=== PATIENT | male | born 1960 | race Caucasian/White ===

== ENCOUNTER 2018-05-11 08:28 | Inpatient (IN) | payer SELFPAY ==
[2018-05-11] VITALS (7 sets, daily range): BP systolic 141–171; BP diastolic 71–99; PULSE 75–108; RESP 15–19; TEMP 36.1–37.3; O2SAT 92–99
--- NOTE | 2018-05-11 09:16 | DI.RAD_ITS ---
SYMPTOMS/DIAGNOSIS: LEFT UPPER QUADRANT ABDOMINAL PAIN, ? ACUTE DISEASE PA AND LATERAL CHEST: There are no prior comparison exams. A hiatal hernia is noted. The lungs are suboptimally inflated on both views, but appear clear. The heart size is within normal limits. IMPRESSION: Hiatal hernia. No acute abnormality.
--- NOTE | 2018-05-11 09:19 | ED.GENADUL_ITS ---
Discharge Plan Discharge Details Chief Complaint: Abd Prob Reason For Visit: ACUTE GALLSTONE PACREATITIS,TRANSMINITIS Admit Date/Time: 05/11/18 11:41 Admit Provider: Jer Olmstead Attending Provider: Jer Olmstead Primary Care Provider: Amos Guevara ED Provider: Dorita Aguirre Discharge Data Discharge Date/Time-TO BE ENTERED AT DEPARTURE: 05/11/18 13:18 Medical Decision Making MDM Narrative Medical decision making narrative: 57-year-old male with a history of gallstones , diabetes, hypertension, hyperlipidemia who presents for dull, sharp, cramping intermittent left upper quadrant abdominal pain since last night. States pain started after eating a T-bone steak. Admits to vomiting 3 times since then, which is mainly been food and clear, last occurring at 7 AM. No relief with Tylenol. Blood pressure 141/71, otherwise vitals within normal limits. Patient appears uncomfortable. Will place an IV, bolus IV fluids, labs, chest x-ray, EKG, ultrasound gallbladder to rule out acute cholecystitis. Dose of morphine ordered. 0848 --EKG notes a rate of 76, sinus, no acute ST elevation or depression. QTc 432. QRS 94. 0915 --no relief after 1st dose of morphine. Second dose morphine ordered. 1000 --lab called to state patient's lipase delayed due to lipemic blood. 1040 --discussed with radiologist Dr. Talamantes -abdominal ultrasound with gallstones but no signs of acute cholecystitis. No biliary dilatation, no pericholecystic fluid, common bile duct normal. Labs reviewed and no white blood cell count 14. Glucose 269. Bicarb 26.4. Anion gap 9.6. Lipase 14,714. Creatinine 1.14. AST 196. ALT 207. Alk phos 183. Troponin 0.03. Presentation appears consistent with gallstone pancreatitis. Will call surgery for admission. Will order CT abdomen and pelvis. 1130 --discussed with Dr. Olmstead -accepts patient for admission. Would like continued fluids and pain medication ordered. Dr. Olmstead will follow up on CT abdomen. 1452 --CT notes severe pancreatitis. CXR no acute disease. HPI - General Adult General Mode of arrival: ambulatory . Date/Time Provider Initiated Documentation: 05/11/18 08:43 . Limitations to Documentation: no limitations . Information obtained by: patient . HPI Narrative: Patient is a 57-year-old male with morbid obesity, diabetes, hypertension, hyperlipidemia and known history of gallstones who presents with left upper quadrant pain since last night. Patient describes the pain is intermittent, dull, sharp and cramping without radiation. Patient vomited 3 times, last at 7 AM which is mainly food and clear. He ate a fatty meal of the [employer] last night. He denies any relief with Tylenol. He denies known fever, urinary symptoms, or diarrhea. He denies chest pain or shortness of breath. Patient states I think it is my gallstones. Past medical history: Diabetes, hypertension, hyperlipidemia Surgical history: Neck lipoma resection Social history: rare ETOH none recent, no tobacco or drugs Meds: Exforge, Aspirin, Lipitor, Metformin, Metoprolol, Sertraline, Spirinolactone, Terazosin Allergies: Denies PCP: Dr. Guevara Related Data Home Medications Medication Instructions Recorded Confirmed amlodipine-valsartan [Exforge 1 ea PO DAILY 10/04/13 05/11/18 10-320 mg Tablet] aspirin [Aspir 81] 81 mg PO DAILY 10/04/13 10/04/13 metformin 500 mg PO BID 10/04/13 10/04/13 metoprolol succinate 200 mg PO DAILY 10/04/13 05/11/18 sertraline 100 mg PO DAILY 10/04/13 05/11/18 atorvastatin 40 mg PO DAILY 05/11/18 05/11/18 spironolactone 25 mg PO DAILY 05/11/18 05/11/18 terazosin 5 mg PO DAILY 05/11/18 05/11/18 Allergies Allergy/AdvReac Type Severity Reaction Status Date / Time No Known Allergies Allergy Unverified 10/04/13 15:23 General Stated Complaint: Abd Prob CHRISTIANO: 3 Review of Systems Review of Systems All systems reviewed & are unremarkable except as noted in HPI and below Constitutional Denies chills, Denies excessive sweating, Denies fatigue, Denies fever(s), Denies weakness and Denies weight loss Eyes Patient Reports system reviewed and no additional complaints, except as docu and Denies blurry vision ENT Denies vertigo, Denies dizziness, Denies otalgia, Denies nasal congestion, Denies sore throat and Denies throat swelling Cardiovascular Denies chest pain, Denies syncope, Denies rapid heart rate and Denies dyspnea Respiratory Denies dyspnea Gastrointestinal Reports abdominal pain, Denies diarrhea, Reports nausea and Reports vomiting Genitourinary Denies hematuria, Denies dysuria and Denies flank pain Musculoskeletal Denies back pain and Denies joint swelling Integumentary/Breasts Denies lesions and Denies rash Neurologic Denies behavioral changes, Denies confusion, Denies vertigo, Denies dizziness, Denies syncope and Denies weakness Psychiatric Denies behavioral changes, Denies confusion and Denies depression Endocrine Denies excessive sweating and Denies fatigue Hematologic/Lymphatic Denies easy bruising and Denies lymphadenopathy Allergic/Immunologic Denies throat swelling [facility] Medical History Acute gallstone pancreatitis (Acute) Diabetes type 2, controlled (Chronic) Essential hypertension (Chronic) Hyperlipidemia (Chronic) Morbid obesity with BMI of 50.0-59.9, adult (Chronic) Social History household members: spouse marital status: current occupation: [employer] Smoking/Tobacco Use Status: Never alcohol intake: current alcohol intake frequency: holidays/special occasions only Alcohol type: beer, wine and hard liquor substance use type: does not use Surgical History History of tonsillectomy (Resolved) Exam Const General: cooperative Nutritional Appearance: obese Orientation: alert, awake and oriented x3 HENMT Head: normal to inspection Ears: hearing grossly normal bilaterally and external ears normal General nose exam: external nose normal Face and sinus: normal facial exam Mouth: oral mucosae normal Eyes General: appearance normal, both eyes and all related structures Eyelids: eyelids normal Pupils: PERRL EOM: EOM intact bilaterally Neck Neck: normal visual inspection Lymphatic: no lymphadenopathy noted Chest Chest: normal inspection of the chest Resp Effort & Inspection: normal respiratory effort and able to speak in complete sentences Auscultation: clear to auscultation bilaterally Cardio Rate: regular rate Rhythm: regular rhythm GI Inspection: normal to inspection Palpation: soft, no guarding, no hepatosplenomegaly, no masses and tender ( obese abdomen) in the epigastrum, in the LUQ and in the RUQ; not in the LLQ, not in the RLQ and with no rebound tenderness Auscultation: normal bowel sounds Back/Spine/Pelvis Back: no CVA tenderness Skin General skin exam: no rashes or lesions noted Neuro General: alert and awake Cognition: normal cognition Speech: speech normal Gait: normal gait Motor: muscle tone normal throughout Sensory Exam: no sensory deficits noted Extrem General: normal to inspection and full ROM Psych Appearance: grossly normal Mental Status: mental status grossly normal Speech and Movement: speech and movement normal Affect: normal affect Thought Process: normal Course Vital Signs Temperature 97.0 F L 05/11/18 08:43 Pulse 75 05/11/18 08:43 Respiratory Rate 15 05/11/18 08:43 Blood Pressure 141/71 H 05/11/18 08:43 Pulse Oximetry 99 05/11/18 08:43 Temperature 97.0 F L 05/11/18 08:43 Pulse 75 05/11/18 08:43 Respiratory Rate 15 05/11/18 08:43 Blood Pressure 141/71 H 05/11/18 08:43 Pulse Oximetry 99 05/11/18 08:43
[2018-05-11 09:23] LABS: Abs Immature Grans 0.02 k/cumm (0.0-0.09); Absolute Basophil Count 0.01 k/cumm (0.0-0.2); Absolute Eosinophil Count 0.01 k/cumm (0.0-0.7); Absolute Lymphocyte Count 0.89 k/cumm (1.2-3.4); Absolute Monocyte Count 0.67 k/cumm (0.11-0.7); Absolute Neutrophil Count 13.05 k/cumm (1.2-6.7); Basophils % 0.1; Eosinophils % 0.1; HCT 40.4 % (40.0-50.0); HGB 13.1 g/dL (13.5-17.5); Immature Grans % 0.1; Lymphocytes % 6.1; Mean Corp. HGB Concentration 32.4 g/dL (32.0-36.0); Mean Corpuscular Hemoglobin 29.3 pg (27.0-33.0); Mean Corpuscular Volume 90.4 fL (80-95); Mean Platelet Volume 9.5 fL (8.0-11.0); Monocytes % 4.6; Platelet Count 303 x1000/uL (130-400); RBC 4.47 m/cumm (4.50-6.00); White Blood Cell Count 14.66 k/cumm (4.4-10.8)
[2018-05-11] MEDS: MORPHine 10 MG/ML VIAL 4 MG IVP ×2 (09:26→10:14)
[2018-05-11 09:32] LABS: ALT 207 U/L (12-78); AST 196 U/L (15-37); Albumin 3.5 g/dL (3.4-5.0); Alkaline Phosphatase 183 U/L (46-116); Anion Gap 9.6 mmol/L (3-11); BUN 24 mg/dL (7-18); Bilirubin, Direct 0.28 mg/dL (0.00-0.20); Bilirubin, Total 0.8 mg/dL (0.2-1.0); CO2 26.4 mmol/L (21.0-32.0); CREATININE 1.14 mg/dL (0.70-1.30); Calcium 9.3 mg/dL (8.5-10.1); Chloride 102 mmol/L (98-107); Glucose 269 mg/dL (70-100); Magnesium 1.9 mg/dL (1.8-2.4); Potassium 4.1 mmol/L (3.5-5.1); Sodium 138 mmol/L (136-145); Total Protein 7.4 g/dL (6.4-8.2); Troponin I 0.03 ng/mL (0.00-0.06)
--- NOTE | 2018-05-11 09:39 | DI.US_ITS ---
SYMPTOM/DIAGNOSIS: UPPER ABD PAIN, R/O ACUTE CHOLECYSTITIS ABDOMEN ULTRASOUND: Comparison is made with 24 March 2014. The exam is quite limited by the patient's body habitus. Stones are again noted in the gallbladder. There is no abnormal gallbladder distension or wall thickening. There is a question of worsening of the liver echotexture. The spleen is at the upper limits of normal in size, 13 cm , unchanged when compared with the previous exam. There is no evidence of biliary dilatation. There is a question of a small amount of fluid near the spleen. The pancreas and aorta are obscured by bowel gas. There is no evidence of hydronephrosis. An area of echogenicity is seen in the right kidney which may be artifactual vs nonobstructing stone. An additional similar appearing echogenic focus is seen in the left renal parenchyma. IMPRESSION: Limited exam due to the patient's body habitus. Cholelithiasis is demonstrated. There is no evidence of biliary dilatation or acute cholecystitis. There is a question of artifact vs nonobstructing bilateral renal calculi.
[2018-05-11 10:19] LABS: Lipase 14714 U/L (73-393)
[2018-05-11] MEDS: Normal Saline 1,000 ML 1000 ML IV (11:14)
[2018-05-11] MEDS: HYDROmorphone 2 MG/ML VIAL (11:16)
--- NOTE | 2018-05-11 11:42 | DI.CT_ITS ---
SYMPTOMS/DIAGNOSIS: GALLSTONE PANCREATITIS, ? ACUTE ABSCESS CT OF THE ABDOMEN AND PELVIS: Images were performed from the lung bases through the ischial tuberosities after IV and without oral contrast. There are tiny bilateral pleural effusions. There is a moderate-sized hiatal hernia. There is a large amount of inflammation seen around the pancreas with fluid seen medial and inferior to the spleen. The liver, spleen, adrenals and kidneys appear normal. There is secondary inflammation of the duodenum. Gallstones are again noted. There is no gallbladder wall thickening. No bowel dilatation is seen. The appendix appears normal. The bladder and prostate are unremarkable. IMPRESSION: Findings are consistent with severe pancreatitis and secondary inflammation of the duodenum. There is cholelithiasis without evidence of cholecystitis.
--- NOTE | 2018-05-11 12:57 | W.PM.HP.N ---
Date of service: 05/11/18 Time of Service: 12:57 Assessment and Plan (1) Acute gallstone pancreatitis: Start date: 05/11/18 Start time: 13:27 Current visit: Yes Status: Acute 57-year-old gentleman with acute gallstone pancreatitis. I reviewed the findings both diagnostic and clinical with Mr. juan alberto Deleon. Will admit him for conservative treatment of gallstone pancreatitis with: IV fluids, antiemetics, pain medication. Repeat labs in the morning to trend lipase and follow bilirubin. Eventual plan for cholecystectomy prior to discharge if the pancreatitis improves and there is no evidence of obstructing stone otherwise will need MRCP/ERCP to evaluate treat for potential obstructing gallstone. History of Present Illness Chief Complaint: Abdominal pain Narrative: 57-year-old gentleman presenting to emergency room less than 24 hours of sudden onset abdominal pain. He has associated nausea and vomiting. He has had pain similar to this in the past but not as intense. He has known gallstones. He has had 4-5 attacks over the last 5 years. His last attack was in March. Review of Systems Constitutional Reports body ache(s), Denies chills, Reports difficulty sleeping, Reports fatigue, Denies fever(s), Denies lethargy and Reports malaise Eyes Patient Denies blurry vision, Denies diplopia and Denies loss of vision ENT Denies vertigo, Denies dizziness, Denies hearing loss, Denies hoarseness, Denies epistaxis and Denies sore throat Cardiovascular Denies chest pain at rest, Denies chest pain with activity, Denies rapid heart rate, Denies pedal edema, Denies dyspnea and Denies dyspnea on exertion Respiratory Denies chest congestion, Denies cough, Denies dyspnea, Denies dyspnea on exertion and Denies wheezing Gastrointestinal Reports abdominal pain, Denies melena, Denies bloating, Denies hematochezia, Denies change in bowel habits, Denies heartburn, Reports nausea and Reports vomiting Genitourinary Denies urinary frequency, Denies urinary hesitancy and Denies urinary urgency Musculoskeletal Denies back pain, Denies myalgias, Denies arthralgias and Denies muscle weakness Integumentary/Breasts Denies rash and Denies jaundice Neurologic Denies behavioral changes, Denies confusion, Denies vertigo, Denies dizziness, Denies focal weakness, Denies loss of vision and Denies seizure-like activity Psychiatric Denies anxiety, Denies behavioral changes, Denies confusion, Denies depression, Reports irritability and Denies mood swings Endocrine Reports fatigue Hematologic/Lymphatic Denies easy bleeding and Denies easy bruising Allergic/Immunologic Denies wheezing PFSH Medical History Acute gallstone pancreatitis (Acute) Diabetes type 2, controlled (Chronic) Essential hypertension (Chronic) Hyperlipidemia (Chronic) Morbid obesity with BMI of 50.0-59.9, adult (Chronic) Social History household members: spouse marital status: 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 Smoking/Tobacco Use Status: Never alcohol intake: current alcohol intake frequency: holidays/special occasions only Alcohol type: beer, wine and hard liquor substance use type: does not use Surgical History History of tonsillectomy (Resolved) Meds Home Medications Medication Instructions Recorded Confirmed Type amlodipine-valsartan [Exforge 1 ea PO DAILY 10/04/13 10/04/13 History 10-320 mg Tablet] aspirin [Aspir 81] 81 mg PO DAILY 10/04/13 10/04/13 History metformin 500 mg PO BID 10/04/13 10/04/13 History metoprolol succinate 200 mg PO DAILY 10/04/13 10/04/13 History sertraline 100 mg PO DAILY 10/04/13 10/04/13 History Allergies Allergy/AdvReac Type Severity Reaction Status Date / Time No Known Allergies Allergy Unverified 10/04/13 15:23 Exam Const General: cooperative, well groomed and acute distress mild Nutritional Appearance: obese morbidly obese Orientation: alert, awake and oriented x3 HENMT Head: normal to inspection Face and sinus: normal facial exam Eyes Sclera: sclerae normal Pupils: PERRL EOM: EOM intact bilaterally Neck Neck: normal visual inspection, no lymphadenopathy, trachea midline and supple Chest Chest: normal inspection of the chest Resp Effort & Inspection: normal respiratory effort, no audible wheezes, no cough and not labored Cardio Rate: regular rate Rhythm: regular rhythm GI Inspection: normal to inspection, non-distended, no incisions, large pannus and obesity Palpation: soft and tender in the epigastrum and in the RUQ Rectal Exam: deferred Skin General skin exam: no rashes or lesions noted Extrem General: full ROM, normal capillary refill and no clubbing, cyanosis or edema Psych Appearance: well kempt Mental Status: mental status grossly normal Judgment: judgment good Results Imaging Chest x-ray: report reviewed Abdomen CT scan report/results: pending CT scan - pelvis: pending Abdominal ultrasound report/results: report reviewed Labs : 05/11/18 09:07 05/11/18 09:07 Laboratory Results - last 24 hr 05/11/18 05/11/18 05/11/18 09:07 09:07 12:38 WBC 14.66 H RBC 4.47 L Hgb 13.1 L Hct 40.4 MCV 90.4 MCH 29.3 MCHC 32.4 RDW 13.0 Plt Count 303 MPV 9.5 Immature Gran % 0.1 Neutrophils % 89.0 Lymphocytes % 6.1 Monocytes % 4.6 Eosinophils % 0.1 Basophils % 0.1 Absolute Neutrophils 13.05 H Absolute Lymphocytes 0.89 L Absolute Monocytes 0.67 Absolute Eosinophils 0.01 Absolute Basophils 0.01 Sodium 138 Cancelled Potassium 4.1 Cancelled Chloride 102 Cancelled Carbon Dioxide 26.4 Cancelled Anion Gap 9.6 Cancelled BUN 24 H Cancelled Creatinine 1.14 Cancelled Estimated GFR/1.73 m2 >= 60.00 Cancelled Glucose 269 H Cancelled Calcium 9.3 Cancelled Magnesium 1.9 Cancelled Total Bilirubin 0.8 Cancelled Conjugated Bilirubin 0.28 H AST 196 H Cancelled ALT 207 H Cancelled Alkaline Phosphatase 183 H Cancelled Troponin I 0.03 C-Reactive Protein Cancelled Total Protein 7.4 Cancelled Albumin 3.5 Cancelled Lipase 52234 H 05/11/18 12:48 WBC RBC Hgb Hct MCV MCH MCHC RDW Plt Count MPV Immature Gran % Neutrophils % Lymphocytes % Monocytes % Eosinophils % Basophils % Absolute Neutrophils Absolute Lymphocytes Absolute Monocytes Absolute Eosinophils Absolute Basophils Sodium Cancelled Potassium Cancelled Chloride Cancelled Carbon Dioxide Cancelled Anion Gap Cancelled BUN Cancelled Creatinine Cancelled Estimated GFR/1.73 m2 Cancelled Glucose Cancelled Calcium Cancelled Magnesium Total Bilirubin Cancelled Conjugated Bilirubin AST Cancelled ALT Cancelled Alkaline Phosphatase Cancelled Troponin I C-Reactive Protein Total Protein Cancelled Albumin Cancelled Lipase
--- NOTE | 2018-05-11 13:30 | DI.VRAD_ITS ---
EXAM: XR Chest, 2 Views EXAM DATE/TIME: 05/11/2018 12:48 PM CLINICAL HISTORY: 57 years old, male; Pain; Other: Gallstone pancreatitis R/O acute abscess TECHNIQUE: XR of the chest, 2 views. COMPARISON: No relevant prior studies available. FINDINGS: Lungs: Low lung volumes Pleural space: Unremarkable. No pleural effusion. No pneumothorax. Heart/Mediastinum: Air-fluid level in the retrocardiac region consistent with hiatal hernia Cardiomegaly Bones/joints: Unremarkable for patient's age. IMPRESSION: No acute process Dictated and Authenticated by: Rekha Carver MD. Ordering:MARK COULTER MD
--- NOTE | 2018-05-11 13:41 | DI.VRAD_ITS ---
EXAM: CT Abdomen and Pelvis With Intravenous Contrast EXAM DATE/TIME: 05/11/2018 12:42 PM CLINICAL HISTORY: 57 years old, male; Pain; Other: Luq abd pain R/O acute disease TECHNIQUE: Axial computed tomography images of the abdomen and pelvis with intravenous contrast. Coronal and sagittal reformatted images were created and reviewed. COMPARISON: US ABDOMEN 05/11/2018 9:41 AM FINDINGS: Lower thorax: Moderate hiatal hernia ABDOMEN: Liver: Normal. No mass. Gallbladder and bile ducts: Gallstones in the gallbladder with adjacent inflammatory changes may represent primary cholecystitis or secondary cholecystitis from adjacent pancreatitis. Pancreas: Normal. No ductal dilation. Spleen: Severe pancreatitis with fluid extending around the spleen and into the left upper quadrant. Inflammatory changes extend around the stomach and duodenum. Fluid extends into the left pericolic gutter and around the gallbladder. Adrenals: 3.1 cm right adrenal adenoma. Kidneys and ureters: 15 mm nodule right kidney 33 Hounsfield units. Stomach and bowel: No obstruction. No mucosal thickening. Inflammatory changes surround the stomach and duodenum and loops of small bowel Appendix: Normal appendix PELVIS: Bladder: Distended bladder . Reproductive: Unremarkable as visualized. ABDOMEN and PELVIS: Intraperitoneal space: Normal. No free air. No significant fluid collection. Bones/joints: No acute fracture. No dislocation. Soft tissues: No evidence of abscess. Ventral hernia contains fat Vasculature: No thrombus in the portal vein or splenic vein. Lymph nodes: Normal. No enlarged lymph nodes. IMPRESSION: 1. Severe pancreatitis with fluid extending around the spleen and into the left upper quadrant. Inflammatory changes extend around the stomach and duodenum. Fluid extends into the left pericolic gutter and around the gallbladder. 2. Gallstones in the gallbladder with adjacent inflammatory changes may represent primary cholecystitis or secondary cholecystitis from adjacent pancreatitis. 3. No thrombus in the portal vein or splenic vein. 4. No evidence of abscess. 5. 3.1 cm right adrenal adenoma. 6. 15 mm nodule right kidney 33 Hounsfield units. THIS REPORT CONTAINS FINDINGS THAT MAY BE CRITICAL TO PATIENT CARE. The findings were verbally communicated via telephone conference with Dr. Jimenez at 1:40 PM EDT on 05/11/2018. The findings were acknowledged and understood. Dictated and Authenticated by: Rekha Carver MD. Ordering:MARK COULTER MD
[2018-05-11] MEDS: ACETAMINOPHEN 1,000 MG/100 ML BTL 400 MG IVPB ×2 (14:41→21:53)
[2018-05-11] MEDS: Lactated Ringers 1,000 ML 150 ML IV ×2 (14:41→21:04)
[2018-05-11] MEDS: Pantoprazole 40 MG VIAL IVP (14:42)
[2018-05-11] MEDS: Normal Saline Flush 10 ML SYR IVP ×5 (14:43→23:49)
[2018-05-11] MEDS: Ondansetron 4 MG/2 ML VIAL IVP ×2 (17:13→23:49)
[2018-05-11] MEDS: Enoxaparin 40 MG/0.4 ML SYR SC (19:21)
[2018-05-11] MEDS: HYDROmorphone 2 MG/ML VIAL 0.5 MG IVP (21:11)
[2018-05-12] VITALS (13 sets, daily range): BP systolic 93–142; BP diastolic 55–88; PULSE 87–141; RESP 17–20; TEMP 36.7–37.6; O2SAT 82–93
[2018-05-12] MEDS: Normal Saline Flush 10 ML SYR IVP ×8 (03:17→20:49)
[2018-05-12] MEDS: Lactated Ringers 1,000 ML 150 ML IV ×2 (03:29→10:23)
[2018-05-12] MEDS: ACETAMINOPHEN 1,000 MG/100 ML BTL 400 MG IVPB ×3 (06:01→21:30)
[2018-05-12] MEDS: HYDROmorphone 2 MG/ML VIAL 0.5 MG IVP ×2 (06:01→09:57)
[2018-05-12 07:36] LABS: Abs Immature Grans 0.05 k/cumm (0.0-0.09); Absolute Monocyte Count 1.58 k/cumm (0.11-0.7); HCT 40.6 % (40.0-50.0); Immature Grans % 0.2; Lymphocytes % 3.3; Mean Corpuscular Hemoglobin 29.6 pg (27.0-33.0); Mean Corpuscular Volume 92.5 fL (80-95); Mean Platelet Volume 9.8 fL (8.0-11.0); Monocytes % 6.9; Neutrophils % 89.8; Platelet Count 331 x1000/uL (130-400); RBC 4.39 m/cumm (4.50-6.00); RBC Distribution Width 13.6 % (11.8-14.1); White Blood Cell Count 22.87 k/cumm (4.4-10.8)
[2018-05-12 07:50] LABS: C-Reactive Protein 9.31 mg/dL (0.0-0.3); Magnesium 1.7 mg/dL (1.8-2.4)
[2018-05-12 07:54] LABS: Absolute Lymphocyte Count 0.75 k/cumm (1.2-3.4); Absolute Neutrophil Count 20.54 k/cumm (1.2-6.7)
[2018-05-12 07:56] LABS: ALT 109 U/L (12-78); AST 49 U/L (15-37); Albumin 2.9 g/dL (3.4-5.0); Alkaline Phosphatase 133 U/L (46-116); Anion Gap 8.1 mmol/L (3-11); BUN 23 mg/dL (7-18); Bilirubin, Total 0.5 mg/dL (0.2-1.0); CO2 27.9 mmol/L (21.0-32.0); CREATININE 1.15 mg/dL (0.70-1.30); Calcium 7.8 mg/dL (8.5-10.1); Chloride 103 mmol/L (98-107); Glucose 187 mg/dL (70-100); Potassium 3.9 mmol/L (3.5-5.1); Sodium 139 mmol/L (136-145); Total Protein 6.7 g/dL (6.4-8.2)
[2018-05-12 08:11] LABS: Lipase 4537 U/L (73-393)
[2018-05-12 08:12] LABS: ESR 35 MM/HR (1-20)
[2018-05-12] MEDS: Sertraline 50 MG TAB 100 MG PO (09:11)
[2018-05-12] MEDS: amLODIPine 10 MG TAB PO (09:11)
[2018-05-12] MEDS: Metoprolol 50 MG TAB PO (09:11)
[2018-05-12] MEDS: Valsartan 80 MG TAB 320 MG PO (09:50)
--- NOTE | 2018-05-12 11:07 | PHARADMIT ---
Addendum entered by David Holder III 05/13/18 10:28: Pharmacy Note Subjective MD increased IV Fluids (LR @200mL/hr) due to soft BP Objective VS-OK (BP- 129/70) Pain:8 Lipase 1,925 (Dropping) LFTs normalizing Lytes,Plts-ok SCr-1.5 (up) WBC-19.87 H&H- 11.1/36.1 No BM yet Assessment Home BP meds ordered (w/parameters). holding of on ABX for high WBC (thinks it's related to pancreatic inflammation) Plan Patient is improving, awaiting Lipase to continue dropping. Original Note: Admission Pharmacy Clinical Review Acute Galllstone, Panacreatitis,, Transaminitis Code Status Full Code Current Weight Wgt- 170.2 kg Renally Cleared and Narrow Therapeutic Index Meds CrCl~ 8 mL/min Meds-OK QTc Value / Action Taken na (on Sertraline) BP Control, Fever BP-117/75 Tmax-37.2C Electrolytes reviewed Na- 139 K+3.9 Mag-1.7 DVT Prophylaxis Lovenox 40mg Opiate Usage / Scheduled Bowel Regimen Ordered Yes No Plt/SCr for Heparin / Enoxaparin Plts--331 SCr-1.15 INR for Warfarin na H/H stable, WBC/Bands H&H- 13.0/40.6 WBC- 22.87 Antibiotic appropriateness none Cultures and Sensitivities none Surgical ABX d/c within 24 hr ns DM control / Insulin Dosing BG- 187 Aspart Heart Failure (Check EF%) (MEGHAN's, B-Block, Diuretics) Norvasc, Lopressor, Hytrin, Valsartan IV to PO Switch No Home Meds Reviewed Yes Home Meds Not Ordered Metformin, Spironolactone, Toprol-XL Comments Lipase- 14,714 ^ 4,537
[2018-05-12] MEDS: Insulin Aspart 300 UNITS/3 ML PEN SC ×2 (11:40→18:26)
[2018-05-12] MEDS: Pantoprazole 40 MG VIAL IVP (11:51)
--- NOTE | 2018-05-12 13:09 | PDOC.CMIN ---
Care Management Initial Assess REASON FOR HOSPITALIZATION:: Acute Gallstone pancreatitis, transminitis PAST MEDICAL HISTORY/PAST SURGICAL HISTORY:: Diabetes non-insulin dependent, hypertension, Hyperlipidemia,. Morbid obesity with BMI of 50.0-59.9, high cholesterol, depression, tonsillectomy, lipoma from neck PREVIOUS FUNCTIONAL STATUS/SOCIAL/FAMILY SUPPORTS:: Terry resides in [place], [place] with his , Autumn. He is currently working as a mail sorter and delivery; is independent with all ADLs in the community. CURRENT FUNCTIONAL STATUS:: Terry appears to struggle to engage; he is quite pleasant in interaction, though not focused on providing information as he shares concerns around next steps in treatment and updates on his lab results. CM notifies Charito CULVER and Nahum WHITTAKER of this information. ADVANCE DIRECTIVES:: To be provided. Has patient been provided with information about the portal?: No Did the patient sign up for the portal?: No CODE STATUS:: Full Code INSURANCE COVERAGE / FINANCIAL ISSUES:: Self Pay status; to be discussed with patient when better able to engage. CURRENT HOME/COMMUNITY SERVICES/EQUIPMENT:: No current services or equipment. PRIMARY CARE PHYSICIAN:: Amos Guveara MD: [facility]. POTENTIAL DISCHARGE NEEDS:: Follow up appointments. PATIENT/FAMILY EDUCATION NEEDS:: Review discharge instructions, discuss Ask Me Three. ANTICIPATED BARRIERS TO DISCHARGE:: None identified. TRANSPORTATION:: Via private vehicle with his . PLAN:: Terry will return home when ready per MD. CM will continue to monitor clinical progress and support discharge planning considerations. Terry will transport via private vehicle with his , Autumn.
--- NOTE | 2018-05-12 14:45 | PGE_ITS ---
Date of service: 05/12/18 Time of Service: 14:34 Assessment and Plan (1) Acute gallstone pancreatitis: Start date: 05/11/18 Start time: 13:27 Current visit: Yes Status: Acute Gallstone Pancreatitis: We will continue fluids increasing rate to 200 mils an hour, lipase is improving pain is improving, white count did increase to 22,000 we will continue to monitor this recheck labs tomorrow. Hypertension: Have restarted his home medications Diabetes: His diabetes is usually diet controlled but will start him on finger sticks and cover him with sliding scale insulin Pain management: Seems to be doing well with current pain regimen will start to transition him to oral once pancreatitis resolved. Infectious disease: White count is elevated but holding off on antibiotics suspect this is secondary to his inflammation from the pancreatitis. Cholelithiasis: Still plan on laparoscopic cholecystectomy prior to discharge. Disposition: Continue current care Subjective Patient reports: feels better, still having pain, pain is less and no bowel movement; denies nausea, vomiting and shortness of breath Exam Const General: cooperative and no acute distress Nutritional Appearance: obese Orientation: alert, awake and oriented x3 Resp Effort & Inspection: normal respiratory effort, able to speak in complete sentences, no audible wheezes and not labored Cardio Rate: regular rate Rhythm: regular rhythm GI Inspection: large pannus and obesity Palpation: tender in the epigastrum; with no rebound tenderness Skin General skin exam: no rashes or lesions noted Extrem General: normal capillary refill and no clubbing, cyanosis or edema Objective Objective Clinical Data: Abnormal lab results 05/12/18 05/12/18 05/12/18 Range/Units 06:35 06:35 06:35 WBC 22.87 H D (4.4-10.8) k/cumm RBC 4.39 L (4.50-6.00) m/cumm Hgb 13.0 L (13.5-17.5) g/dL Absolute Neutrophils 20.54 H (1.2-6.7) k/cumm Absolute Lymphocytes 0.75 L (1.2-3.4) k/cumm Absolute Monocytes 1.58 H (0.11-0.7) k/cumm ESR 35 H (1-20) MM/HR BUN 23 H (7-18) mg/dL Glucose 187 H D (70-100) mg/dL Calcium 7.8 L (8.5-10.1) mg/dL Magnesium 1.7 L (1.8-2.4) mg/dL AST 49 H (15-37) U/L ALT 109 H (12-78) U/L Alkaline Phosphatase 133 H (46-116) U/L C-Reactive Protein 9.31 H (0.0-0.3) mg/dL Albumin 2.9 L (3.4-5.0) g/dL Lipase 4537 H (73-393) U/L Vital Signs Temp 37.3 C 05/12/18 11:35 Pulse 87 05/12/18 11:35 Resp 19 05/12/18 11:35 BP 124/73 05/12/18 11:35 Pulse Ox 93 L 05/12/18 11:35 Intake & Output 05/11/18 05/12/18 05/12/18 18:59 06:59 18:59 Intake Total 770 / 770 1882.5 / 1882.5 627.5 / 627.5 Output Total 1050 / 1050 650 / 650 200 / 200 Balance -280 / -280 1232.5 / 1232.5 427.5 / 427.5 Weight 170.2 kg Intake: IV 770 / 770 1882.5 / 1882.5 597.5 / 597.5 Oral 30 / 30 Output: Urine 1050 / 1050 650 / 650 200 / 200 Other: Urine Color Light Clementina Light Clementina Dark Clementina Urine Appearance Clear Clear Urine Odor None None Comment Void x1 in the toilet. Voiding Methods Toilet Urinal Urinal Laboratory Results WBC 22.87 k/cumm (4.4-10.8) H D 05/12/18 06:35 RBC 4.39 m/cumm (4.50-6.00) L 05/12/18 06:35 Hgb 13.0 g/dL (13.5-17.5) L 05/12/18 06:35 Hct 40.6 % (40.0-50.0) 05/12/18 06:35 MCV 92.5 fL (80-95) 05/12/18 06:35 MCH 29.6 pg (27.0-33.0) 05/12/18 06:35 MCHC 32.0 g/dL (32.0-36.0) 05/12/18 06:35 RDW 13.6 % (11.8-14.1) 05/12/18 06:35 Plt Count 331 x1000/uL (130-400) 05/12/18 06:35 MPV 9.8 fL (8.0-11.0) 05/12/18 06:35 Abs Immat Gran (auto) Cancelled 05/12/18 08:55 Immature Gran % 0.2 05/12/18 06:35 Neutrophils % 89.8 05/12/18 06:35 Lymphocytes % 3.3 05/12/18 06:35 Monocytes % 6.9 05/12/18 06:35 Eosinophils % 0.0 05/12/18 06:35 Basophils % 0.0 05/12/18 06:35 Absolute Neutrophils 20.54 k/cumm (1.2-6.7) H 05/12/18 06:35 Band Neutrophils Cancelled 05/12/18 08:55 Absolute Lymphocytes 0.75 k/cumm (1.2-3.4) L 05/12/18 06:35 Absolute Monocytes 1.58 k/cumm (0.11-0.7) H 05/12/18 06:35 Absolute Eosinophils 0.00 k/cumm (0.0-0.7) 05/12/18 06:35 Absolute Basophils 0.00 k/cumm (0.0-0.2) 05/12/18 06:35 Metamyelocytes Cancelled 05/12/18 08:55 Myelocytes Cancelled 05/12/18 08:55 Promyelocytes Cancelled 05/12/18 08:55 Nucleated RBCs Cancelled 05/12/18 08:55 Differential Comment Cancelled 05/12/18 08:55 Atypical Lymphocytes Cancelled 05/12/18 08:55 Other Cell Type Cancelled 05/12/18 08:55 RBC Morphology Cancelled 05/12/18 08:55 Polychromasia Cancelled 05/12/18 08:55 Hypochromasia Cancelled 05/12/18 08:55 Poikilocytosis Cancelled 05/12/18 08:55 Basophilic Stippling Cancelled 05/12/18 08:55 Anisocytosis Cancelled 05/12/18 08:55 Microcytosis Cancelled 05/12/18 08:55 Macrocytosis Cancelled 05/12/18 08:55 Spherocytes Cancelled 05/12/18 08:55 Target Cells Cancelled 05/12/18 08:55 Tear Drop Cells Cancelled 05/12/18 08:55 Ovalocytes Cancelled 05/12/18 08:55 Stomatocytes Cancelled 05/12/18 08:55 Ger[place] Bodies Cancelled 05/12/18 08:55 Belkis Cells Cancelled 05/12/18 08:55 Acanthocytes (Spur) Cancelled 05/12/18 08:55 Schistocytes Cancelled 05/12/18 08:55 ESR 35 MM/HR (1-20) H 05/12/18 06:35 Sodium 139 mmol/L (136-145) 05/12/18 06:35 Potassium 3.9 mmol/L (3.5-5.1) 05/12/18 06:35 Chloride 103 mmol/L (98-107) 05/12/18 06:35 Carbon Dioxide 27.9 mmol/L (21.0-32.0) 05/12/18 06:35 Anion Gap 8.1 mmol/L (3-11) 05/12/18 06:35 BUN 23 mg/dL (7-18) H 05/12/18 06:35 Creatinine 1.15 mg/dL (0.70-1.30) 05/12/18 06:35 Estimated GFR/1.73 m2 >= 60.00 (mL/min/1.73m2) 05/12/18 06:35 Glucose 187 mg/dL (70-100) H D 05/12/18 06:35 Calcium 7.8 mg/dL (8.5-10.1) L 05/12/18 06:35 Magnesium 1.7 mg/dL (1.8-2.4) L 05/12/18 06:35 Total Bilirubin 0.5 mg/dL (0.2-1.0) 05/12/18 06:35 Conjugated Bilirubin 0.28 mg/dL (0.00-0.20) H 05/11/18 09:07 AST 49 U/L (15-37) H 05/12/18 06:35 ALT 109 U/L (12-78) H 05/12/18 06:35 Alkaline Phosphatase 133 U/L (46-116) H 05/12/18 06:35 Troponin I 0.03 ng/mL (0.00-0.06) 05/11/18 09:07 C-Reactive Protein 9.31 mg/dL (0.0-0.3) H 05/12/18 06:35 Total Protein 6.7 g/dL (6.4-8.2) 05/12/18 06:35 Albumin 2.9 g/dL (3.4-5.0) L 05/12/18 06:35 Lipase 4537 U/L (73-393) H 05/12/18 06:35
--- NOTE | 2018-05-12 15:43 | INITIAL_ITS ---
Care Management Initial Assess REASON FOR HOSPITALIZATION:: Acute Gallstone pancreatitis, transminitis PAST MEDICAL HISTORY/PAST SURGICAL HISTORY:: Diabetes non-insulin dependent, hypertension, Hyperlipidemia,. Morbid obesity with BMI of 50.0-59.9, high cholesterol, depression, tonsillectomy, lipoma from neck PREVIOUS FUNCTIONAL STATUS/SOCIAL/FAMILY SUPPORTS:: Terry resides in [place], [place] with his , Autumn. He is currently working as a data entry email processor; is independent with all ADLs in the community. CURRENT FUNCTIONAL STATUS:: Terry appears to struggle to engage; he is quite pleasant in interaction, though not focused on providing information as he shares concerns around next steps in treatment and updates on his lab results. CM notifies Charito CULVER and Nahum WHITTAKER of this information. ADVANCE DIRECTIVES:: To be provided. Has patient been provided with information about the portal?: No Did the patient sign up for the portal?: No CODE STATUS:: Full Code INSURANCE COVERAGE / FINANCIAL ISSUES:: Self Pay status; to be discussed with patient when better able to engage. CURRENT HOME/COMMUNITY SERVICES/EQUIPMENT:: No current services or equipment. PRIMARY CARE PHYSICIAN:: Amos Guevara MD: [facility]. POTENTIAL DISCHARGE NEEDS:: Follow up appointments. PATIENT/FAMILY EDUCATION NEEDS:: Review discharge instructions, discuss Ask Me Three. ANTICIPATED BARRIERS TO DISCHARGE:: None identified. TRANSPORTATION:: Via private vehicle with his . PLAN:: Terry will return home when ready per MD. CM will continue to monitor clinical progress and support discharge planning considerations. Terry will transport via private vehicle with his , Autumn.
--- NOTE | 2018-05-12 16:34 | CHAPLAIN ---
Terry was resting with his eye closed and lights off in his room. He has a family member/friend with him. He was pleasant but not interested in a longer conversation. He asked for some ice, but his visitor said he isn't allowed any ice. He wasn't up for a longer conversation.
[2018-05-12] MEDS: MAGNESIUM SULFATE 2 GM/50 ML BAG IVPB (16:41)
--- NOTE | 2018-05-12 17:14 | W.PM.PROGNOT ---
Date of service: 05/12/18 Time of Service: 17:00 Assessment and Plan (1) Acute gallstone pancreatitis: Start date: 05/11/18 Start time: 13:27 Current visit: Yes Status: Acute Gallstone Pancreatitis: We will continue fluids increasing rate to 200 mils an hour, lipase is improving pain is improving, white count did increase to 22,000 we will continue to monitor this recheck labs tomorrow. BP has been soft. His BP meds were restarted. Will place parameters. Urine output is OK but still quite dark. Will monitor Diabetes: His diabetes is usually diet controlled but will start him on finger sticks and cover him with sliding scale insulin Pain management: Seems to be doing well with current pain regimen will start to transition him to oral once pancreatitis resolved. Infectious disease: White count is elevated but holding off on antibiotics suspect this is secondary to his inflammation from the pancreatitis. Cholelithiasis: With how severe his Pancreatitis was I think it would be better to wait 4-6 weeks before doing an elective Cholecystectomy to allow all the inflammation to resolve. Disposition: Continue current care Subjective Patient reports: no new complaints and pain is less Exam GI Inspection: normal to inspection and obesity Palpation: soft and nontender Objective Objective Clinical Data: Abnormal lab results 05/12/18 05/12/18 05/12/18 Range/Units 06:35 06:35 06:35 WBC 22.87 H D (4.4-10.8) k/cumm RBC 4.39 L (4.50-6.00) m/cumm Hgb 13.0 L (13.5-17.5) g/dL Absolute Neutrophils 20.54 H (1.2-6.7) k/cumm Absolute Lymphocytes 0.75 L (1.2-3.4) k/cumm Absolute Monocytes 1.58 H (0.11-0.7) k/cumm ESR 35 H (1-20) MM/HR BUN 23 H (7-18) mg/dL Glucose 187 H D (70-100) mg/dL Calcium 7.8 L (8.5-10.1) mg/dL Magnesium 1.7 L (1.8-2.4) mg/dL AST 49 H (15-37) U/L ALT 109 H (12-78) U/L Alkaline Phosphatase 133 H (46-116) U/L C-Reactive Protein 9.31 H (0.0-0.3) mg/dL Albumin 2.9 L (3.4-5.0) g/dL Lipase 4537 H (73-393) U/L Vital Signs Temp 98.6 F 05/12/18 16:13 Pulse 90 05/12/18 16:13 Resp 18 05/12/18 16:13 BP 116/55 L 05/12/18 16:14 Pulse Ox 89 L 05/12/18 16:13 Intake & Output 05/11/18 05/12/18 05/12/18 23:59 11:59 23:59 Intake Total 1360.0 / 1360.0 1920.0 / 1920.0 820 / 820 Output Total 1450 / 1450 450 / 450 250 / 250 Balance -90.0 / -90.0 1470.0 / 1470.0 570 / 570 Weight 375 lb 3.628 oz Intake: IV 1360.0 / 1360.0 1890.0 / 1890.0 790 / 790 Oral 30 / 30 30 / 30 Output: Urine 1450 / 1450 450 / 450 250 / 250 Other: Urine Color Dark Clementina Dark Clementina Dark Clementina Urine Appearance Clear Clear Urine Odor None None None Comment Void x1 in the toilet. Void x1 in the urinal. Voiding Methods Toilet Urinal Urinal Laboratory Results WBC 22.87 k/cumm (4.4-10.8) H D 05/12/18 06:35 RBC 4.39 m/cumm (4.50-6.00) L 05/12/18 06:35 Hgb 13.0 g/dL (13.5-17.5) L 05/12/18 06:35 Hct 40.6 % (40.0-50.0) 05/12/18 06:35 MCV 92.5 fL (80-95) 05/12/18 06:35 MCH 29.6 pg (27.0-33.0) 05/12/18 06:35 MCHC 32.0 g/dL (32.0-36.0) 05/12/18 06:35 RDW 13.6 % (11.8-14.1) 05/12/18 06:35 Plt Count 331 x1000/uL (130-400) 05/12/18 06:35 MPV 9.8 fL (8.0-11.0) 05/12/18 06:35 Abs Immat Gran (auto) Cancelled 05/12/18 08:55 Immature Gran % 0.2 05/12/18 06:35 Neutrophils % 89.8 05/12/18 06:35 Lymphocytes % 3.3 05/12/18 06:35 Monocytes % 6.9 05/12/18 06:35 Eosinophils % 0.0 05/12/18 06:35 Basophils % 0.0 05/12/18 06:35 Absolute Neutrophils 20.54 k/cumm (1.2-6.7) H 05/12/18 06:35 Band Neutrophils Cancelled 05/12/18 08:55 Absolute Lymphocytes 0.75 k/cumm (1.2-3.4) L 05/12/18 06:35 Absolute Monocytes 1.58 k/cumm (0.11-0.7) H 05/12/18 06:35 Absolute Eosinophils 0.00 k/cumm (0.0-0.7) 05/12/18 06:35 Absolute Basophils 0.00 k/cumm (0.0-0.2) 05/12/18 06:35 Metamyelocytes Cancelled 05/12/18 08:55 Myelocytes Cancelled 05/12/18 08:55 Promyelocytes Cancelled 05/12/18 08:55 Nucleated RBCs Cancelled 05/12/18 08:55 Differential Comment Cancelled 05/12/18 08:55 Atypical Lymphocytes Cancelled 05/12/18 08:55 Other Cell Type Cancelled 05/12/18 08:55 RBC Morphology Cancelled 05/12/18 08:55 Polychromasia Cancelled 05/12/18 08:55 Hypochromasia Cancelled 05/12/18 08:55 Poikilocytosis Cancelled 05/12/18 08:55 Basophilic Stippling Cancelled 05/12/18 08:55 Anisocytosis Cancelled 05/12/18 08:55 Microcytosis Cancelled 05/12/18 08:55 Macrocytosis Cancelled 05/12/18 08:55 Spherocytes Cancelled 05/12/18 08:55 Target Cells Cancelled 05/12/18 08:55 Tear Drop Cells Cancelled 05/12/18 08:55 Ovalocytes Cancelled 05/12/18 08:55 Stomatocytes Cancelled 05/12/18 08:55 Gerber[place] Bodies Cancelled 05/12/18 08:55 Belkis Cells Cancelled 05/12/18 08:55 Acanthocytes (Spur) Cancelled 05/12/18 08:55 Schistocytes Cancelled 05/12/18 08:55 ESR 35 MM/HR (1-20) H 05/12/18 06:35 Sodium 139 mmol/L (136-145) 05/12/18 06:35 Potassium 3.9 mmol/L (3.5-5.1) 05/12/18 06:35 Chloride 103 mmol/L (98-107) 05/12/18 06:35 Carbon Dioxide 27.9 mmol/L (21.0-32.0) 05/12/18 06:35 Anion Gap 8.1 mmol/L (3-11) 05/12/18 06:35 BUN 23 mg/dL (7-18) H 05/12/18 06:35 Creatinine 1.15 mg/dL (0.70-1.30) 05/12/18 06:35 Estimated GFR/1.73 m2 >= 60.00 (mL/min/1.73m2) 05/12/18 06:35 Glucose 187 mg/dL (70-100) H D 05/12/18 06:35 Calcium 7.8 mg/dL (8.5-10.1) L 05/12/18 06:35 Magnesium 1.7 mg/dL (1.8-2.4) L 05/12/18 06:35 Total Bilirubin 0.5 mg/dL (0.2-1.0) 05/12/18 06:35 Conjugated Bilirubin 0.28 mg/dL (0.00-0.20) H 05/11/18 09:07 AST 49 U/L (15-37) H 05/12/18 06:35 ALT 109 U/L (12-78) H 05/12/18 06:35 Alkaline Phosphatase 133 U/L (46-116) H 05/12/18 06:35 Troponin I 0.03 ng/mL (0.00-0.06) 05/11/18 09:07 C-Reactive Protein 9.31 mg/dL (0.0-0.3) H 05/12/18 06:35 Total Protein 6.7 g/dL (6.4-8.2) 05/12/18 06:35 Albumin 2.9 g/dL (3.4-5.0) L 05/12/18 06:35 Lipase 4537 U/L (73-393) H 05/12/18 06:35
[2018-05-12] MEDS: Lactated Ringers 1,000 ML 200 ML IV ×2 (17:31→22:35)
[2018-05-12] MEDS: Enoxaparin 40 MG/0.4 ML SYR SC (20:49)
[2018-05-13] VITALS (9 sets, daily range): BP systolic 100–129; BP diastolic 61–70; PULSE 92–103; RESP 18–20; TEMP 36.5–37.4; O2SAT 91–94
[2018-05-13] MEDS: Normal Saline Flush 10 ML SYR IVP ×4 (02:17→16:38)
[2018-05-13] MEDS: Lactated Ringers 1,000 ML 200 ML IV ×4 (03:01→18:46)
[2018-05-13] MEDS: Insulin Aspart 300 UNITS/3 ML PEN SC (06:02)
[2018-05-13] MEDS: ACETAMINOPHEN 1,000 MG/100 ML BTL 400 MG IVPB ×2 (06:03→18:45)
[2018-05-13 06:49] LABS: Abs Immature Grans 0.07 k/cumm (0.0-0.09); Absolute Monocyte Count 1.45 k/cumm (0.11-0.7); Basophils % 0.1; HCT 36.1 % (40.0-50.0); HGB 11.1 g/dL (13.5-17.5); Immature Grans % 0.4; Lymphocytes % 3.5; Mean Corp. HGB Concentration 30.7 g/dL (32.0-36.0); Mean Corpuscular Hemoglobin 29.2 pg (27.0-33.0); Mean Platelet Volume 9.4 fL (8.0-11.0); Monocytes % 7.3; Neutrophils % 88.7; Platelet Count 243 x1000/uL (130-400); RBC Distribution Width 13.7 % (11.8-14.1); White Blood Cell Count 19.81 k/cumm (4.4-10.8)
[2018-05-13 06:51] LABS: Absolute Basophil Count 0.02 k/cumm (0.0-0.2); Absolute Lymphocyte Count 0.69 k/cumm (1.2-3.4); Absolute Neutrophil Count 17.57 k/cumm (1.2-6.7)
[2018-05-13 07:04] LABS: ALT 59 U/L (12-78); AST 31 U/L (15-37); Albumin 2.5 g/dL (3.4-5.0); Alkaline Phosphatase 94 U/L (46-116); Anion Gap 6.2 mmol/L (3-11); BUN 32 mg/dL (7-18); Bilirubin, Total 0.6 mg/dL (0.2-1.0); CO2 28.8 mmol/L (21.0-32.0); Calcium 7.2 mg/dL (8.5-10.1); Chloride 103 mmol/L (98-107); Estimated GFR 48.41 (mL/min/1.73m2); Glucose 151 mg/dL (70-100); Magnesium 1.8 mg/dL (1.8-2.4); Sodium 138 mmol/L (136-145); Total Protein 6.3 g/dL (6.4-8.2)
[2018-05-13 07:05] LABS: Lipase 1925 U/L (73-393)
[2018-05-13] MEDS: Valsartan 80 MG TAB 320 MG PO (07:53)
[2018-05-13] MEDS: Sertraline 50 MG TAB 100 MG PO (07:53)
[2018-05-13] MEDS: amLODIPine 10 MG TAB PO (07:53)
[2018-05-13] MEDS: Metoprolol 50 MG TAB PO ×2 (07:53→19:54)
[2018-05-13] MEDS: Pantoprazole 40 MG VIAL IVP (11:54)
[2018-05-13] MEDS: Normal Saline 1,000 ML 1000 ML IV (12:40)
--- NOTE | 2018-05-13 12:46 | PGE_ITS ---
Date of service: 05/13/18 Time of Service: 12:00 Assessment and Plan (1) Acute gallstone pancreatitis: Current visit: Yes Status: Acute Lipase just below 2000 today. Pain improved. Leukocytosis has imporved No fevers Repeat labs in am If feeeling better and there are normal BS will start clear liquids Plan on outpatient Lap. Esha in 4-6 weeks unless patients pain recurrs or his pancreatitis flaires again (2) Acute renal insufficiency: Current visit: Yes Status: Acute Most likely secondary to dehydration and third spacing due to inflammation Give a fluid bolus Continue IV fluid hydration at 200 cc/hr UOP is marginal will keep an eye on it (3) Insomnia: Current visit: Yes Status: Acute Unable to sleep P\\ STart Melatonin tonight (4) Constipation: Current visit: Yes Status: Acute No BM since admission P\\ Dulcolax suppository Will start stools softener once taking PO (5) Wheezing on auscultation: Current visit: Yes Status: Acute MOst likely secondary to pain with deep breathing as well as patients obesity. No history of asthma P\\ Start albuterol and ISP Up and ambulating WIll check Chest Xray if no improvement Subjective Interval history since last seen: Mr. Luz is doing OK today. His only complaint is that he has not had a BM since his admission and that he has not really slept. His pain is better. He is wanting some fluids. Passing flatus. No new complaints Exam Const General: comfortable and no acute distress Orientation: alert and oriented x3 Resp Effort & Inspection: normal respiratory effort and audible wheezes Auscultation: clear to auscultation bilaterally, diminished lung sounds ( bilateral bases) and wheezes expiratory wheezes and left lower Cardio Jugular venous pressure: no JVD Rate: regular rate Rhythm: regular rhythm Heart Sounds: no gallops, no murmurs and no rubs GI Inspection: normal to inspection and obesity Palpation: soft and tender periumbilically; with no rebound tenderness Auscultation: hypoactive bowel sounds Objective Objective Clinical Data: Abnormal lab results 05/13/18 05/13/18 Range/Units 06:38 06:38 WBC 19.81 H (4.4-10.8) k/cumm RBC 3.80 L (4.50-6.00) m/cumm Hgb 11.1 L (13.5-17.5) g/dL Hct 36.1 L (40.0-50.0) % MCHC 30.7 L (32.0-36.0) g/dL Absolute Neutrophils 17.57 H (1.2-6.7) k/cumm Absolute Lymphocytes 0.69 L (1.2-3.4) k/cumm Absolute Monocytes 1.45 H (0.11-0.7) k/cumm BUN 32 H D (7-18) mg/dL Creatinine 1.50 H (0.70-1.30) mg/dL Glucose 151 H (70-100) mg/dL Calcium 7.2 L (8.5-10.1) mg/dL Total Protein 6.3 L (6.4-8.2) g/dL Albumin 2.5 L (3.4-5.0) g/dL Lipase 1925 H (73-393) U/L Vital Signs Temp 97.7 F 05/13/18 07:35 Pulse 103 H 05/13/18 07:45 Resp 20 05/13/18 07:35 BP 129/70 05/13/18 07:35 Pulse Ox 94 L 05/13/18 11:23 Intake & Output 05/12/18 05/13/18 05/13/18 23:59 11:59 23:59 Intake Total 2350 / 2350 3.334 / 3.334 Output Total 250 / 250 850 / 850 Balance 2099 / 2099 1173.334 / 1173.334 Intake: IV 2290 / 2290 1992.334 / 1992.334 Oral 60 / 60 30 / 30 Output: Urine 250 / 250 850 / 850 Other: Urine Color Dark Clementina Dark Clementina Urine Appearance Clear Clear Urine Odor None Comment pt states he went around 7 pm. Voiding Methods Urinal Urinal Laboratory Results WBC 19.81 k/cumm (4.4-10.8) H 05/13/18 06:38 RBC 3.80 m/cumm (4.50-6.00) L 05/13/18 06:38 Hgb 11.1 g/dL (13.5-17.5) L 05/13/18 06:38 Hct 36.1 % (40.0-50.0) L 05/13/18 06:38 MCV 95.0 fL (80-95) 05/13/18 06:38 MCH 29.2 pg (27.0-33.0) 05/13/18 06:38 MCHC 30.7 g/dL (32.0-36.0) L 05/13/18 06:38 RDW 13.7 % (11.8-14.1) 05/13/18 06:38 Plt Count 243 x1000/uL (130-400) 05/13/18 06:38 MPV 9.4 fL (8.0-11.0) 05/13/18 06:38 Abs Immat Gran (auto) Cancelled 05/12/18 08:55 Immature Gran % 0.4 05/13/18 06:38 Neutrophils % 88.7 05/13/18 06:38 Lymphocytes % 3.5 05/13/18 06:38 Monocytes % 7.3 05/13/18 06:38 Eosinophils % 0.0 05/13/18 06:38 Basophils % 0.1 05/13/18 06:38 Absolute Neutrophils 17.57 k/cumm (1.2-6.7) H 05/13/18 06:38 Band Neutrophils Cancelled 05/12/18 08:55 Absolute Lymphocytes 0.69 k/cumm (1.2-3.4) L 05/13/18 06:38 Absolute Monocytes 1.45 k/cumm (0.11-0.7) H 05/13/18 06:38 Absolute Eosinophils 0.00 k/cumm (0.0-0.7) 05/13/18 06:38 Absolute Basophils 0.02 k/cumm (0.0-0.2) 05/13/18 06:38 Metamyelocytes Cancelled 05/12/18 08:55 Myelocytes Cancelled 05/12/18 08:55 Promyelocytes Cancelled 05/12/18 08:55 Nucleated RBCs Cancelled 05/12/18 08:55 Differential Comment Cancelled 05/12/18 08:55 Atypical Lymphocytes Cancelled 05/12/18 08:55 Other Cell Type Cancelled 05/12/18 08:55 RBC Morphology Cancelled 05/12/18 08:55 Polychromasia Cancelled 05/12/18 08:55 Hypochromasia Cancelled 05/12/18 08:55 Poikilocytosis Cancelled 05/12/18 08:55 Basophilic Stippling Cancelled 05/12/18 08:55 Anisocytosis Cancelled 05/12/18 08:55 Microcytosis Cancelled 05/12/18 08:55 Macrocytosis Cancelled 05/12/18 08:55 Spherocytes Cancelled 05/12/18 08:55 Target Cells Cancelled 05/12/18 08:55 Tear Drop Cells Cancelled 05/12/18 08:55 Ovalocytes Cancelled 05/12/18 08:55 Stomatocytes Cancelled 05/12/18 08:55 Ger[place] Bodies Cancelled 05/12/18 08:55 [place] Cells Cancelled 05/12/18 08:55 Acanthocytes (Spur) Cancelled 05/12/18 08:55 Schistocytes Cancelled 05/12/18 08:55 ESR 35 MM/HR (1-20) H 05/12/18 06:35 Sodium 138 mmol/L (136-145) 05/13/18 06:38 Potassium 4.0 mmol/L (3.5-5.1) 05/13/18 06:38 Chloride 103 mmol/L (98-107) 05/13/18 06:38 Carbon Dioxide 28.8 mmol/L (21.0-32.0) 05/13/18 06:38 Anion Gap 6.2 mmol/L (3-11) 05/13/18 06:38 BUN 32 mg/dL (7-18) H D 05/13/18 06:38 Creatinine 1.50 mg/dL (0.70-1.30) H 05/13/18 06:38 Estimated GFR/1.73 m2 48.41 (mL/min/1.73m2) 05/13/18 06:38 Glucose 151 mg/dL (70-100) H 05/13/18 06:38 Calcium 7.2 mg/dL (8.5-10.1) L 05/13/18 06:38 Magnesium 1.8 mg/dL (1.8-2.4) 05/13/18 06:38 Total Bilirubin 0.6 mg/dL (0.2-1.0) 05/13/18 06:38 Conjugated Bilirubin 0.28 mg/dL (0.00-0.20) H 05/11/18 09:07 AST 31 U/L (15-37) 05/13/18 06:38 ALT 59 U/L (12-78) 05/13/18 06:38 Alkaline Phosphatase 94 U/L (46-116) 05/13/18 06:38 Troponin I 0.03 ng/mL (0.00-0.06) 05/11/18 09:07 C-Reactive Protein 9.31 mg/dL (0.0-0.3) H 05/12/18 06:35 Total Protein 6.3 g/dL (6.4-8.2) L 05/13/18 06:38 Albumin 2.5 g/dL (3.4-5.0) L 05/13/18 06:38 Lipase 1925 U/L (73-393) H 05/13/18 06:38
--- NOTE | 2018-05-13 14:03 | PDOC.CMPRO ---
Care Management Progress Note S/O: Terry was sleeping soundly when CM attempted to meet with him in the morning. Per MD, he is improving clinically, though had not yet had a BM. He continues to be monitored at this time. A: 57 year old male admitted to [facility] 05/11/18 with Acute Gallstone Pancreatitis, Transminitis P: Terry will return home when ready per MD. CM will continue to monitor clinical progress and support discharge planning considerations. Terry will transport via private vehicle with his , Autumn.
--- NOTE | 2018-05-13 14:09 | CMPROGNOTE_ITS ---
Care Management Progress Note S/O: Terry was sleeping soundly when CM attempted to meet with him in the morning. Per MD, he is improving clinically, though had not yet had a BM. He continues to be monitored at this time. A: 57 year old male admitted to [facility] 05/11/18 with Acute Gallstone Pancreatitis, Transminitis P: Terry will return home when ready per MD. CM will continue to monitor clinical progress and support discharge planning considerations. Terry will transport via private vehicle with his , Autumn.
[2018-05-13] MEDS: Bisacodyl 10 MG SUPP PR (16:46)
[2018-05-13] MEDS: Enoxaparin 40 MG/0.4 ML SYR SC (19:53)
[2018-05-13] MEDS: Melatonin 3 MG TAB 6 MG PO (21:34)
[2018-05-14] VITALS (8 sets, daily range): BP systolic 124–151; BP diastolic 70–78; PULSE 101–115; RESP 19–20; TEMP 37.3–38; O2SAT 90–95
[2018-05-14] MEDS: Lactated Ringers 1,000 ML 200 ML IV ×2 (00:08→04:40)
[2018-05-14] MEDS: ACETAMINOPHEN 1,000 MG/100 ML BTL 400 MG IVPB (01:07)
[2018-05-14 07:08] LABS: ALT 44 U/L (12-78); AST 31 U/L (15-37); Abs Immature Grans 0.05 k/cumm (0.0-0.09); Absolute Lymphocyte Count 0.69 k/cumm (1.2-3.4); Absolute Monocyte Count 0.94 k/cumm (0.11-0.7); Absolute Neutrophil Count 13.67 k/cumm (1.2-6.7); Albumin 2.3 g/dL (3.4-5.0); Alkaline Phosphatase 84 U/L (46-116); Anion Gap 6.6 mmol/L (3-11); BUN 21 mg/dL (7-18); Bilirubin, Total 0.7 mg/dL (0.2-1.0); CO2 30.4 mmol/L (21.0-32.0); CREATININE 0.99 mg/dL (0.70-1.30); Calcium 7.3 mg/dL (8.5-10.1); Chloride 103 mmol/L (98-107); Eosinophils % 0.1; Glucose 136 mg/dL (70-100); HCT 34.7 % (40.0-50.0); HGB 10.6 g/dL (13.5-17.5); Immature Grans % 0.3; Lipase 593 U/L (73-393); Lymphocytes % 4.5; Mean Corp. HGB Concentration 30.5 g/dL (32.0-36.0); Mean Corpuscular Volume 95.1 fL (80-95); Mean Platelet Volume 9.6 fL (8.0-11.0); Monocytes % 6.1; Platelet Count 257 x1000/uL (130-400); Potassium 3.7 mmol/L (3.5-5.1); RBC 3.65 m/cumm (4.50-6.00); RBC Distribution Width 13.5 % (11.8-14.1); Sodium 140 mmol/L (136-145); Total Protein 6.3 g/dL (6.4-8.2); White Blood Cell Count 15.36 k/cumm (4.4-10.8)
[2018-05-14 07:12] LABS: Absolute Eosinophil Count 0.02 k/cumm (0.0-0.7)
[2018-05-14] MEDS: Normal Saline Flush 10 ML SYR IVP ×3 (08:35→17:14)
[2018-05-14] MEDS: amLODIPine 10 MG TAB PO (08:36)
[2018-05-14] MEDS: Metoprolol 50 MG TAB PO ×2 (08:36→19:50)
[2018-05-14] MEDS: Valsartan 80 MG TAB 320 MG PO (08:36)
[2018-05-14] MEDS: Sertraline 50 MG TAB 100 MG PO (08:37)
--- NOTE | 2018-05-14 09:11 | W.PM.PROGNOT ---
Date of service: 05/14/18 Assessment and Plan (1) Wheezing on auscultation: Current visit: Yes Status: Acute Respiratory consult ordered evaluation and treatment. Continue with albuterol treatments. Encouraged ambulation and sitting upright in the chair. Continue use of Incentive Spirometer. Will order chest XR if sxs continue (2) Acute renal insufficiency: Current visit: Yes Status: Acute Kidney function has improved continue with IV fluids. (3) Acute gallstone pancreatitis: Current visit: Yes Status: Acute (4) Insomnia: Current visit: Yes Status: Acute Encourage ambulation and getting into the chair during the day. Continue use of Melatonin. (5) Back pain: Current visit: Yes Status: Acute Most likely due to patient's obesity and decreased activity. Physical Therapy consult ordered for evaluation and treatment. Encourage ambulation and sitting upright in the chair. (6) Constipation: Current visit: Yes Status: Acute Dulcolax suppository given. No results Start Miralax 1-2 times per day as needed for constipation If no results will give Mag Citrate Subjective Interval history since last seen: Patient reports that his abdominal pain improved. With complaints of nausea that started yesterday and has continued through this morning. He continues to complain of poor sleep which did not improve with the use of Melatonin last night and progressive worsening of back pain that has been minimally relived with use of a heating pad and position changes. NO Vomiting. Passing flatus. Exam Const General: cooperative and no acute distress Orientation: alert and awake Resp Effort & Inspection: normal respiratory effort and audible wheezes (While in Supine > sitting upright) Auscultation: no crackles, no rhonchi and wheezes Cardio Rate: regular rate Rhythm: regular rhythm Heart Sounds: no click, no gallops, no murmurs and no rubs GI Palpation: soft and tender (left flank) Auscultation: normal bowel sounds Objective Objective Clinical Data: Abnormal lab results 05/14/18 05/14/18 Range/Units 06:40 06:40 WBC 15.36 H (4.4-10.8) k/cumm RBC 3.65 L (4.50-6.00) m/cumm Hgb 10.6 L (13.5-17.5) g/dL Hct 34.7 L (40.0-50.0) % MCV 95.1 H (80-95) fL MCHC 30.5 L (32.0-36.0) g/dL Absolute Neutrophils 13.67 H (1.2-6.7) k/cumm Absolute Lymphocytes 0.69 L (1.2-3.4) k/cumm Absolute Monocytes 0.94 H (0.11-0.7) k/cumm BUN 21 H D (7-18) mg/dL Glucose 136 H (70-100) mg/dL Calcium 7.3 L (8.5-10.1) mg/dL Total Protein 6.3 L (6.4-8.2) g/dL Albumin 2.3 L (3.4-5.0) g/dL Lipase 593 H (73-393) U/L Vital Signs Temp 99.1 F 05/14/18 07:25 Pulse 108 H 05/14/18 08:39 Resp 20 05/14/18 07:25 BP 137/73 05/14/18 07:25 Pulse Ox 90 L 05/14/18 08:55 Intake & Output 05/13/18 05/13/18 05/14/18 11:59 23:59 11:59 Intake Total 2022.334 / 3.334 1959 1886.667 / 1886.667 Output Total 1100 / 1100 450 / 450 200 / 200 Balance 923.334 / 834.169 1752 / 1510 1686.667 / 1686.667 Intake: IV 1992.334 / 9092.846 6439 / 1960 1886.667 / 1886.667 Oral 30 / 30 Output: Urine 1100 / 1100 450 / 450 200 / 200 Other: Urine Color Dark Clementina Dark Clementina Dark Clementina Urine Appearance Clear Clear Clear Voiding Methods Urinal Urinal Laboratory Results WBC 15.36 k/cumm (4.4-10.8) H 05/14/18 06:40 RBC 3.65 m/cumm (4.50-6.00) L 05/14/18 06:40 Hgb 10.6 g/dL (13.5-17.5) L 05/14/18 06:40 Hct 34.7 % (40.0-50.0) L 05/14/18 06:40 MCV 95.1 fL (80-95) H 05/14/18 06:40 MCH 29.0 pg (27.0-33.0) 05/14/18 06:40 MCHC 30.5 g/dL (32.0-36.0) L 05/14/18 06:40 RDW 13.5 % (11.8-14.1) 05/14/18 06:40 Plt Count 257 x1000/uL (130-400) 05/14/18 06:40 MPV 9.6 fL (8.0-11.0) 05/14/18 06:40 Abs Immat Gran (auto) Cancelled 05/12/18 08:55 Immature Gran % 0.3 05/14/18 06:40 Neutrophils % 89.0 05/14/18 06:40 Lymphocytes % 4.5 05/14/18 06:40 Monocytes % 6.1 05/14/18 06:40 Eosinophils % 0.1 05/14/18 06:40 Basophils % 0.0 05/14/18 06:40 Absolute Neutrophils 13.67 k/cumm (1.2-6.7) H 05/14/18 06:40 Band Neutrophils Cancelled 05/12/18 08:55 Absolute Lymphocytes 0.69 k/cumm (1.2-3.4) L 05/14/18 06:40 Absolute Monocytes 0.94 k/cumm (0.11-0.7) H 05/14/18 06:40 Absolute Eosinophils 0.02 k/cumm (0.0-0.7) 05/14/18 06:40 Absolute Basophils 0.00 k/cumm (0.0-0.2) 05/14/18 06:40 Metamyelocytes Cancelled 05/12/18 08:55 Myelocytes Cancelled 05/12/18 08:55 Promyelocytes Cancelled 05/12/18 08:55 Nucleated RBCs Cancelled 05/12/18 08:55 Differential Comment Cancelled 05/12/18 08:55 Atypical Lymphocytes Cancelled 05/12/18 08:55 Other Cell Type Cancelled 05/12/18 08:55 RBC Morphology Cancelled 05/12/18 08:55 Polychromasia Cancelled 05/12/18 08:55 Hypochromasia Cancelled 05/12/18 08:55 Poikilocytosis Cancelled 05/12/18 08:55 Basophilic Stippling Cancelled 05/12/18 08:55 Anisocytosis Cancelled 05/12/18 08:55 Microcytosis Cancelled 05/12/18 08:55 Macrocytosis Cancelled 05/12/18 08:55 Spherocytes Cancelled 05/12/18 08:55 Target Cells Cancelled 05/12/18 08:55 Tear Drop Cells Cancelled 05/12/18 08:55 Ovalocytes Cancelled 05/12/18 08:55 Stomatocytes Cancelled 05/12/18 08:55 Gerber-Leupp Bodies Cancelled 05/12/18 08:55 [place] Cells Cancelled 05/12/18 08:55 Acanthocytes (Spur) Cancelled 05/12/18 08:55 Schistocytes Cancelled 05/12/18 08:55 ESR 35 MM/HR (1-20) H 05/12/18 06:35 Sodium 140 mmol/L (136-145) 05/14/18 06:40 Potassium 3.7 mmol/L (3.5-5.1) 05/14/18 06:40 Chloride 103 mmol/L (98-107) 05/14/18 06:40 Carbon Dioxide 30.4 mmol/L (21.0-32.0) 05/14/18 06:40 Anion Gap 6.6 mmol/L (3-11) 05/14/18 06:40 BUN 21 mg/dL (7-18) H D 05/14/18 06:40 Creatinine 0.99 mg/dL (0.70-1.30) D 05/14/18 06:40 Estimated GFR/1.73 m2 >= 60.00 (mL/min/1.73m2) 05/14/18 06:40 Glucose 136 mg/dL (70-100) H 05/14/18 06:40 Calcium 7.3 mg/dL (8.5-10.1) L 05/14/18 06:40 Magnesium 1.8 mg/dL (1.8-2.4) 05/13/18 06:38 Total Bilirubin 0.7 mg/dL (0.2-1.0) 05/14/18 06:40 Conjugated Bilirubin 0.28 mg/dL (0.00-0.20) H 05/11/18 09:07 AST 31 U/L (15-37) 05/14/18 06:40 ALT 44 U/L (12-78) 05/14/18 06:40 Alkaline Phosphatase 84 U/L (46-116) 05/14/18 06:40 Troponin I 0.03 ng/mL (0.00-0.06) 05/11/18 09:07 C-Reactive Protein 9.31 mg/dL (0.0-0.3) H 05/12/18 06:35 Total Protein 6.3 g/dL (6.4-8.2) L 05/14/18 06:40 Albumin 2.3 g/dL (3.4-5.0) L 05/14/18 06:40 Lipase 593 U/L (73-393) H 05/14/18 06:40
--- NOTE | 2018-05-14 09:38 | PT.INNT ---
Date of service: 05/14/18 Time of Service: 09:38 PT Notes PHYSICAL THERAPY NOTE 05/14/18 PT Consult received, chart reviewed, attempted to see patient for evaluation, pt out of room at testing. Liya Whitman PT
[2018-05-14] MEDS: Acetaminophen 325 MG TAB 650 MG PO ×2 (10:11→19:50)
--- NOTE | 2018-05-14 10:55 | PT.INIE ---
Date of service: 05/14/18 Time of Service: 10:53 PT Notes Inpatient Physical Therapy Evaluation Date: 05/14/18 Referring Doctor: Fozia Medina PT Orders: PT CONSULT: deconditioning needs to be up and walking Precautions: Log Roll for bed transfers Patient Profile/Admitting Diagnosis: Pt is a 57yr old male admitted with gallstone pancreatitis and acute renal insufficiency PMHX: obesity, diabetes mellitus II, hypertension, hyperlipidemia, insomnia, depression, lipoma neck, tonsillectomy Social History/Home Situation: Lives with in a house, 5 steps with railing to enter, a couple steps inside home. Baseline mobility independent gait with no device, independent with ADLS Equipment Owned/DME: none Subjective: Pt lying in bed visiting with in room, agreeable to PT Consult. States he has had back pain since admission, reports it to be mid back, he states he feels like it is muscular due to sleeping on an uncomfortable bed. Bed has been changed and pt provided with a trapeze for position adjustment. Pt has been using K-pad and reports pain reduction with that, is also taking Tylenol. He reports no radiating pain, no sciatica, no loss of muscle strength, just localized muscular pain in thoracic and lumbar regions. He states the pain does not increase with changes of position such as sitting or standing, stays about the same. Objective: General Observation: 1 liter 0 NC for sleeping, removes with activity, IV R UE, telemtry Mental Status: A&O X3 Pain: mild pain reported at start of session thoracic/lumbar paraspinals, after manual the Palpation: Pt tender and tight to palpation thoracic and lumbar paraspinals. ROM: Right Upper Extremity: AROM WNL Left Upper Extremity: AROM WNL Right Lower Extremity: AROM hip flexion 100, knee and ankle WNL Left Lower Extremity: AROM hip flexion 100, knee and ankle WNL Strength: Right Upper Extremity: 5/5 throughout Left Upper Extremity: 5/5 throughout Right Lower Extremity: 5/5 throughout Left Lower Extremity: 5/5 throughout Bed Mobility/Transfers: Supine-sit: HOB 30 degrees, assist by Sit-stand: independent Stand-sit: independent Sit-supine: independent. Pt instructed in use of overhead trapeze for position adjustments in bed Gait: independent gait with no device 200ft, step through gait pattern, steady stride and jacquelin. Back pain not affecting mobility Stairs: Performed up/down 5 steps with railing independent, step over step sequence Balance: Static Sitting: normal Dynamic Sitting: normal Static Standing: good Dynamic Standing: good Special Tests: Mobility Limitations Standardized Measure [facility] AM-PAC 6 clicks Basic Mobility Inpatient Short Form: Raw Score: 21 Standardized Score: 50.25 CMS Score: 28.97% CMS Modifier: CJ Informed Consent/Education: Patient instructed in purpose of PT consult and plan of care. Assessment: Pt is a 57yr old male admitted with gallstone pancreatitis and acute renal insufficiency in setting of obesity, diabetes mellitus II. Patient presents with clinical signs and symptoms consistent with muscular tightness thoracic and lumbar region due to immobility and sleeping positions in hospital bed, as demonstrated by the following impairment level findings: tenderness to palpation thoracic and lumbar regions affecting his bed mobility, responded well to manual therapy for soft tissue release, use of K-pad and pain medication provided by nursing. Pt was issued and instructed in gentle back stretches, lower extremity strengthening exercises. Pt is independent with mobility, discussed with nursing a 3x/day walking schedule in hallway for patient to perform with or DIRECTOR OF ATHLETICS. Pt is not in need of skilled therapy services at this time, recommend nursing mobilize 3x/day in hallways, continue use of k-pad and begin gentle stretches and strengthening program. Home discharge is the plan. Impairments are contributing to the following functional limitations: AMPAC score CMS Score: 28.97% Patient is assessed as a Low 49769 complexity based on the following: History: see pmhx Examination: back, see functional levels above Presentation: stable Decision Making: AMPAC score CMS Score: 28.97% Goals: not applicable Plan of Care/Treatment Plan: PT eval only DISCHARGE RECOMMENDATIONS: Home with home stretching and exercise program, no DME TREATMENT CODE/TIME: 25min IE 10:53 G Codes in the area mobility of walking and moving around: current status [id number] []; projected status GP [id number]-[]. Discharge status (if discharging) GP [id number] based on AMPAC score CMS Score: 28.97% Liya Whitman PT
--- NOTE | 2018-05-14 11:04 | IN_ITS ---
Date of service: 05/14/18 Time of Service: 10:53 PT Notes Inpatient Physical Therapy Evaluation Date: 05/14/18 Referring Doctor: Fozia Medina PT Orders: PT CONSULT: deconditioning needs to be up and walking Precautions: Log Roll for bed transfers Patient Profile/Admitting Diagnosis: Pt is a 57yr old male admitted with gallstone pancreatitis and acute renal insufficiency PMHX: obesity, diabetes mellitus II, hypertension, hyperlipidemia, insomnia, depression, lipoma neck, tonsillectomy Social History/Home Situation: Lives with in a house, 5 steps with railing to enter, a couple steps inside home. Baseline mobility independent gait with no device, independent with ADLS Equipment Owned/DME: none Subjective: Pt lying in bed visiting with in room, agreeable to PT Consult. States he has had back pain since admission, reports it to be mid back , he states he feels like it is muscular due to sleeping on an uncomfortable bed. Bed has been changed and pt provided with a trapeze for position adjustment. Pt has been using K-pad and reports pain reduction with that, is also taking Tylenol. He reports no radiating pain, no sciatica, no loss of muscle strength, just localized muscular pain in thoracic and lumbar regions. He states the pain does not increase with changes of position such as sitting or standing, stays about the same. Objective: General Observation: 1 liter 0 NC for sleeping, removes with activity, IV R UE, telemtry Mental Status: A&O X3 Pain: mild pain reported at start of session thoracic/lumbar paraspinals, after manual the Palpation: Pt tender and tight to palpation thoracic and lumbar paraspinals. ROM: Right Upper Extremity: AROM WNL Left Upper Extremity: AROM WNL Right Lower Extremity: AROM hip flexion 100, knee and ankle WNL Left Lower Extremity: AROM hip flexion 100, knee and ankle WNL Strength: Right Upper Extremity: 5/5 throughout Left Upper Extremity: 5/5 throughout Right Lower Extremity: 5/5 throughout Left Lower Extremity: 5/5 throughout Bed Mobility/Transfers: Supine-sit: HOB 30 degrees, assist by Sit-stand: independent Stand-sit: independent Sit-supine: independent. Pt instructed in use of overhead trapeze for position adjustments in bed Gait: independent gait with no device 200ft, step through gait pattern, steady stride and jacquelin. Back pain not affecting mobility Stairs: Performed up/down 5 steps with railing independent, step over step sequence Balance: Static Sitting: normal Dynamic Sitting: normal Static Standing: good Dynamic Standing: good Special Tests: Mobility Limitations Standardized Measure [facility] AM-PAC 6 clicks Basic Mobility Inpatient Short Form: Raw Score: 21 Standardized Score: 50.25 CMS Score: 28.97% CMS Modifier: CJ Informed Consent/Education: Patient instructed in purpose of PT consult and plan of care. Assessment: Pt is a 57yr old male admitted with gallstone pancreatitis and acute renal insufficiency in setting of obesity, diabetes mellitus II. Patient presents with clinical signs and symptoms consistent with muscular tightness thoracic and lumbar region due to immobility and sleeping positions in hospital bed, as demonstrated by the following impairment level findings: tenderness to palpation thoracic and lumbar regions affecting his bed mobility, responded well to manual therapy for soft tissue release, use of K-pad and pain medication provided by nursing. Pt was issued and instructed in gentle back stretches, lower extremity strengthening exercises. Pt is independent with mobility, discussed with nursing a 3x/day walking schedule in hallway for patient to perform with or SECURITY SCREENER. Pt is not in need of skilled therapy services at this time, recommend nursing mobilize 3x/day in hallways, continue use of k-pad and begin gentle stretches and strengthening program. Home discharge is the plan. Impairments are contributing to the following functional limitations: AMPAC score CMS Score: 28.97% Patient is assessed as a Low 67977 complexity based on the following: History: see pmhx Examination: back, see functional levels above Presentation: stable Decision Making: AMPAC score CMS Score: 28.97% Goals: not applicable Plan of Care/Treatment Plan: PT eval only DISCHARGE RECOMMENDATIONS: Home with home stretching and exercise program, no DME TREATMENT CODE/TIME: 25min IE 10:53 G Codes in the area mobility of walking and moving around: current status [id number] []; projected status GP [id number]-[]. Discharge status (if discharging) GP [id number] based on AMPAC score CMS Score: 28.97% Liya Whitman PT
[2018-05-14] MEDS: Albuterol 2.5 MG/3 ML INH SOLN VIAL UPD (11:11)
[2018-05-14] MEDS: Lactated Ringers 1,000 ML 30 ML IV (11:55)
[2018-05-14] MEDS: Pantoprazole 40 MG VIAL IVP (12:08)
[2018-05-14] MEDS: Polyethylene Glycol 3350 17 GM PACKET PO (12:08)
--- NOTE | 2018-05-14 13:53 | PDOC.CMPRO ---
- If Service Date Differs Date of service: 05/14/18 Time of Service: 13:53 Care Management Progress Note S/O: Terry is lying in bed this morning resting when this specification writer visits. This afternoon his bed was exchanged as he has been having some back pain. Terry also worked with physical therapy today as the physician would like him to ambulate more. A: 57 year old male admitted to [facility] 05/11/18 with Acute Gallstone Pancreatitis, Transminitis P: Terry will return home when ready per MD. CM will continue to monitor clinical progress and support discharge planning considerations. Terry will transport via private vehicle with his , Autumn.
--- NOTE | 2018-05-14 13:56 | CMPROGNOTE_ITS ---
- If Service Date Differs Date of service: 05/14/18 Time of Service: 13:53 Care Management Progress Note S/O: Terry is lying in bed this morning resting when this health technical writer visits. This afternoon his bed was exchanged as he has been having some back pain. Terry also worked with physical therapy today as the physician would like him to ambulate more. A: 57 year old male admitted to [facility] 05/11/18 with Acute Gallstone Pancreatitis, Transminitis P: Terry will return home when ready per MD. CM will continue to monitor clinical progress and support discharge planning considerations. Terry will transport via private vehicle with his , Autumn.
--- NOTE | 2018-05-14 16:23 | DM INPTCON_ITS ---
DESCRIPTION/ASSESSMENT: Appreciate diabetes consult for Mr. Luz who is hospitalized with pancreatitis. BMI 50 No A1c seen in [facility]. Blood sugars have improved since admission now below 140 today without correction insulin. He started eating today without identification of carbohydrate intake. He manages diabetes with Metformin at home. INTERVENTION: No intervention identified at this time. Suggest A1c if current result is not available. PLAN: Will follow blood sugars Suggest A1c be tested if not available
--- NOTE | 2018-05-14 16:42 | W.PM.PROGNOT ---
Date of service: 05/14/18 Time of Service: 16:00 Assessment and Plan (1) Acute gallstone pancreatitis: Current visit: Yes Status: Acute Lipase just below 2000 today. Pain improved. Leukocytosis has improved No fevers Repeat labs in am Tolerated a clear liquid diet for breakfast and lunch. Will advance diet to regular low fat/Diabetic Plan on outpatient Lap. Esha in 4-6 weeks unless patients pain recurs or his pancreatitis flares again (2) Acute renal insufficiency: Current visit: Yes Status: Acute Resolved. Cr is normal today (3) Insomnia: Current visit: Yes Status: Acute Still with difficulty sleeping. Melatonin did not seem to help much D/C fluids. Make Vitals Q6 Try Benadryl po for sleep (4) Constipation: Current visit: Yes Status: Acute Small BM today. Start Miralax daily. Add laxative as needed (5) Wheezing on auscultation: Current visit: Yes Status: Acute Still wheezing. Had an albuteral updraft today. Needs to get up and ambulate more. Will give a little lasix If no improvement then will check a chest Xray tomorrow Subjective Interval history since last seen: New new complaints. Feels tired. Feels short of breath, maybe a bit better then this am. He did have a treatment with albuterol. Has had a small BM and is passing some flatus Objective Objective Clinical Data: Abnormal lab results 05/14/18 05/14/18 Range/Units 06:40 06:40 WBC 15.36 H (4.4-10.8) k/cumm RBC 3.65 L (4.50-6.00) m/cumm Hgb 10.6 L (13.5-17.5) g/dL Hct 34.7 L (40.0-50.0) % MCV 95.1 H (80-95) fL MCHC 30.5 L (32.0-36.0) g/dL Absolute Neutrophils 13.67 H (1.2-6.7) k/cumm Absolute Lymphocytes 0.69 L (1.2-3.4) k/cumm Absolute Monocytes 0.94 H (0.11-0.7) k/cumm BUN 21 H D (7-18) mg/dL Glucose 136 H (70-100) mg/dL Calcium 7.3 L (8.5-10.1) mg/dL Total Protein 6.3 L (6.4-8.2) g/dL Albumin 2.3 L (3.4-5.0) g/dL Lipase 593 H (73-393) U/L Vital Signs Temp 100.0 F H 05/14/18 15:56 Pulse 105 H 05/14/18 15:56 Resp 20 05/14/18 15:56 BP 136/78 05/14/18 15:56 Pulse Ox 94 L 05/14/18 15:56 Intake & Output 05/13/18 05/14/18 05/14/18 23:59 11:59 23:59 Intake Total 1959 3996.667 / 3996.667 Output Total 450 / 450 500 / 500 Balance 1510 / 1510 3496.667 / 3496.667 Intake: IV 1959 3756.667 / 3756.667 Oral 240 / 240 Output: Urine 450 / 450 500 / 500 Other: Urine Color Dark Clementina Dark Clementina Urine Appearance Clear Clear Comment voided into toilet-enc to use urinal voided into toilet-enc to use urinal Voiding Methods Urinal Toilet Toilet Laboratory Results WBC 15.36 k/cumm (4.4-10.8) H 05/14/18 06:40 RBC 3.65 m/cumm (4.50-6.00) L 05/14/18 06:40 Hgb 10.6 g/dL (13.5-17.5) L 05/14/18 06:40 Hct 34.7 % (40.0-50.0) L 05/14/18 06:40 MCV 95.1 fL (80-95) H 05/14/18 06:40 MCH 29.0 pg (27.0-33.0) 05/14/18 06:40 MCHC 30.5 g/dL (32.0-36.0) L 05/14/18 06:40 RDW 13.5 % (11.8-14.1) 05/14/18 06:40 Plt Count 257 x1000/uL (130-400) 05/14/18 06:40 MPV 9.6 fL (8.0-11.0) 05/14/18 06:40 Abs Immat Gran (auto) Cancelled 05/12/18 08:55 Immature Gran % 0.3 05/14/18 06:40 Neutrophils % 89.0 05/14/18 06:40 Lymphocytes % 4.5 05/14/18 06:40 Monocytes % 6.1 05/14/18 06:40 Eosinophils % 0.1 05/14/18 06:40 Basophils % 0.0 05/14/18 06:40 Absolute Neutrophils 13.67 k/cumm (1.2-6.7) H 05/14/18 06:40 Band Neutrophils Cancelled 05/12/18 08:55 Absolute Lymphocytes 0.69 k/cumm (1.2-3.4) L 05/14/18 06:40 Absolute Monocytes 0.94 k/cumm (0.11-0.7) H 05/14/18 06:40 Absolute Eosinophils 0.02 k/cumm (0.0-0.7) 05/14/18 06:40 Absolute Basophils 0.00 k/cumm (0.0-0.2) 05/14/18 06:40 Metamyelocytes Cancelled 05/12/18 08:55 Myelocytes Cancelled 05/12/18 08:55 Promyelocytes Cancelled 05/12/18 08:55 Nucleated RBCs Cancelled 05/12/18 08:55 Differential Comment Cancelled 05/12/18 08:55 Atypical Lymphocytes Cancelled 05/12/18 08:55 Other Cell Type Cancelled 05/12/18 08:55 RBC Morphology Cancelled 05/12/18 08:55 Polychromasia Cancelled 05/12/18 08:55 Hypochromasia Cancelled 05/12/18 08:55 Poikilocytosis Cancelled 05/12/18 08:55 Basophilic Stippling Cancelled 05/12/18 08:55 Anisocytosis Cancelled 05/12/18 08:55 Microcytosis Cancelled 05/12/18 08:55 Macrocytosis Cancelled 05/12/18 08:55 Spherocytes Cancelled 05/12/18 08:55 Target Cells Cancelled 05/12/18 08:55 Tear Drop Cells Cancelled 05/12/18 08:55 Ovalocytes Cancelled 05/12/18 08:55 Stomatocytes Cancelled 05/12/18 08:55 Gerber-Bone Gap Bodies Cancelled 05/12/18 08:55 [place] Cells Cancelled 05/12/18 08:55 Acanthocytes (Spur) Cancelled 05/12/18 08:55 Schistocytes Cancelled 05/12/18 08:55 ESR 35 MM/HR (1-20) H 05/12/18 06:35 Sodium 140 mmol/L (136-145) 05/14/18 06:40 Potassium 3.7 mmol/L (3.5-5.1) 05/14/18 06:40 Chloride 103 mmol/L (98-107) 05/14/18 06:40 Carbon Dioxide 30.4 mmol/L (21.0-32.0) 05/14/18 06:40 Anion Gap 6.6 mmol/L (3-11) 05/14/18 06:40 BUN 21 mg/dL (7-18) H D 05/14/18 06:40 Creatinine 0.99 mg/dL (0.70-1.30) D 05/14/18 06:40 Estimated GFR/1.73 m2 >= 60.00 (mL/min/1.73m2) 05/14/18 06:40 Glucose 136 mg/dL (70-100) H 05/14/18 06:40 Calcium 7.3 mg/dL (8.5-10.1) L 05/14/18 06:40 Magnesium 1.8 mg/dL (1.8-2.4) 05/13/18 06:38 Total Bilirubin 0.7 mg/dL (0.2-1.0) 05/14/18 06:40 Conjugated Bilirubin 0.28 mg/dL (0.00-0.20) H 05/11/18 09:07 AST 31 U/L (15-37) 05/14/18 06:40 ALT 44 U/L (12-78) 05/14/18 06:40 Alkaline Phosphatase 84 U/L (46-116) 05/14/18 06:40 Troponin I 0.03 ng/mL (0.00-0.06) 05/11/18 09:07 C-Reactive Protein 9.31 mg/dL (0.0-0.3) H 05/12/18 06:35 Total Protein 6.3 g/dL (6.4-8.2) L 05/14/18 06:40 Albumin 2.3 g/dL (3.4-5.0) L 05/14/18 06:40 Lipase 593 U/L (73-393) H 05/14/18 06:40
[2018-05-14] MEDS: Furosemide 20 MG/2 ML VIAL IVP (17:14)
[2018-05-14] MEDS: Insulin Aspart 300 UNITS/3 ML PEN SC (17:15)
[2018-05-14] MEDS: Enoxaparin 40 MG/0.4 ML SYR SC (19:50)
[2018-05-14] MEDS: Melatonin 3 MG TAB 6 MG PO (22:34)
[2018-05-15] MEDS: Normal Saline Flush 10 ML SYR IVP (04:55)
[2018-05-15 07:17] VITALS: PULSE 107
[2018-05-15 07:24] LABS: Abs Immature Grans 0.05 k/cumm (0.0-0.09); Absolute Eosinophil Count 0.02 k/cumm (0.0-0.7); Absolute Lymphocyte Count 0.88 k/cumm (1.2-3.4); Absolute Monocyte Count 1.06 k/cumm (0.11-0.7); Basophils % 0.1; Eosinophils % 0.1; HCT 33.1 % (40.0-50.0); HGB 10.2 g/dL (13.5-17.5); Immature Grans % 0.3; Lymphocytes % 5.4; Mean Corp. HGB Concentration 30.8 g/dL (32.0-36.0); Mean Platelet Volume 9.4 fL (8.0-11.0); Monocytes % 6.5; Neutrophils % 87.6; Platelet Count 325 x1000/uL (130-400); RBC 3.52 m/cumm (4.50-6.00); RBC Distribution Width 13.5 % (11.8-14.1); White Blood Cell Count 16.32 k/cumm (4.4-10.8)
[2018-05-15 07:27] LABS: Absolute Basophil Count 0.02 k/cumm (0.0-0.2)
[2018-05-15 07:30] VITALS: BP 116/82; PULSE 106; RESP 20; TEMP 37.2; O2SAT 96
[2018-05-15 07:30] LABS: Anion Gap 9.1 mmol/L (3-11); BUN 14 mg/dL (7-18); CO2 27.9 mmol/L (21.0-32.0); CREATININE 0.83 mg/dL (0.70-1.30); Calcium 7.8 mg/dL (8.5-10.1); Chloride 101 mmol/L (98-107); Glucose 141 mg/dL (70-100); Lipase 270 U/L (73-393); Potassium 3.2 mmol/L (3.5-5.1); Sodium 138 mmol/L (136-145)
--- NOTE | 2018-05-15 08:45 | DI.RAD_ITS ---
SYMPTOM/DIAGNOSIS: LOW SATS, LEUKOCYTOSIS PA AND LATERAL CHEST: Comparison is made with 05/11/18. The heart is enlarged, unchanged. A hiatal hernia is again noted. There is now a small left pleural effusion and tiny right pleural effusion. The lungs are otherwise clear. No infiltrate is seen. IMPRESSION: Small bilateral pleural effusions, left greater than right.
--- NOTE | 2018-05-15 09:17 | PGE_ITS ---
Documented by User: FLORINA Clark 05/15/18 09:17 Date of service: 05/15/18 Assessment and Plan (1) Acute gallstone pancreatitis: Current visit: Yes Status: Acute Lipase 270 today. Pain improved. Leukocytosis Low grade temps in the evening. Repeat labs in am Plan on outpatient Lap. Esha in 4-6 weeks unless patients pain recurs or his pancreatitis flares again (2) Insomnia: Current visit: Yes Status: Acute Unable to sleep P// Continue melatonin. (3) Constipation: Current visit: Yes Status: Acute Having small bowel movements P\\ start stools softener once taking PO (4) Wheezing on auscultation: Current visit: Yes Status: Acute MOst likely secondary to pain with deep breathing as well as patients obesity. No history of asthma Leukocytosis P\\ Continue albuterol and ISP Up and ambulating Ordered Chest Xray Use Incentive Spirometer Reviewed and discussed the above assessment and plan with Dr. Medina. Subjective Patient reports: feels better Interval history since last seen: Patient reports that he is feeling better. Tolerating clear liquids without any abdominal pain. He reports he did have some cramping after a popsicle which did not recur. He states that he had 2 soft BMs last night. He continues to have difficulty sleeping due to his back pain. Which has not changed. Exam Const General: cooperative and comfortable Orientation: oriented x3 Resp Effort & Inspection: normal respiratory effort Auscultation: no rales, no rhonchi and wheezes Cardio Rate: regular rate Rhythm: regular rhythm Heart Sounds: no click, no gallops and no murmurs GI Inspection: normal to inspection Palpation: soft and nontender Auscultation: hypoactive bowel sounds Objective Objective Clinical Data: Abnormal lab results 05/15/18 05/15/18 Range/Units 06:55 06:55 WBC 16.32 H (4.4-10.8) k/cumm RBC 3.52 L (4.50-6.00) m/cumm Hgb 10.2 L (13.5-17.5) g/dL Hct 33.1 L (40.0-50.0) % MCHC 30.8 L (32.0-36.0) g/dL Absolute Neutrophils 14.30 H (1.2-6.7) k/cumm Absolute Lymphocytes 0.88 L (1.2-3.4) k/cumm Absolute Monocytes 1.06 H (0.11-0.7) k/cumm Potassium 3.2 L (3.5-5.1) mmol/L Glucose 141 H (70-100) mg/dL Calcium 7.8 L (8.5-10.1) mg/dL Vital Signs Temp 37.2 C 05/15/18 07:30 Pulse 106 H 05/15/18 07:30 Resp 20 05/15/18 07:30 BP 116/82 05/15/18 07:30 Pulse Ox 96 05/15/18 07:30 Intake & Output 05/14/18 05/14/18 05/15/18 11:59 23:59 11:59 Intake Total 3996.667 / 3996.667 864.5 / 864.5 350 / 350 Output Total 500 / 500 450 / 450 150 / 150 Balance 3496.667 / 3496.667 414.5 / 414.5 200 / 200 Intake: IV 3756.667 / 3756.667 144.5 / 144.5 Oral 240 / 240 720 / 720 350 / 350 Output: Urine 500 / 500 450 / 450 150 / 150 Other: Urine Color Dark Clementina Yellow Yellow Urine Appearance Clear Clear Clear Comment voided into toilet-enc to use urinal voided into toilet-enc to use urinal Voiding Methods Toilet Urinal Urinal Laboratory Results WBC 16.32 k/cumm (4.4-10.8) H 05/15/18 06:55 RBC 3.52 m/cumm (4.50-6.00) L 05/15/18 06:55 Hgb 10.2 g/dL (13.5-17.5) L 05/15/18 06:55 Hct 33.1 % (40.0-50.0) L 05/15/18 06:55 MCV 94.0 fL (80-95) 05/15/18 06:55 MCH 29.0 pg (27.0-33.0) 05/15/18 06:55 MCHC 30.8 g/dL (32.0-36.0) L 05/15/18 06:55 RDW 13.5 % (11.8-14.1) 05/15/18 06:55 Plt Count 325 x1000/uL (130-400) 05/15/18 06:55 MPV 9.4 fL (8.0-11.0) 05/15/18 06:55 Abs Immat Gran (auto) Cancelled 05/12/18 08:55 Immature Gran % 0.3 05/15/18 06:55 Neutrophils % 87.6 05/15/18 06:55 Lymphocytes % 5.4 05/15/18 06:55 Monocytes % 6.5 05/15/18 06:55 Eosinophils % 0.1 05/15/18 06:55 Basophils % 0.1 05/15/18 06:55 Absolute Neutrophils 14.30 k/cumm (1.2-6.7) H 05/15/18 06:55 Band Neutrophils Cancelled 05/12/18 08:55 Absolute Lymphocytes 0.88 k/cumm (1.2-3.4) L 05/15/18 06:55 Absolute Monocytes 1.06 k/cumm (0.11-0.7) H 05/15/18 06:55 Absolute Eosinophils 0.02 k/cumm (0.0-0.7) 05/15/18 06:55 Absolute Basophils 0.02 k/cumm (0.0-0.2) 05/15/18 06:55 Metamyelocytes Cancelled 05/12/18 08:55 Myelocytes Cancelled 05/12/18 08:55 Promyelocytes Cancelled 05/12/18 08:55 Nucleated RBCs Cancelled 05/12/18 08:55 Differential Comment Cancelled 05/12/18 08:55 Atypical Lymphocytes Cancelled 05/12/18 08:55 Other Cell Type Cancelled 05/12/18 08:55 RBC Morphology Cancelled 05/12/18 08:55 Polychromasia Cancelled 05/12/18 08:55 Hypochromasia Cancelled 05/12/18 08:55 Poikilocytosis Cancelled 05/12/18 08:55 Basophilic Stippling Cancelled 05/12/18 08:55 Anisocytosis Cancelled 05/12/18 08:55 Microcytosis Cancelled 05/12/18 08:55 Macrocytosis Cancelled 05/12/18 08:55 Spherocytes Cancelled 05/12/18 08:55 Target Cells Cancelled 05/12/18 08:55 Tear Drop Cells Cancelled 05/12/18 08:55 Ovalocytes Cancelled 05/12/18 08:55 Stomatocytes Cancelled 05/12/18 08:55 [place] Bodies Cancelled 05/12/18 08:55 Belkis Cells Cancelled 05/12/18 08:55 Acanthocytes (Spur) Cancelled 05/12/18 08:55 Schistocytes Cancelled 05/12/18 08:55 ESR 35 MM/HR (1-20) H 05/12/18 06:35 Sodium 138 mmol/L (136-145) 05/15/18 06:55 Potassium 3.2 mmol/L (3.5-5.1) L 05/15/18 06:55 Chloride 101 mmol/L (98-107) 05/15/18 06:55 Carbon Dioxide 27.9 mmol/L (21.0-32.0) 05/15/18 06:55 Anion Gap 9.1 mmol/L (3-11) 05/15/18 06:55 BUN 14 mg/dL (7-18) D 05/15/18 06:55 Creatinine 0.83 mg/dL (0.70-1.30) 05/15/18 06:55 Estimated GFR/1.73 m2 >= 60.00 (mL/min/1.73m2) 05/15/18 06:55 Glucose 141 mg/dL (70-100) H 05/15/18 06:55 Calcium 7.8 mg/dL (8.5-10.1) L 05/15/18 06:55 Magnesium 1.8 mg/dL (1.8-2.4) 05/13/18 06:38 Total Bilirubin 0.7 mg/dL (0.2-1.0) 05/14/18 06:40 Conjugated Bilirubin 0.28 mg/dL (0.00-0.20) H 05/11/18 09:07 AST 31 U/L (15-37) 05/14/18 06:40 ALT 44 U/L (12-78) 05/14/18 06:40 Alkaline Phosphatase 84 U/L (46-116) 05/14/18 06:40 Troponin I 0.03 ng/mL (0.00-0.06) 05/11/18 09:07 C-Reactive Protein 9.31 mg/dL (0.0-0.3) H 05/12/18 06:35 Total Protein 6.3 g/dL (6.4-8.2) L 05/14/18 06:40 Albumin 2.3 g/dL (3.4-5.0) L 05/14/18 06:40 Lipase 270 U/L (73-393) 05/15/18 06:55
[2018-05-15] MEDS: Valsartan 80 MG TAB 320 MG PO (09:27)
[2018-05-15] MEDS: Metoprolol 50 MG TAB PO (09:28)
[2018-05-15] MEDS: Spironolactone 25 MG TAB PO (09:28)
[2018-05-15] MEDS: Sertraline 50 MG TAB 100 MG PO (09:28)
[2018-05-15] MEDS: amLODIPine 10 MG TAB PO (09:28)
--- NOTE | 2018-05-15 09:59 | DSE_ITS ---
Date of service: 05/15/18 Time of Service: 09:57 DS: Diagnosis Discharge Diagnosis (1) Acute gallstone pancreatitis: Status: Acute (2) Insomnia: Status: Acute (3) Constipation: Status: Acute (4) Wheezing on auscultation: Status: Acute Discharge Plan Disposition Patient Disposition: HOME Condition: Improving Discharge Details Reason For Visit: ACUTE GALLSTONE PACREATITIS,TRANSMINITIS Admit Date/Time: 05/11/18 11:41 Admit Provider: Jer Olmstead Attending Provider: Jer Olmstead Primary Care Provider: [facility] Hospital Course: Mr. Vaughn is a pleasant 57-year-old gentleman who was admitted on May 11 with gallstone pancreatitis. Lipase on admission was over 17,000. Today his lipase is down to 200. His white count went up to 22,000 and has slowly come down to 16,000. He was made n.p.o. on admission and started clear liquids yesterday May 14. Abdominal pain is resolved at this time. Patient was on oxygen up to 4 L. Respiratory consultation was done and the patient was started on some albuterol treatments incentive spirometer and increased ambulation. Today May 15 patient is off oxygen satting in the low 90s. I suspect that this is where she is normally at due to his body habitus. There is concern for sleep apnea and I have asked him and his to speak to Dr. Guevara about a possible sleep study. Chest x-ray was done on to rule out pneumonia due to his white count still being 16,000. Chest x-ray showed small pleural effusions but otherwise no signs of pneumonia. He does have an enlarged heart and a small hiatal hernia. Due to the amount of inflammation on his CAT scan patient will be discharged on a low-fat diet. We will await a few weeks to try to get more of the inflammation to go down prior to doing an elective cholecystectomy. Allowing the inflammation to reduce will hopefully make his surgery a little bit easier. I think the patient would also benefit from a anesthesia consultation due to his size. Patient was on telemetry the entire time he was hospitalized and had no issues. Patient did not require any insulin while hospitalized. Patient did not get his metformin which he states he has not been taking as his diabetes is under control. Patient will go home with his incentive spirometer I have asked him to use this whenever there is a commercial on the TV. I have asked him to be up and ambulating as much as possible. We have stressed a low-fat diet. He will see a day trader before he is discharged. We will have patient get labs drawn on Friday to follow his white count. We will also have him see Dr. Smith as an outpatient. Home Meds and New Rx's Prescriptions: Continue metoprolol succinate 100 MG tablet extended release 24 hr 200 mg PO DAILY RF: 0 sertraline 100 MG tablet 100 mg PO DAILY RF: 0 aspirin [Aspir-81] 81 MG tablet,delayed release (DR/EC) 81 mg PO DAILY RF: 0 metformin 500 MG tablet extended release 24 hr 500 mg PO BID RF: 0 amlodipine-valsartan [Exforge] 1 EACH tablet 1 ea PO DAILY RF: 0 terazosin 5 mg Capsule 5 mg PO DAILY RF: 0 atorvastatin 40 mg Tablet 40 mg PO DAILY RF: 0 spironolactone 25 mg Tablet 25 mg PO DAILY RF: 0 Discharge Instructions Instructions: Pancreatitis (DC), Low Fat Diet (DC) Additional Instructions: Please return to the ER or call the hospital if you develop: fevers >101.5 Nausea or Vomiting Worsening abdominal pain No New Medications: Other: Please go to outpatient lab on Friday to have your blood drawn. I would like to check your white blood cell count to make sure it is still getting better. Stand Alone Forms: Nursing Discharge Form Referrals: Jer Olmstead DO [ [facility] STAFF PHYSICIAN] - 05/25/18 1:30 pm Amos Guevara MD [Primary Care Provider] - (2-3 weeks please. Follow up hoispitalization) Activity:: Activity as Tolerated Equipment/Supplies:: No Equipment Needed Diet:: low fat, diabetic Discharge Orders Other Ambulatory Orders: Complete Blood Count w/Diff (Routine) Timeframe: 3 Days Facility: [facility] - Location: Laboratory Outpatient Ordered By: Fozia Medina DS: Summary Status at Discharge Functional status at discharge: independent ambulation Overall status at discharge: patient is progressing back to baseline Time Spent with Patient Greater than 30 minutes Exam Const General: comfortable Nutritional Appearance: obese Resp Effort & Inspection: normal respiratory effort Auscultation: clear to auscultation bilaterally and diminished lung sounds ( bilateral bases) Cardio Rate: regular rate Rhythm: regular rhythm Heart Sounds: no click, no gallops and no murmurs GI Inspection: normal to inspection Palpation: soft, no hepatosplenomegaly and nontender Auscultation: normal bowel sounds DS: Data Vitals/I&O Vitals and I&O: Vital Signs Temp 99.0 F 05/15/18 07:30 Pulse 106 H 05/15/18 07:30 Resp 20 05/15/18 07:30 BP 116/82 05/15/18 07:30 Pulse Ox 96 05/15/18 07:30 Intake & Output 05/14/18 05/14/18 05/15/18 11:59 23:59 11:59 Intake Total 3996.667 / 3996.667 864.5 / 864.5 350 / 350 Output Total 500 / 500 450 / 450 150 / 150 Balance 3496.667 / 3496.667 414.5 / 414.5 200 / 200 Intake: IV 3756.667 / 3756.667 144.5 / 144.5 Oral 240 / 240 720 / 720 350 / 350 Output: Urine 500 / 500 450 / 450 150 / 150 Other: Urine Color Dark Clementina Yellow Yellow Urine Appearance Clear Clear Clear Comment voided into toilet-enc to use urinal voided into toilet-enc to use urinal Voiding Methods Toilet Urinal Urinal Labs on day of discharge: Labs from last 24 hours 05/15/18 05/15/18 06:55 06:55 WBC 16.32 H RBC 3.52 L Hgb 10.2 L Hct 33.1 L MCV 94.0 MCH 29.0 MCHC 30.8 L RDW 13.5 Plt Count 325 MPV 9.4 Immature Gran % 0.3 Neutrophils % 87.6 Lymphocytes % 5.4 Monocytes % 6.5 Eosinophils % 0.1 Basophils % 0.1 Absolute Neutrophils 14.30 H Absolute Lymphocytes 0.88 L Absolute Monocytes 1.06 H Absolute Eosinophils 0.02 Absolute Basophils 0.02 Sodium 138 Potassium 3.2 L Chloride 101 Carbon Dioxide 27.9 Anion Gap 9.1 BUN 14 D Creatinine 0.83 Estimated GFR/1.73 m2 >= 60.00 Glucose 141 H Calcium 7.8 L Lipase 270
--- NOTE | 2018-05-15 10:53 | PDOC.CMDIS ---
LACE Index Scoring Tool - Questions: Length of Stay (in days): 4 - 6 Acuity (Admit via E.D.?): Yes Comorbidities: Diabetes w/o Complication, Any Tumor E.D. Visits: 1 - Answers: Total Score: 11 Risk of Readmission: High Risk Care Management Discharge Reason for Hospitalization: Acute Gallstone pancreatitis, transminitis Discharge Plan: Terry will return home when ready per MD, he will have nutritional recommendations, follow up with the lab on 05/18/18 and per his report have a planned surgical intervention in the future. CM provided follow up contact information for patient accounts, [employer] assistance, and [employer] as Terry is undecided if he wants to sign up for insurance or create payment plan with [facility] for self pay status. Terry will transport via private vehicle with his , Autumn. Patient/Family Education Needs: Review of discharge instructions, discuss Ask Me Three. Terry verbalizes understanding of discharge plan of care including initiating a low fat diet and follow up labs.
--- NOTE | 2018-05-15 10:53 | NUTRITION ---
Instructed patient on fat restricted nutrition therapy. Provided written materials. Answered questions. Patient verbalized a good understanding of the information. Provided my contact information and encouraged him to follow up with me with any questions or concerns regarding his nutrition therapy. Thank you for the consult.
--- NOTE | 2018-05-15 11:00 | CMDISCH_ITS ---
LACE Index Scoring Tool - Questions: Length of Stay (in days): 4 - 6 Acuity (Admit via E.D.?): Yes Comorbidities: Diabetes w/o Complication, Any Tumor E.D. Visits: 1 - Answers: Total Score: 11 Risk of Readmission: High Risk Care Management Discharge Reason for Hospitalization: Acute Gallstone pancreatitis, transminitis Discharge Plan: Terry will return home when ready per MD, he will have nutritional recommendations, follow up with the lab on 05/18/18 and per his report have a planned surgical intervention in the future. CM provided follow up contact information for patient accounts, [employer] assistance, and [employer] as Terry is undecided if he wants to sign up for insurance or create payment plan with [facility] for self pay status. Terry will transport via private vehicle with his , Autumn. Patient/Family Education Needs: Review of discharge instructions, discuss Ask Me Three. Terry verbalizes understanding of discharge plan of care including initiating a low fat diet and follow up labs.
== END 2018-05-15 11:42 | disposition home or self-care (01) | DRG 439 ==
LOC: ER 13:19 → MS 14:50
PROVIDERS: Surgery; Admitting Provider Surgery; Emergency Provider Physician Assistant; PCP Internal Medicine; Visit Provider Surgery
DX: K85.10 Biliary acute pancreatitis without necrosis or infection (principal); J90 Pleural effusion, not elsewhere classified; N17.9 Acute kidney failure, unspecified; Z68.43 Body mass index [BMI] 50.0-59.9, adult; D72.829 Elevated white blood cell count, unspecified; E86.0 Dehydration; R06.2 Wheezing; I51.7 Cardiomegaly; K44.9 Diaphragmatic hernia without obstruction or gangrene; E11.9 Type 2 diabetes mellitus without complications; I10 Essential (primary) hypertension; E66.9 Obesity, unspecified; G47.00 Insomnia, unspecified; K59.00 Constipation, unspecified; M54.9 Dorsalgia, unspecified
CPT/HCPCS: 36415; 80048; 80053; 80076; 83690; 85652; 93005; 96361; 96374; 96375; 97161; 99223; 99231; 99232; 99239; 99285; J1650; 71046; 74177; 76700; 83735; 84484; 85025; 86140; 93010; 94640; J0131; J1941; J2270; J2405; J3490; J7613

== ENCOUNTER 2018-05-18 10:08 | Outpatient (CLI) | payer SELFPAY ==
[2018-05-18 10:56] LABS: Abs Immature Grans 0.17 k/cumm (0.0-0.09); Absolute Eosinophil Count 0.28 k/cumm (0.0-0.7); Basophils % 0.1; Eosinophils % 1.2; HCT 32.7 % (40.0-50.0); HGB 10.2 g/dL (13.5-17.5); Immature Grans % 0.7; Lymphocytes % 5.8; Mean Corp. HGB Concentration 31.2 g/dL (32.0-36.0); Mean Corpuscular Hemoglobin 29.2 pg (27.0-33.0); Mean Corpuscular Volume 93.7 fL (80-95); Mean Platelet Volume 9.1 fL (8.0-11.0); Monocytes % 8.2; Platelet Count 443 x1000/uL (130-400); RBC 3.49 m/cumm (4.50-6.00); RBC Distribution Width 14.1 % (11.8-14.1); White Blood Cell Count 23.46 k/cumm (4.4-10.8)
[2018-05-18 10:57] LABS: Absolute Basophil Count 0.02 k/cumm (0.0-0.2); Absolute Lymphocyte Count 1.36 k/cumm (1.2-3.4); Absolute Monocyte Count 1.92 k/cumm (0.11-0.7); Absolute Neutrophil Count 19.71 k/cumm (1.2-6.7)
[2018-05-18 11:22] LABS: Diff Comment Diff Reviewed; RBC Morphology Normal
== END 2018-05-18 10:28 ==
PROVIDERS: PCP Internal Medicine; Visit Provider Surgery
DX: D72.829 Elevated white blood cell count, unspecified (principal)
CPT/HCPCS: 36415; 85025

== ENCOUNTER 2018-05-18 17:44 | Emergency (ER) | payer SELFPAY ==
[2018-05-18] VITALS (11 sets, daily range): BP systolic 73–141; BP diastolic 38–88; PULSE 16–111; RESP 16–31; TEMP 36.6–37.1; O2SAT 92–95
--- NOTE | 2018-05-18 20:20 | DI.COMBO_ITS ---
SYMPTOM/DIAGNOSIS: LEUKOCYTOSIS, COLD SWEATS, ? PNEUMONIA OR PANCREATIC ABSCESS , RECENT GALLSTONE PANCREATITIS PA AND LATERAL CHEST: There is a small region of left basilar atelectasis or infiltrate. The pleural spaces are unremarkable. The heart is normal. Note is incidentally made of a small hiatus hernia. The bony structures are unremarkable. SUMMARY: A small area of left basilar atelectasis versus infiltrate is demonstrated. There is a small hiatus hernia. ABDOMEN AND PELVIC CT: The study was conducted according to the usual protocol with intravenous contrast enhancement. A small region of atelectasis or infiltration involving the left lower lobe is demonstrated. There is a small bilateral pleural effusion. The liver is intact. Large gallstones are identified in the gallbladder. There is a large amount of peripancreatic and retroperitoneal edema, improved when compared with the previous study. The spleen and adrenals and kidneys are unremarkable. The stomach and bowel are intact. There are no findings to suggest an acute appendix. The bladder is unremarkable. The reproductive organs as visualized are unremarkable. There is no evidence of free air or free fluid in the intraperitoneal space. No acute bony abnormality is seen. Note is made of a small fat containing umbilical hernia. There is no aortic aneurysm. There is no lymphadenopathy. SUMMARY: There is a large amount of peripancreatic edema which has decreased slightly when compared with the prior study. There is no evidence of a focal fluid collection or abscess on today's examination. There are small bilateral pleural effusions and a small region of left lower lobe atelectasis versus infiltrate is seen. There is evidence of cholelithiasis and a small fat containing umbilical hernia is demonstrated.
--- NOTE | 2018-05-18 20:28 | ED.GENADUL_ITS ---
Discharge Plan Disposition Patient Disposition: HOME Condition: Good Discharge Details Chief Complaint: Abd Prob Clinical Impression: Leukocytosis, Cholelithiasis, History of pancreatitis Primary Care Provider: Amos Guevara ED Provider: Dorita Aguirre Home Meds and New Rx's Prescriptions: Continue metoprolol succinate 100 MG tablet extended release 24 hr 200 mg PO DAILY RF: 0 sertraline 100 MG tablet 100 mg PO DAILY RF: 0 aspirin [Aspir-81] 81 MG tablet,delayed release (DR/EC) 81 mg PO DAILY RF: 0 amlodipine-valsartan [Exforge] 1 EACH tablet 1 ea PO DAILY RF: 0 terazosin 5 mg Capsule 5 mg PO DAILY RF: 0 atorvastatin 40 mg Tablet 40 mg PO DAILY RF: 0 spironolactone 25 mg Tablet 25 mg PO DAILY RF: 0 Discharge Instructions Instructions: Leukocytosis (ED) Additional Instructions: You should receive a call from surgery tomorrow regarding plan for repeat labs and possible gallbladder ultrasound later this week. Return immediately to the emergency department if you have any worsening or new concerning symptoms such as fever, worsening abdominal pain, or unable to eat or drink. Discharge Data Discharge Date/Time-TO BE ENTERED AT DEPARTURE: 05/18/18 23:15 Discharge Physician: Dorita Aguirre Medical Decision Making MDM Narrative Medical decision making narrative: Patient is a 57-year-old male with history of diabetes, hyperlipidemia, hypertension, morbid obesity who presents directed by Dr. Medina for CT abdomen. Patient was seen here last week for abdominal pain found to be related to acute gallstone pancreatitis. Patient's lipase was 17,000 at that time. Plan per surgery was for holding on elective cholecystectomy until significant inflammation around pancreas decreased over the next couple weeks. Patient's lipase prior to discharge was 200. Patient had scheduled repeat labs today to assess his white blood cell count which was noted to be 23 this morning. Patient was sent by Dr. Medina for CT of the abdomen to rule out a pancreatic abscess. Patient states he otherwise has been feeling much better than last week. He does admit to cold sweats 2 days ago and this morning but denies any known fever. He has been mainly eating fruit and no fatty foods. He denies any abdominal pain. His last bowel movement today was diarrhea yellow and green which he states he has been having for days. He otherwise denies cough, chest pain, shortness of breath, urinary symptoms, nausea or vomiting. He was not sent home on narcotic pain medication or antibiotics. Abdomen slightly tender in the epigastric region. Lungs clear to auscultation. He is afebrile and remainder of vitals noted a blood pressure 141/88 and normal heart rate and respiratory rate. Will place an IV, check labs, urinalysis, chest xray, and obtain CT abdomen to rule out abscess or any other acute process. 2229 --labs and imaging reviewed. White blood cell count 24. Hemoglobin 11. Potassium 3.4. Bicarb 32.3. Lactate 1.2. AST 38. ALT 46. Alk phos 175. Lipase 370. T bili 0.6. urinalysis notes 10-20 WBCs but negative nitrate, bacteria, leukocyte esterase. Chest x-ray negative. CT notes large amount of elsa-pancreatic edema but this is improved from previous CT and there is no fluid collection or abscess noted. Will call surgery to discuss plan. 2244 --discussed with Dr. Olmstead -states in the setting of improving CT without abscess, no obvious signs of cholecystitis on CT, normal lipase, unremarkable AST/ALT/T. bili, patient otherwise improving and eating well, okay to discharge home with plans for repeat labs and ultrasound later this week. Patient will be called tomorrow by surgery with plan for repeat labs and ultrasound. 2299 --pt states he feels much better and feel better than I have in days and is requesting to go home. Vitals stable. Patient instructed to return immediately to the emergency department with any worsening or new concerning symptoms such as fever, worsening abdominal pain or unable to take p.o. HPI - General Adult General Mode of arrival: ambulatory . Date/Time Provider Initiated Documentation: 05/18/18 19:02 . Limitations to Documentation: no limitations . Information obtained by: patient . HPI Narrative: Patient is a 57-year-old male with a history of recently diagnosed acute gallstone pancreatitis, diabetes, hypertension, hyperlipidemia, and morbid obesity who presents after directed to the ED by Dr. Medina for CAT scan of his abdomen due to leukocytosis noted on labs today. Pt states he has been feeling better overall and denies any abdominal since last week while admitted to the hospital for his gallstone pancreatitis. States I feel better today than I have in days. does state that pt c/o cold sweats 2 days ago and this morning but pt denies known fever. States he has had watery yellow/ green diarrhea for days and that he has been eating a low fat diet with mainly fruit since discharge from the hospital. He denies nausea, vomiting, urinary symptoms, chest pain or shortness of breath. He is not taking narcotic pain medicine or antibiotics. PMH: Gallstone pancreatitis, DM, HLD, HTN Past surgical history: Tonsillectomy, Neck lipoma resection Social history: Rare ETOH, denies tobacco or drugs Meds: see list Allergies: NKDA Related Data Home Medications Medication Instructions Recorded Confirmed amlodipine-valsartan [Exforge] 1 ea PO DAILY 10/04/13 05/18/18 aspirin [Aspir-81] 81 mg PO DAILY 10/04/13 05/18/18 metoprolol succinate 200 mg PO DAILY 10/04/13 05/18/18 sertraline 100 mg PO DAILY 10/04/13 05/18/18 atorvastatin 40 mg PO DAILY 05/11/18 05/18/18 spironolactone 25 mg PO DAILY 05/11/18 05/18/18 terazosin 5 mg PO DAILY 05/11/18 05/18/18 Allergies Allergy/AdvReac Type Severity Reaction Status Date / Time No Known Allergies Allergy Unverified 05/18/18 18:08 General Stated Complaint: Abd Prob CHRISTIANO: 3 Review of Systems Review of Systems All systems reviewed & are unremarkable except as noted in HPI and below Constitutional Denies chills, Denies fatigue, Denies fever(s), Denies weakness, Denies weight loss and Reports other (cold sweats 2 days ago and this morning) Eyes Patient Reports system reviewed and no additional complaints, except as docu and Denies blurry vision ENT Denies vertigo, Denies dizziness, Denies otalgia, Denies nasal congestion, Denies sore throat and Denies throat swelling Cardiovascular Denies chest pain, Denies syncope, Denies rapid heart rate and Denies dyspnea Respiratory Denies dyspnea Gastrointestinal Denies abdominal pain, Reports diarrhea and Denies vomiting Genitourinary Denies hematuria, Denies dysuria and Denies flank pain Musculoskeletal Denies back pain and Denies joint swelling Integumentary/Breasts Denies lesions and Denies rash Neurologic Denies behavioral changes, Denies confusion, Denies vertigo, Denies dizziness, Denies syncope and Denies weakness Psychiatric Denies behavioral changes, Denies confusion and Denies depression Endocrine Denies fatigue Hematologic/Lymphatic Denies easy bruising and Denies lymphadenopathy Allergic/Immunologic Denies throat swelling Exam Const General: cooperative and healthy appearing Orientation: alert and awake [facility] Head: normal to inspection Ears: hearing grossly normal bilaterally and external ears normal General nose exam: external nose normal Face and sinus: normal facial exam Mouth: oral mucosae normal Eyes General: appearance normal, both eyes and all related structures Eyelids: eyelids normal EOM: EOM intact bilaterally Neck Neck: normal visual inspection Chest Chest: normal inspection of the chest Resp Effort & Inspection: normal respiratory effort and able to speak in complete sentences Auscultation: clear to auscultation bilaterally Cardio Rate: regular rate Rhythm: regular rhythm GI Inspection: normal to inspection and other (obese) Palpation: soft, not firm, no guarding, no hepatosplenomegaly, no masses and tender (mild) in the epigastrum and in the LLQ Auscultation: normal bowel sounds Back/Spine/Pelvis Back: no CVA tenderness Skin General skin exam: no rashes or lesions noted Neuro General: alert and awake Cognition: normal cognition Speech: speech normal Gait: normal gait Motor: muscle tone normal throughout Extrem General: normal to inspection, full ROM and normal capillary refill Psych Appearance: grossly normal Mental Status: mental status grossly normal Speech and Movement: speech and movement normal Affect: normal affect Thought Process: normal Course Vital Signs Temperature 97.9 F 05/18/18 18:06 Pulse 16 L 05/18/18 18:06 Respiratory Rate 16 05/18/18 18:06 Blood Pressure 141/88 H 05/18/18 18:06 Temperature 97.9 F 05/18/18 18:06 Pulse 16 L 05/18/18 18:06 Respiratory Rate 16 05/18/18 18:06 Blood Pressure 141/88 H 05/18/18 18:06
[2018-05-18 20:49] LABS: Lactate-non-spesis 1.2 mmol/L (0.6-1.4)
[2018-05-18] MEDS: Normal Saline 500 ML IV (20:49)
[2018-05-18 21:05] LABS: ALT 46 U/L (12-78); AST 38 U/L (15-37); Albumin 2.4 g/dL (3.4-5.0); Alkaline Phosphatase 175 U/L (46-116); Anion Gap 4.7 mmol/L (3-11); BUN 10 mg/dL (7-18); Bilirubin, Total 0.6 mg/dL (0.2-1.0); CO2 32.3 mmol/L (21.0-32.0); CREATININE 1.19 mg/dL (0.70-1.30); Calcium 8.4 mg/dL (8.5-10.1); Chloride 100 mmol/L (98-107); Glucose 177 mg/dL (70-100); Lipase 370 U/L (73-393); Potassium 3.4 mmol/L (3.5-5.1); Sodium 137 mmol/L (136-145); Total Protein 6.9 g/dL (6.4-8.2)
[2018-05-18 21:15] LABS: Abs Immature Grans 0.24 k/cumm (0.0-0.09); Basophils % 0.1; Eosinophils % 1.5; HGB 11.1 g/dL (13.5-17.5); Lymphocytes % 7.2; Mean Corp. HGB Concentration 30.8 g/dL (32.0-36.0); Mean Corpuscular Hemoglobin 28.5 pg (27.0-33.0); Mean Corpuscular Volume 92.5 fL (80-95); Mean Platelet Volume 9.1 fL (8.0-11.0); Monocytes % 7.2; Platelet Count 460 x1000/uL (130-400); RBC 3.89 m/cumm (4.50-6.00); RBC Distribution Width 14.3 % (11.8-14.1); White Blood Cell Count 24.79 k/cumm (4.4-10.8)
[2018-05-18 21:16] LABS: Absolute Basophil Count 0.02 k/cumm (0.0-0.2); Absolute Eosinophil Count 0.37 k/cumm (0.0-0.7); Absolute Lymphocyte Count 1.78 k/cumm (1.2-3.4); Absolute Monocyte Count 1.78 k/cumm (0.11-0.7); Absolute Neutrophil Count 20.58 k/cumm (1.2-6.7)
[2018-05-18 21:35] LABS: Diff Comment Diff Reviewed
[2018-05-18] MEDS: Omnipaque 350 MG/ML 100 ML BTL IJ (21:44)
--- NOTE | 2018-05-18 22:09 | DI.VRAD_ITS ---
EXAM: CT Abdomen and Pelvis With Intravenous Contrast CLINICAL HISTORY: 57 years old, male; Condition or disease; Pancreatic condition; Pancreatitis; Patient HX: Recent gallstone pancreatitis; Additional info: R/O pancreas abscess TECHNIQUE: Axial computed tomography images of the abdomen and pelvis with intravenous contrast. Coronal and sagittal reformatted images were created and reviewed. COMPARISON: CT - Abdomen^ROUTINE ABDOMEN PELVIS WITH CONTRAST (Adult) 05/11/2018 12:30 PM FINDINGS: Lung bases: Unremarkable. No mass. No consolidation. Pleural space: Small pleural effusions. ABDOMEN: Liver: Unremarkable. No mass. Gallbladder and bile ducts: Large stones in the gallbladder. Pancreas: Large amount of peripancreatic and retroperitoneal edema, improved since the comparison study. Spleen: Unremarkable. No splenomegaly. Adrenals: Unremarkable. No mass. Kidneys and ureters: Unremarkable. No solid mass. No hydronephrosis. Stomach and bowel: Unremarkable. No obstruction. No mucosal thickening. PELVIS: Appendix: No findings to suggest acute appendicitis. Bladder: Unremarkable. No mass. Reproductive: Unremarkable as visualized. ABDOMEN and PELVIS: Intraperitoneal space: Unremarkable. No free air. No significant fluid collection. Bones/joints: No acute fracture. No dislocation. Soft tissues: Small fat-containing umbilical hernia. Vasculature: Unremarkable. No abdominal aortic aneurysm. Lymph nodes: Unremarkable. No enlarged lymph nodes. IMPRESSION: There is a large amount of peripancreatic edema but it has improved slightly since the comparison study. No evidence of any focal fluid collection or abscess at this point in time. Small pleural effusions. Small fat containing umbilical hernia. Cholelithiasis. Dictated and Authenticated by: Amos Garcia MD. Ordering:MARK COULTER MD
--- NOTE | 2018-05-18 22:12 | DI.VRAD_ITS ---
EXAM: XR Chest, 2 Views CLINICAL HISTORY: 57 years old, male; Signs and symptoms; Other: Leukocytosis, cold sweats; Additional info: R/0 pneumonia TECHNIQUE: Frontal and lateral views of the chest. COMPARISON: CR - XR CHEST 2V PA LATERAL 05/15/2018 8:36 AM FINDINGS: Lungs: Small amount of left base atelectasis, improved. Pleural space: Unremarkable. No pneumothorax. Heart: Unremarkable. No cardiomegaly. Mediastinum: Small hiatal hernia. Bones/joints: Unremarkable. IMPRESSION: Minimal left base atelectasis Hiatal hernia Dictated and Authenticated by: Amos Garcia MD. Ordering:MARK COULTER MD
[2018-05-18 22:16] LABS: Bilirubin Negative (Negative); Blood Negative (Negative); Clarity Clear; Glucose Negative (Negative); Ketones Negative (Negative); Leukocyte Esterase Negative (Negative); Nitrite Negative (Negative)
[2018-05-18 22:38] LABS: Bacteria Negative HPF (Negative); C & S Indicated? Yes; Casts Negative LPF (Negative); Crystals Negative HPF (Negative); Epithelial Cells Negative HPF (Negative); Mucus Moderate (Negative); Other Cells Negative (Negative); RBC Negative (0-2)
== END 2018-05-18 23:15 | disposition home or self-care (01) ==
PROVIDERS: Emergency Provider Physician Assistant; PCP Internal Medicine
DX: K80.20 Calculus of gallbladder without cholecystitis without obstruction (principal); D72.829 Elevated white blood cell count, unspecified; K85.90 Acute pancreatitis without necrosis or infection, unspecified; E11.9 Type 2 diabetes mellitus without complications; I10 Essential (primary) hypertension
CPT/HCPCS: 36415; 80053; 83690; 96360; 99285; 71046; 74177; 81003; 81015; 83605; 85025; 87086; 99284; J3490

== ENCOUNTER 2018-05-22 00:19 | Outpatient (CLI) | payer SELFPAY ==
--- NOTE | 2018-05-22 07:49 | DI.US_ITS ---
SYMPTOM/DIAGNOSIS: ELEVATED WBC, LIPASE, ? ACUTE CHOLECYSTITIS, ACUTE GALLSTONE , BILIARY ACUTE PANCREATITIS, K85.10 RUQ PAIN ABDOMEN ULTRASOUND: Routine examination. Comparison is made with 05/18/18 and 05/11/18. The aorta and IVC are unremarkable. The liver is enlarged measuring 23 cm. in length. No hepatic mass is seen. There is a 2.3 cm. stone in the body of the gallbladder. No gallbladder wall thickening or pericholecystic fluid is seen. There is a negative sonographic German's sign. The common duct is within normal limits at .6 cm. The pancreas is unremarkable as are the kidneys. The spleen is enlarged measuring 14 cm. in length. IMPRESSION: 1. Cholelithiasis. No sonographic findings to suggest acute cholecystitis. 2. Hepatosplenomegaly.
[2018-05-22 10:14] LABS: Absolute Basophil Count 0.02 k/cumm (0.0-0.2); Absolute Eosinophil Count 0.28 k/cumm (0.0-0.7); Basophils % 0.1; Eosinophils % 1.4; HCT 32.9 % (40.0-50.0); HGB 9.9 g/dL (13.5-17.5); Immature Grans % 0.5; Lymphocytes % 7.6; Mean Corpuscular Hemoglobin 28.2 pg (27.0-33.0); Mean Corpuscular Volume 93.7 fL (80-95); Mean Platelet Volume 9.1 fL (8.0-11.0); Monocytes % 6.5; Neutrophils % 83.9; Platelet Count 518 x1000/uL (130-400); RBC 3.51 m/cumm (4.50-6.00); White Blood Cell Count 20.24 k/cumm (4.4-10.8)
[2018-05-22 10:18] LABS: Absolute Lymphocyte Count 1.54 k/cumm (1.2-3.4); Absolute Monocyte Count 1.32 k/cumm (0.11-0.7); Absolute Neutrophil Count 16.98 k/cumm (1.2-6.7)
[2018-05-22 10:19] LABS: Mean Corp. HGB Concentration 30.1 g/dL (32.0-36.0)
== END 2018-05-22 00:39 ==
PROVIDERS: PCP Internal Medicine; Visit Provider Surgery
DX: K85.10 Biliary acute pancreatitis without necrosis or infection (principal); K80.20 Calculus of gallbladder without cholecystitis without obstruction; R16.2 Hepatomegaly with splenomegaly, not elsewhere classified
CPT/HCPCS: 36415; 76700; 85025

== ENCOUNTER 2018-05-26 09:23 | Outpatient (CLI) | payer SELFPAY ==
[2018-05-26 09:55] LABS: Abs Immature Grans 0.06 k/cumm (0.0-0.09); Absolute Basophil Count 0.03 k/cumm (0.0-0.2); Absolute Lymphocyte Count 1.85 k/cumm (1.2-3.4); Absolute Monocyte Count 0.72 k/cumm (0.11-0.7); Absolute Neutrophil Count 10.42 k/cumm (1.2-6.7); Basophils % 0.2; Eosinophils % 2.5; HGB 11.2 g/dL (13.5-17.5); Immature Grans % 0.4; Lymphocytes % 13.8; Mean Corp. HGB Concentration 31.1 g/dL (32.0-36.0); Mean Corpuscular Hemoglobin 28.4 pg (27.0-33.0); Mean Corpuscular Volume 91.4 fL (80-95); Monocytes % 5.4; Neutrophils % 77.7; Platelet Count 590 x1000/uL (130-400); RBC 3.94 m/cumm (4.50-6.00); RBC Distribution Width 13.3 % (11.8-14.1); White Blood Cell Count 13.41 k/cumm (4.4-10.8)
[2018-05-26 09:56] LABS: Absolute Eosinophil Count 0.34 k/cumm (0.0-0.7)
[2018-05-26 10:44] LABS: ALT 25 U/L (12-78); AST 15 U/L (15-37); Albumin 2.8 g/dL (3.4-5.0); Alkaline Phosphatase 145 U/L (46-116); Anion Gap 7.7 mmol/L (3-11); BUN 13 mg/dL (7-18); Bilirubin, Total 0.3 mg/dL (0.2-1.0); CO2 30.3 mmol/L (21.0-32.0); CREATININE 1.11 mg/dL (0.70-1.30); Calcium 9.1 mg/dL (8.5-10.1); Chloride 97 mmol/L (98-107); Glucose 312 mg/dL (70-100); Lipase 527 U/L (73-393); Potassium 4.7 mmol/L (3.5-5.1); Sodium 135 mmol/L (136-145); Total Protein 6.8 g/dL (6.4-8.2)
== END 2018-05-26 09:43 ==
PROVIDERS: PCP Internal Medicine; Visit Provider Surgery
DX: K85.10 Biliary acute pancreatitis without necrosis or infection (principal)
CPT/HCPCS: 36415; 80053; 83690; 85025

== ENCOUNTER 2018-06-04 12:39 | Outpatient (REF) | payer SELFPAY ==
[2018-06-04 21:19] LABS: Abs Immature Grans 0.02 k/cumm (0.0-0.09); Absolute Basophil Count 0.03 k/cumm (0.0-0.2); Absolute Eosinophil Count 0.33 k/cumm (0.0-0.7); Absolute Lymphocyte Count 1.84 k/cumm (1.2-3.4); Absolute Monocyte Count 0.64 k/cumm (0.11-0.7); Absolute Neutrophil Count 6.52 k/cumm (1.2-6.7); Basophils % 0.3; Eosinophils % 3.5; HCT 36.5 % (40.0-50.0); HGB 11.2 g/dL (13.5-17.5); Immature Grans % 0.2; Lymphocytes % 19.6; Mean Corp. HGB Concentration 30.7 g/dL (32.0-36.0); Mean Corpuscular Hemoglobin 27.6 pg (27.0-33.0); Mean Corpuscular Volume 89.9 fL (80-95); Mean Platelet Volume 10.2 fL (8.0-11.0); Monocytes % 6.8; Neutrophils % 69.6; Platelet Count 502 x1000/uL (130-400); RBC 4.06 m/cumm (4.50-6.00); RBC Distribution Width 13.8 % (11.8-14.1); White Blood Cell Count 9.38 k/cumm (4.4-10.8)
[2018-06-04 21:31] LABS: ALT 24 U/L (12-78); AST 19 U/L (15-37); Albumin 3.3 g/dL (3.4-5.0); Alkaline Phosphatase 139 U/L (46-116); BUN 17 mg/dL (7-18); Bilirubin, Total 0.7 mg/dL (0.2-1.0); Calcium 9.6 mg/dL (8.5-10.1); Chloride 101 mmol/L (98-107); Glucose 172 mg/dL (70-100); Lipase 330 U/L (73-393); Potassium 4.5 mmol/L (3.5-5.1); Sodium 138 mmol/L (136-145); Total Protein 7.1 g/dL (6.4-8.2)
== END 2018-06-04 12:59 ==
LOC: NCHCN 12:39
PROVIDERS: PCP Internal Medicine; Visit Provider Nurse Practitioner
DX: I51.7 Cardiomegaly (principal); Z87.19 Personal history of other diseases of the digestive system; D72.829 Elevated white blood cell count, unspecified
CPT/HCPCS: 80053; 83690; 85025

== ENCOUNTER 2018-07-02 06:14 | Day surgery (SDC) | payer SELFPAY ==
[2018-07-02] VITALS (8 sets, daily range): BP systolic 104–131; BP diastolic 52–68; PULSE 63–74; RESP 15–20; TEMP 36.5–37.1; O2SAT 93–97
--- NOTE | 2018-07-02 06:32 | W.PM.DSUDISC ---
Discharge Plan Disposition Patient Disposition: HOME Condition: Good Discharge Details Reason For Visit: Laparoscopic Cholecystectomy Attending Provider: Fozia Medina Primary Care Provider: Amos Guevara Home Meds and New Rx's Prescriptions: New acetaminophen [Tylenol 8 Hour] 650 mg tablet extended release 650 mg PO Q6H PRN PRN (Reason: pain) Qty: 30 RF: 0 ibuprofen 600 mg tablet 600 mg PO QID PRN (Reason: pain) Qty: 30 RF: 0 polyethylene glycol 3350 [Miralax] 17 gram/dose powder 17 gm PO DAILY PRN (Reason: constipation) Qty: 238 RF: 0 oxycodone 5 mg tablet 5 mg PO Q6H PRN (Reason: pain) Qty: 20 RF: 0 Continue metoprolol succinate 100 MG tablet extended release 24 hr 200 mg PO DAILY RF: 0 sertraline 100 MG tablet 100 mg PO DAILY RF: 0 terazosin 5 mg Capsule 5 mg PO DAILY RF: 0 atorvastatin 40 mg Tablet 40 mg PO DAILY RF: 0 spironolactone 25 mg Tablet 25 mg PO DAILY RF: 0 amlodipine-valsartan 10-320 mg Tablet 1 tab PO DAILY RF: 0 Discharge Instructions Instructions: Laparoscopic Cholecystectomy (DC) Additional Instructions: Follow up: 07/14/[address] at [address] Medina Medications: Tylenol 650 mg every 6 hours as needed Ibuprofen 600 mg every 6 hours as needed (may alternate with Tylenol. Example take Tylenol and 3 hours later may take ibuprofen) Oxycodon 5 mg every 6 hours as needed for severe pain Miralax 17 gm daily as needed for constipation Other: May shower tomorrow Do not soak incision for 1 week May use ice and/or heat to help with pain, swelling and bruising Walk around at least 4-5 times per day. Diet: Low fat for 2 weeks 1. Because there will be medication in your system for the next 24 hours, you may feel a little sleepy. Your coordination will be affected. Therefore: a. Do not drive or operate dangerous equipment for 24 hours. b. Do not drink alcohol beverages for 24 hours (not even beer). c. Plan to go home and rest for the day. 2. Generally the only restriction on your activity is no lifting, pulling or pushing more then 20 lb for 4 weeks. You may feel fatigued for 2-4 weeks. 3 After you arrive home you may have a light meal and return to a normal diet as you can tolerate it without feeling sick to your stomach. 4. After surgery, you may feel pain or discomfort. Take the medications as prescribed. 5. If there are any questions regarding the findings of your procedure, please feel free to contact your doctor. 6. If you are unable to contact your doctor with a problem, contact the hospital at [phone]. 7. Continue all your regular medications unless directed otherwise. 8. You are being prescribed a Narcotic pain medication. Narcotic pain medications have an addiction potential for everyone. It is important that you take the medication as prescribed There is a limit on how many tablets we can prescribed, this has been decided by the state Please keep the medications in a secure place and do not let anyone know you have them at home If you have medication left over please discard them by crushing them in a little water and mixing in used coffee grounds or cat litter and putting in the trash. I understand the above instructions and have no questions. Signature of Patient or Responsible Adult Escort Date/Time Name of Responsible Adult Escort Signature of Nurse Date/Time Referrals: Fozia Medina MD [ [facility] STAFF PHYSICIAN] - 07/14/18 2:00 pm Amos Guevara MD [Primary Care Provider] - (1-2 weeks for BP recheck as you are running low and are having dizziness.) Activity:: No lifting, pushing or pulling >20 lb x 2 weeks Diet:: low fat for 2 weeks Discharge Orders Discharge Orders: Discharge Order (Routine); Ordered 07/02/18 Ordered By: Fozia Medina DS: Diagnosis Discharge Diagnosis (1) Biliary acute pancreatitis without necrosis or infection: Status: Acute (2) S/P laparoscopic cholecystectomy: Status: Acute
[2018-07-02] MEDS: Lactated Ringers 1,000 ML 80 ML IV ×2 (06:56→08:36)
[2018-07-02 07:16] LABS: ALT 18 U/L (12-78); AST 14 U/L (15-37); Albumin 3.3 g/dL (3.4-5.0); Alkaline Phosphatase 110 U/L (46-116); Anion Gap 10.1 mmol/L (3-11); BUN 21 mg/dL (7-18); Bilirubin, Total 0.6 mg/dL (0.2-1.0); CO2 26.9 mmol/L (21.0-32.0); CREATININE 1.21 mg/dL (0.70-1.30); Calcium 9.3 mg/dL (8.5-10.1); Chloride 101 mmol/L (98-107); Glucose 154 mg/dL (70-100); Lipase 184 U/L (73-393); Potassium 3.7 mmol/L (3.5-5.1); Sodium 138 mmol/L (136-145); Total Protein 7.3 g/dL (6.4-8.2)
[2018-07-02] MEDS: AMPICILLIN/SULBACTAM 3 GM in Normal Saline 100 ML IVPB (07:43)
[2018-07-02] MEDS: IOHEXOL 50 ML 23 ML (08:52)
--- NOTE | 2018-07-02 09:06 | DI.RAD_ITS ---
SYMPTOMS/DIAGNOSIS: GALLSTONE PANCREATITIS OPERATIVE CHOLANGIOGRAM: Fluoroscopy Time: 38.4 sec 19.82 mGy A single image of the right upper quadrant was obtained during an OR cholangiogram. There is apparent faint opacification of the gallbladder. The visualized portions of the common duct appear grossly normal. Please see Dr. Medina's procedure report for further information.
--- NOTE | 2018-07-02 09:21 | GB_PTH ---
PATIENT: Terry Luz LOC: [facility] U#:[id number] AGE/SX: 58/M ROOM: RE07/02/[address]: Fozia Medina MD : 1960 BED: DIS: 07/02/2018 SPEC #: [id number] RECD: 07/02/18 13:01 STATUS: CEZAR REJorge #: [id number] DEDE: 07/02/18 09:[address]: Fozia Medina DEPT: Surgical Specimen RECD BY: Autumn Medina ENTERED: 07/02/18 13:02 SP TYPE: GB OTHR DR: Amos Guevara Tissues: 1 - GALLBLADDER Procedures: GROSS AND MICRO LEVEL 3 Comments: [id number]
[2018-07-02] MEDS: Lidocaine 1% Pres-Free 5 ML VIAL (09:34)
--- NOTE | 2018-07-02 10:07 | ROE_ITS ---
Date of service: 07/02/18 Time of Service: 09:52 Operative Note DATE OF PROCEDURE: 07/02/18 PRE-OP DIAGNOSIS: Gallstone Pancreatitis POST-OP DIAGNOSIS: same PROCEDURE: Laparoscopic Cholecystectomy with attempted cholangiogram SURGEON: Fozia Medina PULVERIZING AND SIFTING OPERATOR: Annamarie Vazquez ANESTHESIA: GETA (Brandy Luciano CRNA) ESTIMATED BLOOD LOSS: 50 PATHOLOGY: other (Gallbladder and stones) COMPLICATIONS: None Patient was transported to: PACU Patient's condition: stable Indications: Mr. Luz is a pleasant 58-year-old gentleman who was admitted about 8 weeks ago with acute gallstone pancreatitis. He was seen in the office a few times to make sure that his white blood cell count was normal his C- reactive protein was down to normal and that he was eating without pain. Risks benefits and complications of a Laparoscopic Cholecystectomy with intraoperative cholangiogram were reviewed with him. His questions were answered to his satisfaction and he wished to proceed. No guarantees were given or implied. Findings: Gallbladder looked fairly normal. There was a large stone stuck in the neck of the gallbladder. Adhesions of omentum were noted. When the duct was cut there was free flow of bile. Cholangiogram was attempted twice once the catheter fell out and the dye went into the belly the second time it was flowing easily into the duct but we could not get an appropriate picture to come up. At this point with bile flowing freely I decided to go ahead with Laparoscopic Cholecystectomy and not attempt a third cholangiogram. Procedure Description: The patient was taken to the operating room and placed in a supine position. SCDs were applied as well as monitors. He was then sedated and intubated by Brandy Luciano CRNA without difficulty. Ospina catheter was then placed in a standard sterile fashion. His abdomen was then clipped and prepped and draped in a sterile surgical fashion with chlorhexidine. 1% lidocaine mixed with half percent Marcaine was then injected above the umbilicus and a small 5 mm incision was. The skin was grasped on either side with a sharp towel clamp and pulled up while a 5 mm Visiport was placed under direct visualization into the abdomen without difficulty. The abdomen was then insufflated. 3 more ports were then placed under direct visualization. An 11 mm port was placed in the subxiphoid area, and 2 5 mm ports were placed in the right upper quadrant. Patient's head was then placed in a reverse Trendelenburg position and he was tilted to the left to allow better visualization of the gallbladder. Omentum was noted to be stuck to the gallbladder and this was removed using both a Maryland dissector and cautery as well as the MEGHAN Harmonic. Once the neck of the gallbladder was visualized a large stone was noted in the neck of the gallbladder. The stone was gently dislodged with the Maryland dissector so that I could grasp the neck of the gallbladder. A clip was placed and a small incision was made in the cystic duct. The cystic artery was then identified dissected 365 degrees and clipped one proximal and 2 distal and then cut. Next the cholangiogram catheter was placed into the cystic duct and clamped in place dye was injected and unfortunately the catheter fell out. The catheter was again placed back into the duct and irrigated with a little saline which flowed easily and then dye was injected unfortunately we could not see it on the screen even though the dye was flowing easily there was no contrast at all on the screen itself so we felt that there was an issue with the monitor. At this point I did not want to hold up the case and so the catheter was removed and 2 more clips were placed underneath the cut on the cystic duct. The duct was then cut completely. The gallbladder was then dissected using the harmonic scalpel as well as the Maryland dissector and cautery. The right hepatic artery was identified and was being pulled up towards the gallbladder it was gently dissected away from the gallbladder without injury. One accessory cystic artery was identified coming off of the right hepatic and this was clipped one proximal and one distal and cut. Once the gallbladder was completely dissected away from the liver bed it was placed into an Endo bag. The bag was removed through the 11 mm millimeter port site. I did have to increase the size of the port site due to the size of the stone. Once the bag and gallbladder were removed the 11 mm port was placed back into the incision and a towel clamp was placed around it to keep the insufflation from escaping. A Ray-Ty was then placed through the 11 mm port site and the liver bed was irrigated thoroughly no bleeding was noted from the liver bed. The clips were then identified again on the 2 cystic arteries as well as the cystic duct no bile leak was identified and no bleeding. Once the effluent was clear the rest of the local anesthetic was injected above the liver bed to help with postoperative shoulder pain. The right upper quadrant 5 mm ports were then removed and then the 11 mm port was removed under direct visualization. There was no bleeding noted from the fascia. The last 5 mm port was removed and the abdomen was completely deflated. The fascia of the 11 mm port site was closed with a 0 Vicryl [id number] suture. The skin was closed with 4-0 Vicryl. The other 3 port sites were also closed with 4-0 Vicryl. The skin was cleaned and dried and skin affix was applied. Patient was woken up and extubated and taken back to recovery in stable condition. Sponge instrument and needle counts were correct at the end of the case x2. This operative note was dictated with Awilda so there may be some mistakes.
[2018-07-02] MEDS: Normal Saline Flush 10 ML SYR IV (12:04)
[2018-07-02] MEDS: Ibuprofen 600 MG TAB PO (12:36)
== END 2018-07-02 13:20 | disposition home or self-care (01) ==
PROVIDERS: PCP Internal Medicine; Visit Provider Surgery
PROC: 0FT44ZZ Resection of Gallbladder, Percutaneous Endoscopic Approach (ICD-10-PCS; CPT 47563; principal; 2018-07-02 07:30)
DX: K85.10 Biliary acute pancreatitis without necrosis or infection (principal); K80.10 Calculus of gallbladder with chronic cholecystitis without obstruction; E11.9 Type 2 diabetes mellitus without complications; I10 Essential (primary) hypertension
CPT/HCPCS: 47563; 36415; 80053; 83690; 74300; 88304; J0131; J0295; J1100; J1885; J2405; Q9967

== ENCOUNTER 2019-07-09 17:08 | Outpatient (REF) | payer BC, SELFPAY ==
[2019-07-09 21:54] LABS: COMMENT (LAB VIEW ONLY) 108.53 mg/dL; Prot/Crea Ur Ratio 0.09
== END 2019-07-09 17:28 ==
LOC: NCHCN 17:08
PROVIDERS: PCP Internal Medicine; Visit Provider Internal Medicine
DX: I10 Essential (primary) hypertension (principal); R80.9 Proteinuria, unspecified; D72.829 Elevated white blood cell count, unspecified
CPT/HCPCS: 82565; 84156

== ENCOUNTER 2020-09-14 18:43 | Outpatient (REF) | payer OTHER, SELFPAY ==
[2020-09-14 20:56] LABS: HCT 39.7 % (40.0-50.0); HGB 13.4 g/dL (13.5-17.5); MCH 32.5 pg (27.0-33.0); MCHC 33.8 % (32.0-36.0); MCV 96.4 fL (80-95); MPV 9.7 fL (8.0-11.0); Platelet Count 324 10^3/uL (130-400); RBC 4.12 10^6/uL (4.36-5.78); RDW 11.2 % (11.8-14.1); RDW-SD 40.2 fL; WBC 7.91 10^3/uL (4.4-10.8)
[2020-09-14 20:59] LABS: Anion Gap 7.9 mmol/L (3-11); BUN 24 mg/dL (7-18); CO2 27.1 mmol/L (21.0-32.0); CREATININE 1.21 mg/dL (0.70-1.30); Calcium 9.1 mg/dL (8.5-10.1); Calculated LDL 70 mg/dL (<100); Chloride 103 mmol/L (98-107); Cholesterol 137 mg/dL (<200); Glucose 77 mg/dL (74-106); HDL Cholesterol 50 mg/dL (40-60); Potassium 4.1 mmol/L (3.5-5.1); Sodium 138 mmol/L (136-145); Triglyceride 89 mg/dL (<150)
== END 2020-09-14 19:03 ==
LOC: NCHCN 18:43
PROVIDERS: PCP Internal Medicine; Visit Provider Internal Medicine
DX: I10 Essential (primary) hypertension (principal); E78.5 Hyperlipidemia, unspecified; D64.9 Anemia, unspecified; F41.8 Other specified anxiety disorders
CPT/HCPCS: 80048; 80061; 85027

== ENCOUNTER 2021-11-05 14:56 | Outpatient (CLI) | payer OTHER, SELFPAY ==
--- NOTE | 2021-11-05 14:15 | DI.RAD_ITS ---
Exam(s) XR SHOULDER LT COMPLETE 2+V EXAM: XR SHOULDER LT COMPLETE 2+V CLINICAL HISTORY: shoulder pain. TECHNIQUE: 2D digital imaging was performed. COMPARISON: No exams were available for comparison FINDINGS: BONES: No acute fracture is present. No bony destructive lesion is seen. JOINTS: No dislocation present. Mild spurring at the AC joint. Glenohumeral joint spaces well maint ained. There is mild spurring at the glenoid. 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 DATA REPOSITORY: RADIATION DOSE DELIVERED:
--- NOTE | 2021-11-05 14:15 | DI.RAD_ITS ---
Exam(s) XR SHOULDER RT COMPLETE 2+V EXAM: XR SHOULDER RT COMPLETE 2+V CLINICAL HISTORY: shoulder pain. TECHNIQUE: 2D digital imaging was performed. Three views COMPARISON: CR XR SHOULDER LT COMPLETE 2+V from 11/05/2021 FINDINGS: BONES: No acute fracture is present. No bony destructive lesion is seen. JOINTS: No dislocation present. Significant spurring at the AC joint. Glenohumeral joint space is w ell maintained. SOFT TISSUE: Tiny calcifications superior to the greater tuberosity could represent tendon calcificat ion. IMPRESSION: AC joint degenerative changes. Mild calcific tendinosis. DATA REPOSITORY: RADIATION DOSE DELIVERED:
== END 2021-11-05 14:57 | disposition home or self-care (01) ==
LOC: DIORS 14:57
PROVIDERS: PCP Internal Medicine; Visit Provider Physician Assistant
DX: M25.511 Pain in right shoulder (principal); M25.512 Pain in left shoulder; M19.011 Primary osteoarthritis, right shoulder; M19.012 Primary osteoarthritis, left shoulder; M75.31 Calcific tendinitis of right shoulder; M75.32 Calcific tendinitis of left shoulder
CPT/HCPCS: 73030

== ENCOUNTER 2022-11-19 16:54 | Outpatient (REF) | payer OTHER, SELFPAY ==
[2022-11-19 21:00] LABS: Anion Gap 6.6 mmol/L (3-11); BUN 20 mg/dL (7-18); CO2 28.4 mmol/L (21.0-32.0); CREATININE 1.1 mg/dL (0.70-1.30); Calcium 9.4 mg/dL (8.5-10.1); Chloride 104 mmol/L (98-107); Estimated GFR 76.37 (mL/min/1.73m2); Glucose 80 mg/dL (74-106); Potassium 4.1 mmol/L (3.5-5.1); Sodium 139 mmol/L (136-145)
[2022-11-19 21:04] LABS: Hemoglobin A1C 4.7 % (<5.7)
== END 2022-11-19 16:55 | disposition home or self-care (01) ==
LOC: NCHCN 16:54
PROVIDERS: PCP Internal Medicine; Visit Provider Family Medicine
DX: Z00.00 Encounter for general adult medical examination without abnormal findings (principal); I10 Essential (primary) hypertension; R73.03 Prediabetes
CPT/HCPCS: 80048; 83036

== ENCOUNTER 2023-11-26 11:17 | Outpatient (REF) | payer OTHER, SELFPAY ==
[2023-11-26 14:33] LABS: HCT 44.1 % (40.0-50.0); MCH 30.9 pg (27.0-33.0); MCHC 31.7 % (32.0-36.0); MCV 97 fL (80-95); MPV 9.4 fL (8.0-11.0); Platelet Count 370 10^3/uL (130-400); RBC 4.53 10^6/uL (4.36-5.78); RDW 11.9 % (11.8-14.1); RDW-SD 42.8 fL; WBC 7.48 10^3/uL (4.4-10.8)
[2023-11-26 14:54] LABS: ALT 26 U/L (16-63); AST 32 U/L (15-37); Albumin 3.8 g/dL (3.4-5.0); Alkaline Phosphatase 102 U/L (46-116); Anion Gap 6.8 mmol/L (3-11); BUN 21 mg/dL (7-18); Bilirubin, Total 0.6 mg/dL (0.2-1.0); CO2 28.2 mmol/L (21.0-32.0); CREATININE 1.1 mg/dL (0.70-1.30); Calcium 9.5 mg/dL (8.5-10.1); Chloride 104 mmol/L (98-107); Glucose 108 mg/dL (74-106); LDL CHOLESTEROL 65 mg/dL (<100); Potassium 4.9 mmol/L (3.5-5.1); Sodium 139 mmol/L (136-145)
[2023-11-26 14:55] LABS: Hemoglobin A1C 4.9 % (<5.7)
== END 2023-11-26 11:18 | disposition home or self-care (01) ==
LOC: NCHCN 11:17
PROVIDERS: PCP Internal Medicine; Visit Provider Family Medicine
DX: Z00.00 Encounter for general adult medical examination without abnormal findings (principal)
CPT/HCPCS: 80053; 83721; 85027; 83036

== ENCOUNTER 2024-07-02 10:38 | Observation (INO) | payer OTHER, SELFPAY ==
[2024-07-02] VITALS (19 sets, daily range): BP systolic 113–161; BP diastolic 65–84; PULSE 61–97; RESP 13–27; TEMP 36.9–37.1; O2SAT 93–99
--- NOTE | 2024-07-02 11:00 | RT.EKG_ITS ---
APPROVED REPORT Exam: Resting ECG Reason for Exam: abd pain Patient Location: E HR:81 bpm ECG Measurements Heart Rate 81 AXIS RI 170 P 34 QRSd 95 QRS -20 QT 366 T 56 QTc 425 Conclusion Sinus rhythm 81 normal axis no stemi
[2024-07-02 11:34] LABS: Abs Immature Grans 0.02 10^3/uL (0.0-0.06); Absolute Basophil Count 0.02 10^3/uL (0.0-0.2); Absolute Eosinophil Count 0.16 10^3/uL (0.0-0.7); Absolute Lymphocyte Count 1.15 10^3/uL (1.2-3.4); Absolute Monocyte Count 0.68 10^3/uL (0.1-0.8); Absolute Neutrophil Count 7.76 10^3/uL (1.2-6.7); Basophils % 0.2 %; Eosinophils % 1.6 %; HCT 45.5 % (40.0-50.0); Immature Grans % 0.2 %; Lymphocytes % 11.7 %; MCH 30.4 pg (27.0-33.0); MCV 92 fL (80-95); MPV 9.3 fL (8.0-11.0); Monocytes % 6.9 %; Neutrophils % 79.4 %; Platelet Count 321 10^3/uL (130-400); RBC 4.94 10^6/uL (4.36-5.78); RDW 12.3 % (11.8-14.1); RDW-SD 41.9 fL; WBC 9.79 10^3/uL (4.4-10.8)
[2024-07-02] MEDS: Ketorolac 15 MG/ML VIAL 10 MG IVP (11:34)
[2024-07-02 11:54] LABS: Albumin 3.5 g/dL (3.4-5.0); Alkaline Phosphatase 404 U/L (46-116); Anion Gap 11.6 mmol/L (3-11); BUN 14 mg/dL (7-18); Bilirubin, Total 4.98 mg/dL (0.2-1.0); CO2 26.4 mmol/L (21.0-32.0); CREATININE 1.3 mg/dL (0.70-1.30); Calcium 9.4 mg/dL (8.5-10.1); Chloride 104 mmol/L (98-107); Estimated GFR 61.73 (mL/min/1.73m2); Glucose 135 mg/dL (74-106); Potassium 3.5 mmol/L (3.5-5.1); Sodium 142 mmol/L (136-145); Total Protein 7.7 g/dL (6.4-8.2); Troponin I 9 ng/L (<or=76)
[2024-07-02 11:55] LABS: AST 950 U/L (15-37); Lipase > 375 U/L (16-77)
[2024-07-02 12:13] LABS: ALT 1152 U/L (16-63)
[2024-07-02 12:30] LABS: ESR 36 mm/hr (0-20)
--- NOTE | 2024-07-02 12:30 | DI.MRI_ITS ---
Exam(s) MR ABDOMEN WO EXAM: MR ABDOMEN WO CLINICAL HISTORY: Ruq pain, concerned for stone, prior kyrie TECHNIQUE: Multiplanar multisequence MRI of the Abdomen was performed. MRCP sequences also performed. CT CT ABDOMEN PELVIS W from 07/02/2024 FINDINGS: Lung bases. Trace left pleural effusion. Left posterior lower lobe fat containing diaphragmatic her avi. Liver: Unremarkable. Gallbladder: Unremarkable. Bile Ducts: Minimal intrahepatic biliary dilatation common bile duct measures 7 millimeters. The sma ll stones noted on CT is not visible on the current exam. Proximal pancreatic duct measures 5 millim eters. Pancreas: Enlargement of the head and surrounding inflammation. No pseudocyst. Adrenals: Unremarkable. Kidneys: Unremarkable. Spleen: Unremarkable. Aorta: Unremarkable. Soft Tissues: Unremarkable. Bone: Unremarkable. Lymph Nodes: Unremarkable. Mesentery: Edema around the pancreas and mesenteric fat. No ascites. No focal fluid collection. Bowel: No abnormal dilatation or wall thickening. IMPRESSION: Inflammation around the pancreas, consistent with pancreatitis as seen on CT. Noted at distal common bile duct on CT is not visible on this exam. This could be secondary to techn ical factors such as motion and large slice thickness. No significant common bile duct dilatation. Mild dilatation of proximal pancreatic duct. Findings called to Dr. Queen, ER provider. DATA REPOSITORY:
[2024-07-02] MEDS: Normal Saline - Diluent 50 ML VIAL IJ (12:31)
[2024-07-02] MEDS: Omnipaque 350 MG/ML 100 ML BTL IJ (12:41)
[2024-07-02 12:42] LABS: C-Reactive Protein 1.18 mg/dL (<or=0.5)
--- NOTE | 2024-07-02 12:44 | DI.CT_ITS ---
Exam(s) CT ABDOMEN PELVIS W EXAM: CT ABDOMEN PELVIS W CLINICAL HISTORY: abd pain. TECHNIQUE: Imaging Protocol: Axial computed tomography images with coronal and sagittal reformatted images were created and reviewed CONTRAST MATERIAL: Intravenous: Omnipaque 350 Contrast volume:100 ml Oral: no FINDINGS: ABDOMEN and PELVIS: Exam mildly limited by motion. Lung Bases: Atelectasis left lung base. Large fatty containing are left diaphragmatic hernia noted. A trace left pleural effusion. Liver: Normal density. No suspicious mass. Gallbladder and biliary tract: Status post cholecystectomy question of a 3 millimeter stone at the di stal common bile duct. A common bile duct measures 8 millimeters maximally at the level of the wendy hepatis. It measures 5 millimeters in the pancreatic head. Pancreas: The head appears enlarged.. No abnormal calcifications. Inflammation noted around the hea d of the pancreas and adjacent mesenteric fat. No evidence of pseudocyst. No evidence of mass. Spleen: Normal. Kidneys: Normal size, contour and axis. No radiodense stones. No obstructive uropathy. No suspicious masses seen. Adrenal glands: No masses seen. Vasculature: Abdominal aorta non-dilated. Soft tissues: Small fatty containing umbilical hernia. Bladder: No gross wall thickening. No calculi.No focal mass. Bowel: No obstruction. Inflammation of duodenum adjacent to pancreas. Appendix normal. Peritoneal cavity: No ascites. No focal collection. No mesenteric inflammatory response. Bones: Degenerative changes and mild scoliosis. Reproductive organs: Unremarkable. Lymph nodes: No pathologically enlarged lymph nodes. IMPRESSION:: Findings consistent with acute pancreatitis. There is adjacent inflammation of the duo denum. There is a probable 3 millimeter stone at the distal common bile duct with minimal biliary di latation. Findings called to Dr. Queen of the emergency department. RADIATION DOSE DELIVERED: Total DLP DATA REPOSITORY: All CT scans at this facility are submitted to the National Radiology Data Registry (NRDR) Dose Index Registry (DIR) with the [employer] [place] [employer] (ACR). RADIATION OPTIMIZATION: All CT scans at this facility use at least one of these dose optimization te chniques: automated exposure control; mA and/or kV adjustment per patient size (includes targeted exa ms where dose is matched to clinical indication); or iterative reconstruction.
[2024-07-02 12:51] LABS: LDH 356 U/L (85-227)
--- NOTE | 2024-07-02 13:13 | ED.GENADUL_ITS ---
Discharge Plan Discharge Details Chief Complaint: Abd Prob Primary Care Provider: Amos Guevara ED Provider: Goldie Queen Home Meds and New Rx's Prescriptions: No Action losartan 100 mg tablet 100 mg PO DAILY sertraline 100 MG tablet 100 mg PO DAILY atorvastatin 40 mg Tablet 40 mg PO DAILY spironolactone 25 mg Tablet 25 mg PO DAILY acetaminophen [Tylenol 8 Hour] 650 mg tablet extended release 650 mg PO Q6H PRN PRN (Reason: pain) Qty: 30 0RF ibuprofen 600 mg tablet 600 mg PO QID PRN (Reason: pain) Qty: 30 0RF HPI General Date/Time Provider Initiated Documentation: 07/02/24 10:47 . Limitations to Documentation: no limitations . Information obtained by: patient . HPI Narrative: 64-year-old gentleman with past medical history of gallstone pancreatitis, status post cholecystectomy in 2018 presents for evaluation of epigastric and right upper quadrant abdominal pain. Reports that symptoms have been ongoing for the last week.. No fever. No diarrhea. Reports that pain significantly worsened last night. It was associated with vomiting. He has not noticed any c olor change of skin or eyes, but has noticed that his stools appear pale. He reports that the pain feels exactly like gallstone pain. He denies any chest pain or shortness of breath. Related Data Home Medications ?Medication ?Instructions ?Recorded ?Confirmed sertraline 100 mg tablet 100 mg PO DAILY 10/04/13 07/02/24 atorvastatin 40 mg tablet 40 mg PO DAILY 05/11/18 07/02/24 spironolactone 25 mg tablet 25 mg PO DAILY 05/11/18 07/02/24 acetaminophen 650 mg 650 mg PO Q6H PRN PRN pain #30 tabs 07/02/18 07/02/24 tablet,extended release (Tylenol 8 Hour) ibuprofen 600 mg tablet 600 mg PO QID PRN pain #30 tabs 07/02/18 07/02/24 losartan 100 mg tablet 100 mg PO DAILY 09/19/21 07/02/24 Previous Rx's ?Medication ?Instructions ?Recorded acetaminophen 650 mg 650 mg PO Q6H PRN PRN pain #30 tabs 07/02/18 tablet,extended release (Tylenol 8 Hour) ibuprofen 600 mg tablet 600 mg PO QID PRN pain #30 tabs 11/01/18 Allergies Allergy/AdvReac Type Severity Reaction Status Date / Time lisinopril (From Prinivil) AdvReac Unknown Verified 07/02/24 10:45 General Stated Complaint: Abd Prob CHRISTIANO: 3 Exam Narrative Exam Narrative: Review of Systems: All systems reviewed & are unremarkable except as noted in HPI and below Well-developed, no acute distress NCAT PERRL, normal conjunctiva no appreciable sclearal icterus RRR, no murmu Unlabored respiratory effort, CTAB Nondistended abdomen , + epigastric and RUQ tenderness, no CVTA no focal neurologic deficits Course Vital Signs Vital signs: Vital Signs Temperature 37.1 C 07/02/24 10:39 Pulse 97 H 07/02/24 10:39 Respiratory Rate 16 07/02/24 10:39 Blood Pressure 126/84 07/02/24 10:39 Pulse Oximetry 93 07/02/24 10:39 Temperature 37.1 C 07/02/24 11:35 Temperature Source Temporal Artery Scan 07/02/24 11:35 Pulse 97 H 07/02/24 11:35 Respiratory Rate 16 07/02/24 11:35 Respiratory Effort Normal, Non-Labored 07/02/24 10:45 Blood Pressure 126/84 07/02/24 11:35 Blood Pressure Position Sitting 07/02/24 11:35 Pulse Oximetry 93 07/02/24 11:35 Oxygen Delivery Method Room Air 07/02/24 11:35 Oxygen Flow Rate 0 07/02/24 11:35 Pain Level 5 07/02/24 11:35 Lab/Test Results Lab/Test Results: Laboratory Tests Range/Units 07/02/24 07/02/24 11:29 12:25 WBC (4.4-10.8) 10^3/uL 9.79 RBC (4.36-5.78) 10^6/uL 4.94 Hgb (13.5-17.5) g/dL 15.0 Hct (40.0-50.0) % 45.5 MCV (80-95) fL 92 MCH (27.0-33.0) pg 30.4 MCHC (32.0-36.0) % 33.0 RDW (11.8-14.1) % 12.3 Plt Count (130-400) 10^3/uL 321 MPV (8.0-11.0) fL 9.3 Immature Gran % % 0.2 Neutrophils % % 79.4 Lymphocytes % % 11.7 Monocytes % % 6.9 Eosinophils % % 1.6 Basophils % % 0.2 Nucleated RBC % (0.0-0.3) % 0.0 Absolute Neutrophils (1.2-6.7) 10^3/uL 7.76 H Absolute Lymphocytes (1.2-3.4) 10^3/uL 1.15 L Absolute Monocytes (0.1-0.8) 10^3/uL 0.68 Absolute Eosinophils (0.0-0.7) 10^3/uL 0.16 Absolute Basophils (0.0-0.2) 10^3/uL 0.02 ESR (0-20) mm/hr 36 H Sodium (136-145) mmol/L 142 Potassium (3.5-5.1) mmol/L 3.5 Chloride (98-107) mmol/L 104 Carbon Dioxide (21.0-32.0) mmol/L 26.4 Anion Gap (3-11) mmol/L 11.6 H BUN (7-18) mg/dL 14 Creatinine (0.70-1.30) mg/dL 1.3 Est GFR (CKD-EPI 2020) (mL/min/1.73m2) 61.73 Glucose (74-106) mg/dL 135 H Calcium (8.5-10.1) mg/dL 9.4 Magnesium (1.8-2.4) mg/dL 2.0 Total Bilirubin (0.2-1.0) mg/dL 4.98 H AST (15-37) U/L 950 H ALT (16-63) U/L 1152 H Alkaline Phosphatase (46-116) U/L 404 H Lactate Dehydrogenase (85-227) U/L 356 H Troponin I (<or=76) ng/L 9 C-Reactive Protein (<or=0.5) mg/dL 1.18 H Total Protein (6.4-8.2) g/dL 7.7 Albumin (3.4-5.0) g/dL 3.5 Lipase (16-77) U/L > 375 H Medical Decision Making Emergent evaluation of epigastric abdominal pain. Initial differential includes pancreatitis, [place] stone, gastritis. Less likely bowel obstruction. Would also consider renal stone but his symptoms are more likely to be in the front. Does not have any chest pain or shortness of breath concerning for possible cardiac etiology. EKG reviewed and independently interpreted: Sinus 81 normal axis no STEMI. Plan for lab work, CT imaging of the abdomen pelvis and pain control. 1145 Lab work reviewed. There is no leukocytosis or anemia. He does have a slight shift. There is concern for acute pancreatitis with his lipase at the upper limit of our readable range. He also has elevation in his liver function that is new. His bilirubin is also concerning light elevated at 5. I have added additional lab work for further evaluation of acute pancreatitis. I discussed with Dr. Dean who does recommend MRCP given the elevated bilirubin. [address] findings with radiologist. There is concern for acute pancreatitis without any abscess or phlegmon. There is a questionable 3 mm stone at the distal common bile duct. Will get MR CP to further evaluate. At this time patient is hemodynamically stable and pain free. 1310 Discussed admission with hospitalist Dr Herrera. He is unclear on the clinical management of acute pancreatitis and would like to consult with [facility] prior to accepting this patient for admission. 1435 Discussed with radiologist, MRCP does not demonstrate stone. Have updated Dr jones on the findings. 1545 Will be admitted here for further management. Quality:SDOH Health Related Social Needs: No Data to Display PFSH All Active Problems Calcific tendonitis of right shoulder (Acute) Calcific tendinitis of left shoulder (Acute) Trigger finger, left ring finger (Acute) Injection: 11/05/2021 Depression with anxiety (Acute) S/P laparoscopic cholecystectomy (Acute ~07/02/18) Biliary acute pancreatitis without necrosis or infection (Acute) Encounter for postoperative care (Chronic) Back pain (Acute) Back pain due to injury (Acute) Wheezing on auscultation (Acute) Constipation (Acute) Insomnia (Acute) Acute renal insufficiency (Acute) Medical History Anemia IBS (irritable bowel syndrome) Morbid obesity with BMI of 45.0-49.9, adult Acute gallstone pancreatitis Hyperlipidemia Diabetes type 2, controlled Essential hypertension Surgical History History of tonsillectomy Social History Smoking/Tobacco Use Status: Never Smoking risk assessment performed?: Yes Alcohol Intake: current Alcohol Intake frequency: holidays/special occasions only Alcohol type: beer, wine and hard liquor Drug use: Never Substance use type: does not use Household members: spouse Housing: house 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
[2024-07-02] MEDS: DEXTROSE 5%-0.9% SALINE 1,000 ML 125 ML IV (16:00)
--- NOTE | 2024-07-02 16:18 | W.PC.ACHO ---
Registration Status: Primary Language: Preferred Language: ED Information & Data Chief Complaint Abd Prob 07/02/24 13:14 Triage Note last friday woke up with 07/02/24 10:39 sharp stomach pain, similar to gall stone attacks in the past. few episodes of vomiting. has had a few episodes off and on throughout the week, worsening since yesterday. pale color stools, dark urine. pain in back near R shoulder blade since yesterday. denies chest pain , SOB. took 3 advil around 8am. gallbladder removed 5 years ago Medical / Surgical History (Last Reviewed 07/02/24 @ 13:42 by Goldie Queen MD) Anemia IBS (irritable bowel syndrome) Morbid obesity with BMI of 45.0-49.9, adult Acute gallstone pancreatitis Hyperlipidemia Diabetes type 2, controlled Essential hypertension (Last Reviewed 07/02/24 @ 13:42 by Goldie Queen MD) History of tonsillectomy Most Recent Vital Signs Temperature 37.1 C 07/02/24 11:35 Temperature Source Temporal Artery Scan 07/02/24 11:35 Pulse 78 07/02/24 16:05 Respiratory Rate 18 07/02/24 16:05 Respiratory Effort Normal 07/02/24 12:50 Respiratory Depth Normal 07/02/24 12:50 Respiratory Pattern Normal 07/02/24 12:50 Blood Pressure 127/78 07/02/24 16:05 Blood Pressure Position Sitting 07/02/24 11:35 Pulse Oximetry 96 07/02/24 16:05 Oxygen Delivery Method Room Air 07/02/24 16:05 Oxygen Flow Rate 0 07/02/24 16:05 Pain Level 5 07/02/24 11:35 Allergies lisinopril (From Prinivil) Adverse Reaction (Verified 07/02/24 10:45) Unknown Precautions Isolation Standard precaution 07/02/24 10:45 Active Medications Generic Name Dose Route Start Last Admin Trade Name Freq PRN Reason Stop Dose Admin Dextrose/Sodium Chloride 1,000 mls @ 125 mls/hr 07/02/24 15:45 07/02/24 16:00 Dextrose 5%-Ns IV 125 mls/hr INFUSION GILBERTO Administration Iohexol 100 ml 07/02/24 12:45 07/02/24 12:41 Omnipaque 350 Mg/Ml 100 Ml Btl IJ 08/01/24 23:59 100 ml DIRECTED GILBERTO Administration Sodium Chloride 50 ml 07/02/24 12:45 07/02/24 12:31 Normal Saline - Diluent 50 Ml Vial IJ 50 ml .FOR DI USE GILBERTO Administration IV IV Catheter Type [Right Saline Lock Forearm] IV Catheter Gauge [Right 18 Forearm] Diet Orders Category Date Time Status npo [Nothing Per Oral] [DIET] Nutrition 07/02/24 Dinner Active Diagnostics 07/02/24 07/02/24 07/02/24 Range/Units 12:25 11:29 10:50 WBC 9.79 (4.4-10.8) 10^3/uL RBC 4.94 (4.36-5.78) 10^6/uL Hgb 15.0 (13.5-17.5) g/dL Hct 45.5 (40.0-50.0) % MCV 92 (80-95) fL MCH 30.4 (27.0-33.0) pg MCHC 33.0 (32.0-36.0) % RDW 12.3 (11.8-14.1) % Plt Count 321 (130-400) 10^3/uL MPV 9.3 (8.0-11.0) fL Immature Gran % 0.2 % Neutrophils % 79.4 % Lymphocytes % 11.7 % Monocytes % 6.9 % Eosinophils % 1.6 % Basophils % 0.2 % Nucleated RBC % 0.0 (0.0-0.3) % Absolute Neutrophils 7.76 H (1.2-6.7) 10^3/uL Absolute Lymphocytes 1.15 L (1.2-3.4) 10^3/uL Absolute Monocytes 0.68 (0.1-0.8) 10^3/uL Absolute Eosinophils 0.16 (0.0-0.7) 10^3/uL Absolute Basophils 0.02 (0.0-0.2) 10^3/uL ESR 36 H (0-20) mm/hr Sodium 142 (136-145) mmol/L Potassium 3.5 (3.5-5.1) mmol/L Chloride 104 (98-107) mmol/L Carbon Dioxide 26.4 (21.0-32.0) mmol/L Anion Gap 11.6 H (3-11) mmol/L BUN 14 (7-18) mg/dL Creatinine 1.3 (0.70-1.30) mg/dL Est GFR (CKD-EPI 2020) 61.73 (mL/min/1.73m2) Glucose 135 H (74-106) mg/dL Calcium 9.4 (8.5-10.1) mg/dL Magnesium 2.0 (1.8-2.4) mg/dL Total Bilirubin 4.98 H (0.2-1.0) mg/dL AST 950 H (15-37) U/L ALT 1152 H (16-63) U/L Alkaline Phosphatase 404 H (46-116) U/L Lactate Dehydrogenase 356 H (85-227) U/L Troponin I 9 (<or=76) ng/L C-Reactive Protein 1.18 H (<or=0.5) mg/dL Total Protein 7.7 (6.4-8.2) g/dL Albumin 3.5 (3.4-5.0) g/dL Lipase > 375 H (16-77) U/L Urine Color Pending Urine Clarity Pending Urine pH Pending Ur Specific [place] Pending Urine Protein Pending Urine Ketones Pending Urine Blood Pending Urine Nitrite Pending Urine Bilirubin Pending Urine Urobilinogen Pending Ur Leukocyte Esterase Pending Urine Glucose Pending Intake and Output - 24 Hour Total 07/02/24 10:38 thru 07/02/24 11:28 Intake Total 20 Balance 20 Weight 122.47 kg Intake: IV 20 Falls Risk Assessment History of Falls No History 07/02/24 11:35 Contributing Factors No Factors 07/02/24 11:35 Ambulatory Aids Independent 07/02/24 11:35 Tubes/Lines None 07/02/24 11:35 Gait Evaluation No gait disturbance 07/02/24 11:35 Cognition No cognitive impairment 07/02/24 11:35 Fall Total Score 0 07/02/24 11:35 Level of Risk Standard/Low Risk 07/02/24 11:35 v v v v v v v v v Sending and/or Receiving Nurses: Please use comment section below to note any information pertinent to the patient hand-off not included above. Information / Comments: All questions answered Report received from: Nuvia Turner RN
--- NOTE | 2024-07-02 17:38 | HPE_ITS ---
Date of service: 07/02/24 Time of Service: 17:39 Assessment and Plan Assessment and plan (1) Biliary acute pancreatitis without necrosis or infection: Status: Acute Assessment and plan: Acute pancreatitis likely secondary to common bile duct stone near the ampulla of Rosal[place]. He will likely need an ERCP if his symptoms and lab abnormalities do not improve. Given he has improved somewhat even since presentation to the emergency room I suspect he may have passed the stone. There may be a component of ductal stenosis that is causing some of these liver and pancreatic abnormalities. He may also be a candidate for medications to prevent stone formation. The plan is to trend his labs and discuss again with [facility] gastroenterology in the a.m. regarding the need for EUS/ERCP. (2) Hepatitis: Status: Acute Assessment and plan: He has an acute hepatitis with marked elevation of his transaminases and bilirubin. He does not seem high risk for hepatitis AB or C but will check serology. He does not appear to have had any recent medications that would cause an acute hepatitis. At this point it seems related to a common bile duct blockage. Will trend his liver function tests and discuss EUS/ERCP in the a.m. (3) S/P laparoscopic cholecystectomy: Status: Acute Assessment and plan: Patient is status post laparoscopic scopic cholecystectomy in 2018. CT scan shows absent of her gallbladder. He may have some common bile duct stenosis as a result of the surgery. ERCP may help. He could be a candidate for dilation procedure if needed. (4) Depression with anxiety: Status: Acute Assessment and plan: This appears to be stable. He is here with his and appears to have a full affect. He is going to be n.p.o. sorter hold on his antidepressant. History of Present Illness History of Present Illness Chief Complaint: Pancreatitis/hepatitis Narrative: 64-year-old male with a history of gallstone pancreatitis in 2018, status post laparoscopic cholecystectomy here at [facility]. He had a large gallstone at that time. He has done well since then until the evening of Friday. He developed severe epigastric pain that lasted about an hour and went away completely. On Thursday, June 27, 2024 he had another episode of epigastric pain lasting 15 to 20 minutes and went away completely. This past evening he developed epigastric pain that did not go away. He presented to the emergency room this morning. In the emergency room his labs showed a lipase of greater than 375, abdominal CT scan showed marked pancreatitis with surrounding edema including the duodenum. There appeared to be a 3 mm stone in the distal common duct. We discussed the case with [facility] gastroenterology and they felt that given his liver enzyme abnormalities he would need EUS/ERCP. They reviewed his studies and due to capacity issues felt we should admit him here and trend his labs daily, n.p.o., check hepatitis screen, and hold atorvastatin. He is admitted to the ICU for further monitoring. Review of Systems Narrative: As per HPI. He is otherwise felt well without any chest pain or shortness of breath. No new neurologic symptoms. He has not recently been on an antibiotic nor started any new herbal medications. He does occasionally take apple cider vinegar and honey. Since his laparoscopic cholecystectomy in 2018 he is lost 160 pounds. He admits that in the last few months he has been off of his diet slightly. PFSH All Active Problems (Updated 07/02/24 @ 18:23 by Obey Henderson MD) Hepatitis (Acute) Depression with anxiety (Acute) S/P laparoscopic cholecystectomy (Acute ~07/02/18) Biliary acute pancreatitis without necrosis or infection (Acute) Medical History (Updated 07/02/24 @ 18:23 by Obey Henderson MD) Acute gallstone pancreatitis Acute renal insufficiency Insomnia Constipation Wheezing on auscultation Back pain due to injury Back pain Encounter for postoperative care Trigger finger, left ring finger Injection: 11/05/2021 Calcific tendinitis of left shoulder Calcific tendonitis of right shoulder Anemia IBS (irritable bowel syndrome) Morbid obesity with BMI of 45.0-49.9, adult Acute gallstone pancreatitis Hyperlipidemia Diabetes type 2, controlled Essential hypertension Surgical History History of tonsillectomy Social History Smoking/Tobacco Use Status: Never Smoking risk assessment performed?: Yes Alcohol Intake: current Alcohol Intake frequency: holidays/special occasions only Alcohol type: beer, wine and hard liquor Drug use: Never Substance use type: does not use Household members: spouse Housing: house current occupation: complaint clerk Do you feel safe at home: Yes Do you feel safe in your relationship?: Yes Meds Allergies and Home Medications Allergies Allergy/AdvReac Type Severity Reaction Status Date / Time lisinopril (From Prinivil) AdvReac Unknown Verified 07/02/24 10:45 Home Medications ?Medication ?Instructions ?Recorded ?Confirmed ?Type sertraline 100 mg tablet 100 mg PO DAILY 10/04/13 07/02/24 History atorvastatin 40 mg tablet 40 mg PO DAILY 05/11/18 07/02/24 History spironolactone 25 mg tablet 25 mg PO DAILY 05/11/18 07/02/24 History acetaminophen 650 mg 650 mg PO Q6H PRN PRN pain #30 tabs 07/02/18 07/02/24 Rx tablet,extended release (Tylenol 8 Hour) ibuprofen 600 mg tablet 600 mg PO QID PRN pain #30 tabs 07/02/18 07/02/24 Rx losartan 100 mg tablet 100 mg PO DAILY 09/19/21 07/02/24 History Exam Narrative Exam Narrative: On exam he is fully alert and talkative and in no apparent distress. He is able to give a thorough and accurate history. His lung sounds are clear bilaterally. Heart sounds are regular and strong. His abdomen is obese with redundant tissue. There is no tenderness to palpation in all 4 quadrants. He does note after my exam his epigastric region did feel sore. The lower extremities are both well-perfused and show no evidence of any edema. Neurologically there are no focal deficits. Results Imaging Abdomen CT scan report/results: report reviewed Additional studies: MRI without contrast duplicated CT abdomen results Labs 07/02/24 11:29 07/02/24 11:29 Labs: Laboratory Results - last 24 hr 07/02/24 07/02/24 11:29 12:25 WBC 9.79 RBC 4.94 Hgb 15.0 Hct 45.5 MCV 92 MCH 30.4 MCHC 33.0 RDW 12.3 Plt Count 321 MPV 9.3 Immature Gran % 0.2 Neutrophils % 79.4 Lymphocytes % 11.7 Monocytes % 6.9 Eosinophils % 1.6 Basophils % 0.2 Nucleated RBC % 0.0 Absolute Neutrophils 7.76 H Absolute Lymphocytes 1.15 L Absolute Monocytes 0.68 Absolute Eosinophils 0.16 Absolute Basophils 0.02 ESR 36 H Sodium 142 Potassium 3.5 Chloride 104 Carbon Dioxide 26.4 Anion Gap 11.6 H BUN 14 Creatinine 1.3 Est GFR (CKD-EPI 2020) 61.73 Glucose 135 H Calcium 9.4 Magnesium 2.0 Total Bilirubin 4.98 H AST 950 H ALT 1152 H Alkaline Phosphatase 404 H Lactate Dehydrogenase 356 H Troponin I 9 C-Reactive Protein 1.18 H Total Protein 7.7 Albumin 3.5 Lipase > 375 H Last Vital Signs Temp 36.9 C 07/02/24 16:51 Pulse 62 07/02/24 16:42 Resp 13 07/02/24 17:00 BP 113/76 07/02/24 16:42 Pulse Ox 99 07/02/24 17:00 PAWSS Pt Consumed Any Amount of Alcohol Within the Last 30 days OR had positive NINFA Upon Admission: No Time Spent Time spent with Patient: 40-54 minutes Time was spent: preparing to see the patient(eg.review tests), obtaining and/or reviewing separately otained hiistory, ordering medications,tests, procedures, referring, communicating with other health critical care unit manager, indepentently interpreting results, counseling the patient and care coordination
[2024-07-02] MEDS: Enoxaparin 40 MG/0.4 ML SYR SC (18:48)
[2024-07-03] VITALS (11 sets, daily range): BP systolic 120–122; BP diastolic 76–79; PULSE 66–88; RESP 13–22; TEMP 37–37.7; O2SAT 92–95
[2024-07-03] MEDS: DEXTROSE 5%-0.45% SALINE 1,000 ML 125 ML IV (01:11)
[2024-07-03 01:44] LABS: Bilirubin Small (Negative); Blood Trace-intact (Negative); Clarity Clear (Clear); Glucose Negative (Negative); Ketones Negative (Negative); Leukocyte Esterase Negative (Negative); Nitrite Negative (Negative); pH 5.5 (5-8)
[2024-07-03 01:47] LABS: Bacteria Rare HPF (Negative); C & S Indicated? No; Casts Negative LPF (Negative); Crystals Negative HPF (Negative); Epithelial Cells Negative HPF (Negative); Mucus Negative (Negative); RBC 0-2 HPF (0-2); WBC Negative HPF (0-5)
[2024-07-03 06:40] LABS: Abs Immature Grans 0.02 10^3/uL (0.0-0.06); Absolute Basophil Count 0.03 10^3/uL (0.0-0.2); Absolute Eosinophil Count 0.26 10^3/uL (0.0-0.7); Absolute Monocyte Count 0.72 10^3/uL (0.1-0.8); Absolute Neutrophil Count 9.25 10^3/uL (1.2-6.7); Basophils % 0.3 %; Eosinophils % 2.3 %; Immature Grans % 0.2 %; Lymphocytes % 9.7 %; MCH 30.8 pg (27.0-33.0); MCHC 32.6 % (32.0-36.0); MCV 95 fL (80-95); MPV 9.5 fL (8.0-11.0); Monocytes % 6.3 %; Neutrophils % 81.2 %; Platelet Count 297 10^3/uL (130-400); RBC 4.55 10^6/uL (4.36-5.78); RDW 12.6 % (11.8-14.1); RDW-SD 43.4 fL; WBC 11.39 10^3/uL (4.4-10.8)
[2024-07-03 06:57] LABS: ALT 786 U/L (16-63); AST 447 U/L (15-37); Albumin 2.9 g/dL (3.4-5.0); Alkaline Phosphatase 354 U/L (46-116); Anion Gap 9.8 mmol/L (3-11); BUN 11 mg/dL (7-18); Bilirubin, Total 1.31 mg/dL (0.2-1.0); CO2 27.2 mmol/L (21.0-32.0); CREATININE 1.2 mg/dL (0.70-1.30); Chloride 107 mmol/L (98-107); Estimated GFR 67.95 (mL/min/1.73m2); Glucose 118 mg/dL (74-106); Potassium 3.5 mmol/L (3.5-5.1); Sodium 144 mmol/L (136-145); Total Protein 6.9 g/dL (6.4-8.2)
[2024-07-03 07:14] LABS: Calcium 8.5 mg/dL (8.5-10.1); Lipase > 375 U/L (16-77)
--- NOTE | 2024-07-03 08:57 | INITIAL_ITS ---
Date of service: 07/03/24 Time of Service: 08:58 Care Management Initial Assmt Initial Assessment Reason for Hospitalization: acute pancreatitis Functional Status/Living Situation Patient Presentation: Terry was sitting up on the edge of the bed, talking with his , when CM met with him. He was feeling much better than when he came in last night for abdominal pain. He was found to have a stone in his distal common duct, and pancreatitis. Terry passed the stone on his own, and was discharged this afternoon with plans to f/u with his PCP and possible work-up for ERCP Town of Residence: [facility] Resides with: Spouse (Autumn) Significant Other/Family: Out of area (3 sons and 2 grandchildren. ) Natural Supports: , Autumn, and family Employment Status: Employed (vegetable harvest worker) Advance Directives Advance Directives: Do you have an Advance Directive: N 05/25/18 14:11 AD On File at [facility]: N 05/25/18 14:11 Date Asked 07/02/24 07/02/24 11:03 AD Date Reviewed COLST On File at [facility] No 07/02/24 16:32 COLST Date Scanned Code Status Resuscitation Status Full Code Insurance Coverage/Financial Issues Insurance: [employer] Care Team Visit Care Team Role Provider Type Keenan Cordon MD Primary Care Provider NON-[facility] STAFF PHYSICIAN Goldie Queen MD Emergency Provider [facility] STAFF PHYSICIAN Obey Henderson MD Admit Provider [facility] STAFF PHYSICIAN Attending Provider Discharge Potential Discharge Needs: PCP F/U Appt Anticipated Barriers to Discharge: None Identified Patient/Family Education Needs: Review discharge instructions, discuss Ask Me Three Transportation: Private vehicle Plan: Terry was discharged home early this afternoon with no new orders. He was given instruction to f/u with his PCP for lab work next week. He will drive himself home, followed by his in her car. PFSH All Active Problems (Updated 07/02/24 @ 18:23 by Obey Henderson MD) Hepatitis (Acute) Depression with anxiety (Acute) S/P laparoscopic cholecystectomy (Acute ~07/02/18) Biliary acute pancreatitis without necrosis or infection (Acute) Medical History (Updated 07/02/24 @ 18:23 by Obey Henderson MD) Acute gallstone pancreatitis Acute renal insufficiency Insomnia Constipation Wheezing on auscultation Back pain due to injury Back pain Encounter for postoperative care Trigger finger, left ring finger Injection: 11/05/2021 Calcific tendinitis of left shoulder Calcific tendonitis of right shoulder Anemia IBS (irritable bowel syndrome) Morbid obesity with BMI of 45.0-49.9, adult Acute gallstone pancreatitis Hyperlipidemia Diabetes type 2, controlled Essential hypertension Surgical History History of tonsillectomy Social History Smoking/Tobacco Use Status: Never Smoking risk assessment performed?: Yes Alcohol Intake: current Alcohol Intake frequency: holidays/special occasions only Alcohol type: beer, wine and hard liquor Drug use: Never Substance use type: does not use Household members: spouse Housing: house 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 Do you feel safe at home: Yes Do you feel safe in your relationship?: Yes Readmission Within the Past 30 Days Yes or No: No SDOH(Care Management) Screening Will the Patient Participate in the Screening?: Yes Do you worry about having a steady place to live?: no Problems where you live: no known problems In the past 12 months, have you had to go without electric, gas, oil or water in your home?: no Have you or anyone in your house had to go without enough food to eat?: no Has lack of transportation kept you from medical appointments or from doing things needed for daily living?: no Has anyone in your support network made you feel unsafe for any reason?: no
--- NOTE | 2024-07-03 16:39 | DSE_ITS ---
Date of service: 07/03/24 Time of Service: 13:05 DS: Diagnosis Discharge Diagnosis (1) Biliary acute pancreatitis without necrosis or infection: Status: Acute Asessment and Plan: Presented with a bilirubin of 4.98. Transaminases were markedly elevated. There was evidence of a 3 mm stone near the sphincter of Oddi. Overnight his symptoms improved and his labs markedly improved with a bilirubin dropping to 1.31. It appears that he produces gallstones that he is unable to pass immediately causing transient pancreatitis and hepatitis. Plan is for outpatient ERCP. I spoke with gastroenterology and they are planning to get him on the schedule within 1 to 2 weeks. They will call his home with an appointment. If he has further problems in the meantime he would need to be present to an emergency room and be considered for emergent ERCP. (2) Hepatitis: Status: Acute Asessment and Plan: Acute hepatitis appears to be on the basis of a gallstone causing obstruction. Serology for hepatitis AB and C were sent today. He does not appear to be an infectious hepatitis. He never showed significant jaundice despite a bilirubin of 4.98. His transaminases dropped dramatically overnight. (3) S/P laparoscopic cholecystectomy: Status: Acute Asessment and Plan: History of cholecystectomy. He may have some scarring at the sphincter of Oddi and may benefit from a sphincterotomy at the time of ERCP. (4) Depression with anxiety: Status: Acute Asessment and Plan: His antidepressant meds were held while he was n.p.o. He was in good spirits and left without evidence of significant depressive disorder. Resume home medications. Discharge Plan Disposition Patient Disposition: Home Condition: Improving Discharge Details Reason For Visit: Acute pancreatitis/ hepatitis Admit Date/Time: 07/02/24 15:45 Admit Provider: Obey Henderson Attending Provider: Obey Henderson Primary Care Provider: Keenan Cordon Hospital Course Hospital Course: 64-year-old male with a history of gallstone pancreatitis in 2018, status post laparoscopic cholecystectomy here at [facility]. He had a large gallstone at that time. He has done well since then until the evening of Friday. He developed severe epigastric pain that lasted about an hour and went away completely. On Friday, June 27, 2024 he had another episode of epigastric pain lasting 15 to 20 minutes and went away completely. 07/01 he developed epigastric pain that did not go away. He presented to the emergency room 07/02. In the emergency room his labs showed a lipase of greater than 375, abdominal CT scan showed marked pancreatitis with surrounding edema including the duodenum. There appeared to be a 3 mm stone in the distal common duct. We discussed the case with [facility] gastroenterology and they felt that given his liver enzyme abnormalities he would need EUS/ERCP. They reviewed his studies and due to capacity issues felt we should admit him here and trend his labs daily, n.p.o., check hepatitis screen, and hold atorvastatin. He was admitted to the ICU for further monitoring. Overnight his pain improved. LFTs dropped by 50% and T-bili came down to 1.31, D/W [facility]astro, no need for emergent ERCP, schedule elective outpt ERCP for r 1-2 weeks, (they will arrange). Repeat labs this week. No need for Ursidiol. Home Meds and New Rx's Prescriptions: Continued losartan 100 mg tablet 100 mg PO DAILY sertraline 100 MG tablet 100 mg PO DAILY atorvastatin 40 mg Tablet 40 mg PO DAILY spironolactone 25 mg Tablet 25 mg PO DAILY acetaminophen [Tylenol 8 Hour] 650 mg tablet extended release 650 mg PO Q6H PRN PRN (Reason: pain) Qty: 30 0RF ibuprofen 600 mg tablet 600 mg PO QID PRN (Reason: pain) Qty: 30 0RF Discharge Instructions Instructions: Gallstones (DC) Referrals: Keenan Cordon MD [Primary Care Provider] - (Please call Dr. Cordon's office to order LFTs and lipase for , 07/08) Activity:: Activity as Tolerated Equipment/Supplies:: No Equipment Needed Diet:: As Tolerated Discharge Orders Discharge Orders: Discharge Order (Routine); Ordered 07/03/24 Ordered By: Obey Henderson Discharge Data Discharge Date/Time-TO BE ENTERED AT DEPARTURE: 07/03/24 13:13 DS: Summary Time Spent with Patient providing and/or coordinating discharge services: Greater than 30 minutes Status at Discharge Functional status at discharge: independent ambulation Overall status at discharge: patient is progressing back to baseline Mental Status: mental status grossly normal Speech and Movement: speech and movement normal Mood: congruent mood Affect: normal affect Quality:SDOH Health Related Social Needs: No Data to Display Exam Narrative Exam Narrative: On exam he is in good spirits and in no apparent distress. He had no outward signs of jaundice. His abdominal exam revealed no evidence of an acute abdomen. He is essentially nontender in all 4 quadrants without guarding or rebound. My exam did not appear to reproduce or create any new pain in his abdomen. Psych Mental Status: mental status grossly normal Speech and Movement: speech and movement normal Mood: congruent mood Affect: normal affect DS: Data Vitals/I&O Vitals and I&O: Vital Signs Temperature 37.3 C 07/03/24 08:45 Temperature Source Temporal Artery Scan 07/03/24 08:45 Pulse 70 07/03/24 11:37 Pulse 88 07/03/24 12:00 Respiratory Rate 16 07/03/24 12:00 Respiratory Effort Normal 07/02/24 12:50 Respiratory Depth Normal 07/02/24 12:50 Respiratory Pattern Normal 07/02/24 12:50 Blood Pressure 121/76 07/03/24 11:37 Blood Pressure Mean 90 07/03/24 11:37 Blood Pressure Position Sitting 07/02/24 11:35 Pulse Oximetry 95 07/03/24 05:23 Oxygen Delivery Method Room Air 07/03/24 02:38 Oxygen Flow Rate 0 07/03/24 02:38 Pain Level 0 07/03/24 13:13 Intake & Output 07/02/24 07/03/24 07/03/24 23:59 11:59 23:59 Intake Total 2200 / 2400 200 / 2400 Output Total 350 / 350 500 / 500 Balance -350 / -330 1700 / 1900 200 / 1900 Weight 129.4 kg Intake: IV 2000 / 1999 Oral 200 / 400 200 / 400 Output: Urine 350 / 350 500 / 500 Other: Urine Color Dark Clementina Dark Clementina Urine Odor Normal Data Completed and Pending Labs on day of discharge: Labs from last 24 hours 07/03/24 07/03/24 06:15 01:30 WBC 11.39 H RBC 4.55 Hgb 14.0 Hct 43.0 MCV 95 MCH 30.8 MCHC 32.6 RDW 12.6 Plt Count 297 MPV 9.5 Immature Gran % 0.2 Neutrophils % 81.2 Lymphocytes % 9.7 Monocytes % 6.3 Eosinophils % 2.3 Basophils % 0.3 Nucleated RBC % 0.0 Absolute Neutrophils 9.25 H Absolute Lymphocytes 1.10 L Absolute Monocytes 0.72 Absolute Eosinophils 0.26 Absolute Basophils 0.03 Sodium 144 Potassium 3.5 Chloride 107 Carbon Dioxide 27.2 Anion Gap 9.8 BUN 11 Creatinine 1.2 Est GFR (CKD-EPI 2020) 67.95 Glucose 118 H Calcium 8.5 Total Bilirubin 1.31 H AST 447 H ALT 786 H Alkaline Phosphatase 354 H Total Protein 6.9 Albumin 2.9 L Lipase > 375 H Urine Color Yellow Urine Clarity Clear Urine pH 5.5 Ur Specific [place] 1.020 Urine Protein Negative Urine Ketones Negative Urine Blood Trace-intact H Urine Nitrite Negative Urine Bilirubin Small H Urine Urobilinogen 1.0 H Ur Leukocyte Esterase Negative Urine RBC 0-2 Urine WBC Negative Ur Epithelial Cells Negative Urine Crystals Negative Urine Bacteria Rare Urine Casts Negative Urine Mucus Negative Ur Culture Indicated? No Urine Glucose Negative Hepatitis A Ab Total Pending Hep B Core IgM Ab Pending Hepatitis C Antibody Pending PFSH All Active Problems (Updated 07/02/24 @ 18:23 by Obey Henderson MD) Hepatitis (Acute) Depression with anxiety (Acute) S/P laparoscopic cholecystectomy (Acute ~07/02/18) Biliary acute pancreatitis without necrosis or infection (Acute) Medical History (Updated 07/02/24 @ 18:23 by Obey Henderson MD) Acute gallstone pancreatitis Acute renal insufficiency Insomnia Constipation Wheezing on auscultation Back pain due to injury Back pain Encounter for postoperative care Trigger finger, left ring finger Injection: 11/05/2021 Calcific tendinitis of left shoulder Calcific tendonitis of right shoulder Anemia IBS (irritable bowel syndrome) Morbid obesity with BMI of 45.0-49.9, adult Acute gallstone pancreatitis Hyperlipidemia Diabetes type 2, controlled Essential hypertension Surgical History History of tonsillectomy Social History Smoking/Tobacco Use Status: Never Smoking risk assessment performed?: Yes Alcohol Intake: current Alcohol Intake frequency: holidays/special occasions only Alcohol type: beer, wine and hard liquor Drug use: Never Substance use type: does not use Household members: spouse Housing: house 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
[2024-07-05 10:03] LABS: Hepatitis C Ab w Rflx HCV PCR Negative (Negative)
[2024-07-05 10:26] LABS: Hep A Total Ab w Rflx IgM Negative (Negative)
[2024-07-05 15:33] LABS: HBc IgM Ab, S Negative (Negative)
== END 2024-07-03 13:13 | disposition home or self-care (01) | DRG 439 ==
LOC: ER 11:43 → ICU 16:32
PROVIDERS: Admitting Provider Family Medicine; Emergency Provider Emergency Medicine; PCP Family Medicine; Visit Provider Family Medicine
DX: K85.10 Biliary acute pancreatitis without necrosis or infection (principal); K80.51 Calculus of bile duct without cholangitis or cholecystitis with obstruction; K75.9 Inflammatory liver disease, unspecified; F41.8 Other specified anxiety disorders; Z90.49 Acquired absence of other specified parts of digestive tract; G47.00 Insomnia, unspecified; K59.00 Constipation, unspecified; D64.9 Anemia, unspecified; E11.9 Type 2 diabetes mellitus without complications; I10 Essential (primary) hypertension; E78.5 Hyperlipidemia, unspecified; E66.9 Obesity, unspecified; Z68.38 Body mass index [BMI] 38.0-38.9, adult
CPT/HCPCS: 00123; 36415; 80053; 83690; 85652; 86709; 86803; 93005; 96361; 96374; 96375; 99285; J1650; 74177; 74181; 81003; 81015; 83615; 83735; 84484; 85025; 86140; 86705; 93010; 99222; 99239; G0378; J1885; J3490; J7042

== ENCOUNTER 2024-12-01 21:02 | Outpatient (REF) | payer OTHER, SELFPAY ==
[2024-12-01 17:27] LABS: ALT 29 U/L (16-63); AST 22 U/L (15-37); Albumin 3.7 g/dL (3.4-5.0); Alkaline Phosphatase 114 U/L (46-116); Anion Gap 9.8 mmol/L (3-11); BUN 18 mg/dL (7-18); Bilirubin, Total 0.5 mg/dL (0.2-1.0); CO2 28.2 mmol/L (21.0-32.0); Calcium 9.3 mg/dL (8.5-10.1); Chloride 104 mmol/L (98-107); Estimated GFR 84.57 (mL/min/1.73m2); Glucose 93 mg/dL (74-106); Potassium 4.4 mmol/L (3.5-5.1); Sodium 142 mmol/L (136-145); Total Protein 7.2 g/dL (6.4-8.2)
[2024-12-01 19:41] LABS: Hemoglobin A1C 4.9 % (<5.7)
== END 2024-12-01 21:03 | disposition home or self-care (01) ==
LOC: NCHCN 21:02
PROVIDERS: PCP Family Medicine; Visit Provider Family Medicine
DX: Z00.00 Encounter for general adult medical examination without abnormal findings (principal)
CPT/HCPCS: 80053; 83036